=== PATIENT | male | born 1960 | race Caucasian/White ===

== ENCOUNTER 2018-11-01 20:43 | Emergency (ER) | payer OTHER, SELFPAY ==
[2018-11-01 20:44] VITALS: BP 203/114; PULSE 90; RESP 18; TEMP 36.1; O2SAT 99; BMI 31.2
--- NOTE | 2018-11-01 20:47 | EKG12_ITS ---
Test Reason : CP Blood Pressure : / mmHG Vent. Rate : 096 BPM Atrial Rate : 096 BPM P-R Int : 118 ms QRS Dur : 104 ms QT Int : 348 ms P-R-T Axes : 047 082 065 degrees QTc Int : 439 ms Normal sinus rhythm Normal ECG Confirmed by MORRIS BLOUNT, REAGAN ([id number]), television news video editor SESAR FLORES ([id number]) on 11/05/2018 1:19:36 PM Referred By: DR LAM Confirmed By:REAGAN CACERES MD
--- NOTE | 2018-11-01 20:51 | ED.RN ---
CALLED FOR5 EKG, PULLED OLD EKGS FOR
--- NOTE | 2018-11-01 21:04 | ED.RN ---
EKG obtained in triage. When this RN went to start IV and obtain labs pt states he has to go outside and smoke before you start any of that crap
[2018-11-01 21:48] VITALS: BP 166/105; PULSE 90; RESP 18; O2SAT 97
[2018-11-01 21:50] VITALS: O2SAT 98
--- NOTE | 2018-11-01 22:00 | RAD_ITS ---
HISTORY: C/O ABD PAIN, CHEST PAIN AND HEADACHE X2 WEEKS. GETTING WORSE EXAMINATION/TECHNIQUE: XR Chest 1 View: COMPARISON: 06/22/15 CXR FINDINGS: LINES/DEVICES: None. LUNGS: No consolidation, edema or effusion. No pneumothorax. MEDIASTINUM AND CARDIOVASCULAR STRUCTURES: Cardiac silhouette not enlarged. Central airways and mediastinal contour are unremarkable. BONES AND SOFT TISSUES: Unremarkable. RAD/Chest 1 View (Portable) IMPRESSION: No radiographic evidence of acute cardiopulmonary disease. at 2240 Reported and signed by: Aston Gupta MD Electronically Signed: Aston Gupta, at 22:38 EDT Tel , Service support ,
[2018-11-01 22:19] LABS: Absolute Lymphocyte Count 2.44 X10^3/ul (0.83-4.51); Absolute Neutrophil Count 6.7 X10^3/uL (2.0-7.7); Basophil# 0.03 X10^3/uL; Basophil% 0.3 % (0-1); Eosinophil# 0.14 X10^3/uL; Eosinophils% 1.4 % (0-5); Hematocrit 48.5 % (40-54); Lymphocyte # 2.44 X10^3/ul (4.0); Lymphocyte % 24.6 % (19-41); Mean Corpuscular Volume 85.7 fL (80-94); Mean Platelet Vol. 9.2 fl (6.2-12.0); Monocyte# 0.62 X10^3/uL; Monocyte% 6.3 % (0-10); Neutrophil # 6.66 X10^3/uL (2.7-7.7); Neutrophil % 67.1 % (47-70); Platelet Count 181 K/mm3 (150-450); RBC Distribution Width CV 13.2 % (11.6-14.6); RBC Distribution Width SD 40.7 fl (35.1-43.9); Red Blood Count 5.66 M/mm3 (4.6-6.2); White Blood Count 9.9 K/mm3 (4.4-11.0)
[2018-11-01 22:26] LABS: Hemoglobin 16.8 g/dl (13.0-16.5); Mean Corp Hgb Conc 34.6 g/gl (32-36); Mean Corpuscular Hgb 29.7 pg (27.0-32.0); POSITIVE COUNT NO; POSITIVE DIFFERENTIAL NO; POSITIVE MORPHOLOGY NO
[2018-11-01 22:31] LABS: Anion Gap 7 (5-15); BUN 21 mg/dL (7-18); BUN/Creat Ratio 17.8 RATIO (10-20); Calcium,Total 8.4 mg/dL (8.5-10.1); Chloride 108 mmol/L (98-107); Creatinine, Serum 1.18 mg/dL (0.70-1.30); EST Glomerular Filtration Rate 68 mL/min (>60); Est Glom Filt Rate - Afr Amer 82 mL/min (>60); Estimated Creatinine Clearance 85.82 ml/min; Glucose 142 mg/dL (74-106); Potassium 4.3 mmol/L (3.5-5.1); Sodium Level 139 mmol/L (136-145)
[2018-11-01] MEDS: Morphine 4 MG/ML Syringe IV (22:39)
[2018-11-01] MEDS: Aspirin 81 MG TAB.CHEW 324 MG PO (22:39)
[2018-11-01 23:16] VITALS: PULSE 79; RESP 17; O2SAT 97
--- NOTE | 2018-11-01 23:40 | ED.RN ---
LAB CALLED, THE LIVER PROFILE RESULT WILL BE DELAYED
--- NOTE | 2018-11-02 00:03 | ED.VISSUMM ---
- ER Visit Summary Date of Service: 11/02/18 Chief Complaint: Chest pain History of Present Illness: The patient is a 58 M who presents with chest pain and abdominal pain that began tonight. Patient states the pain is over the left side of his chest. Patient describes as a pressure. Patient states nothing seems to make it better or worse. Recent states his abdominal pain is over the epigastric area and radiates up into his chest. Patient denies any nausea or vomiting. Patient does admit to some diaphoresis and shortness of breath. Patient also admits to a cough. Patient denies any sputum production. Patient does admit to some lightheadedness and some palpitations. Patient also admits to a headache. Patient denies any fevers or chills. Patient has a history of hypertension. Patient has a family history of coronary artery disease in his father brother at a young age. Patient is a smoker. Patient denies any PE risk factors. Physical Examination: Vital signs are stable except for an elevated blood pressure of 203/114. Patient is afebrile. Patient is in no acute distress. Oral mucosa is pink and moist. Neck is supple. Trachea is midline. There is no JVD noted. Heart was regular rate and rhythm. Lungs are clear and equal bilaterally. Abdomen is soft. Bowel sounds are normal. There is some mild epigastric tenderness. There is no rebound or guarding noted. There is no distention. Cranial nerves II through XII are intact. There are no focal motor or sensory deficits noted. Test Results: EKG showed normal sinus rhythm with a rate of 96. There are no acute ST or T wave changes noted. This was unchanged compared to previous EKG dated 06/23/2015. Portable chest x-ray was obtained. There is no acute cardiopulmonary process. CBC and basic metabolic profile were obtained and were within normal limits. Hepatic profile and lipase were obtained and are normal. Troponin was normal. Emergency Department Course and Treatment: Patient was given aspirin. Patient was given an injection of morphine for his headache. Patient felt better on reevaluation. Patient was still having some mild epigastric pain. Patient has a ALIA risk score of 2. Patient wants to go home. Patient was instructed to follow-up with his primary care physician in 3 to 5 days. Patient was instructed on signs and symptoms which should prompt return to the emergency department. Patient understood and was agreeable with plan. All questions were answered. Disposition: Discharge home Impression: 1. Epigastric abdominal pain 2. Chest pain 3. Headache This note was generated with [employer] dictation software. It may contain incorrect words, spelling, and punctuation that were not noted in review of the chart prior to signing ED Disposition - Plan for ED Patient: Disposition: Home or Assisted Living Diagnosis: Epigastric abdominal pain of unknown etiology, Chest pain of uncertain etiology, Headache Instructions: CHEST PAIN, Uncertain Cause, EPIGASTRIC PAIN (Uncertain cause) Referrals: Gunner Mcbride MD [Primary Care Provider] - 3-5 Days
[2018-11-02 00:08] VITALS: BP 176/105; PULSE 73; RESP 21; O2SAT 97
[2018-11-02 00:09] LABS: AST(SGOT) 31 U/L (15-37); Alanine Aminotransfer ALT/SGPT 31 U/L (16-61); Albumin, Serum 3.5 g/dL (3.2-5.0); Alkaline Phosphatase 113 U/L (45-117); Bilirubin, Direct < 0.05 mg/dL (0.00-0.30); Globulin 3.7 g/dL (2.2-4.2); Lipase 82 U/L (73-393); Protein, Total 7.2 g/dL (6.4-8.2)
--- NOTE | 2018-11-02 00:31 | ED.RN ---
DR. RANGEL INFORMED OF PT BP. NO NEW ORDERS AT THIS TIME. WILL CONTINUE TO MONITOR.
[2018-11-02 01:23] VITALS: BP 171/85; PULSE 60; RESP 18; O2SAT 98
--- NOTE | 2018-11-02 01:33 | ED.RN ---
PT EDUCATED ON BLOOD PRESSURE MEDICATION AND IMPORTANCE OF MONITORING BP AT HOME. PT DISCUSSED MATTERS WITH DR. RANGEL ALSO. PT VERBALIZES UNDERSTANDING.
== END 2018-11-02 01:24 | disposition home or self-care (01) ==
PROVIDERS: Emergency Provider Emergency Medicine; Family Provider Family Medicine; PCP Family Medicine
DX: R10.13 Epigastric pain (principal); R07.9 Chest pain, unspecified; R05 Cough; R51 Headache; Z82.49 Family history of ischemic heart disease and other diseases of the circulatory system; I10 Essential (primary) hypertension; J44.9 Chronic obstructive pulmonary disease, unspecified; F17.210 Nicotine dependence, cigarettes, uncomplicated
CPT/HCPCS: 71045; 80048; 80076; 83690; 84484; 85025; 93005; 96374; 99284; A4216

== ENCOUNTER 2019-04-24 19:44 | Emergency (ER) | payer OTHER, SELFPAY ==
[2019-03-22 12:09] VITALS: BMI 31.2
[2019-04-24] VITALS (7 sets, daily range): BP systolic 178–199; BP diastolic 91–105; PULSE 82–95; RESP 18–22; TEMP 36.6–37; O2SAT 94–98; BMI 28.7
--- NOTE | 2019-04-24 20:51 | EKG12_ITS ---
Test Reason : CP Blood Pressure : / mmHG Vent. Rate : 083 BPM Atrial Rate : 083 BPM P-R Int : 124 ms QRS Dur : 106 ms QT Int : 360 ms P-R-T Axes : 032 080 109 degrees QTc Int : 423 ms Normal sinus rhythm Incomplete right bundle branch block ST & T wave abnormality, consider lateral ischemia Abnormal ECG Confirmed by GÓMEZ BLOUNT, PB ([id number]), sports editor RHIANNA MONROE ([id number]) on 04/26/2019 10:31:46 AM Referred By: ROB Confirmed By:GUERRERO MAGAÑA MD
--- NOTE | 2019-04-24 20:52 | ED.VIS.DYS ---
History of Present Illness Chief Complaint: Chest Pain Informant: Patient Onset: Today - this AM; present all day Activity at onset: - - coughing Timing: Intermittent Quality: - - pressure. location: left chest; no radiation Current Severity: Moderate Maximum Severity: Moderate Worsened by: Coughing Relieved by: Rest Associated Symptoms: Cough - occasionally productive, but I haven't seen it, I just swallow it. Chest Pain: Pressure - left chest Narrative: History of COPD, has had a cough and increased COPD symptoms for the past 3 days. No fevers or chills or leg swelling or orthopnea. Has a history of heart attack, never had intervention or surgery for that but is treated medically. He has had bilateral ear discharge and decreased hearing for the past month. He was seen in urgent care 3 days ago and prescribed drops for otitis externa, he did them on both sides and they did not help at all. He does have ear pain. He states it started with 1 year and then went to the other, he does not remember feeling a sudden pop or anything obvious. 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 (2) COPD (chronic obstructive pulmonary disease) Status: Chronic (3) Essential (primary) hypertension Status: Chronic (4) Hyperlipidemia Status: Chronic (5) Right bundle branch block Status: Chronic (6) Tobacco abuse disorder Status: Chronic Past Medical History - Allergies and Home Meds Allergies/Adverse Reactions: Allergies varenicline [From Chantix] Allergy (Verified 04/24/19 19:49) rash rash Primary Care Physician: Gunner Mcbride MD [Primary Care Provider] - Surgical History: - - Cardiac catheterization estimated 2009 Lives: Spouse/ Significant Other Smoking Status: Current every day smoker Drugs: None - Family History Sibling Family History: Family History (Last Reviewed 03/22/19 @ 12:09 by Zandra Gama) Mother Cancer Father Hypertension Diabetes Brother Hypertension COPD (chronic obstructive pulmonary disease) CAD (coronary artery disease) Family History: Reports: Heart Disease - One brother with history of heart attack, another brother with multiple stents Review of Systems General: Reports: Malaise. Denies: Chills, Fever, Sweats Eyes: Denies: Visual changes - bilaterally, Diplopia ENT: Reports: Bilateral ear pain - And discharge with decreased hearing. Denies: Rhinorrhea, Sore throat Cardiovascular: Reports: Chest pain. Denies: Palpitations Respiratory: Reports: Dyspnea, Cough, Sputum, Dyspnea on exertion. Denies: Orthopnea Gastrointestinal: Denies: Abdominal pain, Nausea, Vomiting, Diarrhea, Melena, Hematochezia Genitourinary: Denies: Dysuria, Hematuria, Frequency Musculoskeletal: Reports: Back pain - Low back today. Denies: Swelling, Extremity Pain Skin: Denies: Rash, Wounds Neurological: Denies: Headache, Weakness, Numbness Physical Exam Vital Signs/Narrative: Vital Signs Temp Pulse Resp BP Pulse Ox 04/24/19 19:45 98.6 F 95 18 199/105 H 95 Inital Vital Signs reviewed: Yes General: Well nourished, Well developed, No Acute Distress Head: Normocephalic, Atraumatic Eyes: Perrl, EOMI ENT: Moist mucous membranes, No rhinorrhea, - - There is pain with manipulation of the pinna and tragus in both ears. Both canals are mildly swollen, erythematous, and tender on speculum exam. A small part of the tympanic membrane can be visualized on the right, but uncertain about visualizing it on the left due to discharge being present. The canals are nonswollen shut. The discharge on the left ear is foul-smelling. Neck: Supple, Nontender, No lymphadenopathy, No JVD Cardiovascular: Regular rate, Regular rhythm, No murmurs Respiratory: No distress, CTA bilaterally, Chest nontender, Diminished - Throughout, symmetrically Abdomen: Soft, Nontender, Nondistended, Normal bowel sounds Back: Nontender, Normal Inspection Extremities: Nontender, No edema. Negative for: Calf Tenderness Skin: Normal color, No rash, No Trauma Neurological: Alert, Oriented x3, Cranial nerves II-XII grossly intact, Normal Strength, Normal Sensation, Normal Gait Psychological: Normal affect, Normal Mood Diagnostic/Tx/Re-eval Impressions Chest X-Ray 04/24/19 21:17 IMPRESSION: Old granulomatous disease on the left. No acute cardiopulmonary pathology Electronically Signed: Gunner Yip MD at 21:29 EST , Service support , 04/24/19 21:17 Chest PA and Lateral [RAD] Stat Laboratory Results 04/24/19 04/24/19 20:15 20:15 WBC 8.1 RBC 5.22 Hgb 15.8 Hct 44.9 MCV 86.0 MCH 30.3 MCHC 35.2 RDW Std Deviation 38.7 RDW Coeff of Juan José 12.5 Plt Count 170 MPV 9.4 Immature Gran % (Auto) 0.200 Neut % (Auto) 67.7 Lymph % (Auto) 18.1 L [place] % (Auto) 12.3 H Eos % (Auto) 1.0 Baso % (Auto) 0.7 Absolute Neuts (auto) 5.4 Absolute Lymphs (auto) 1.46 Nucleated RBC % 0 Sodium 142 Potassium 3.8 Chloride 109 H Carbon Dioxide 28.0 Anion Gap 5 BUN 17 Creatinine 1.12 Estim Creat Clear Calc 90.42 Est GFR (MDRD) Af Amer 87 Est GFR (MDRD) Non-Af 72 BUN/Creatinine Ratio 15.2 Glucose 124 H Calcium 8.4 L Troponin I 0.019 - Rhythm Strip Rhythm Strip: Sinus Rhythm Rate: 83 Ectopy: None - EKG Initial EKG Interpretation: Sinus Rhythm, No Acute Injury Pattern, Inverted T-Waves - Laterally without ST segment deviations Prior: Changed - Compared with 10/2018 Treatment - Dyspnea: Albuterol, Atrovent, Steroid Repeat Evaluation: Improved - Medical Decision Making Patient presenting with a COPD exacerbation that is relatively mild. Chest x-ray shows no pneumonia, and he feels better after nebulizer treatment. Additionally, his chest discomfort improved after a nebulizer treatment. Given that he had some mild nonspecific repolarization abnormalities on his EKG, he has been having chest discomfort all day and his troponin is negative, and there is no sign of ST segment deviation, and given that it improved with a nebulizer, I suspect it is pulmonary in etiology. It is not pleuritic with deep inspiration, only worse when he coughs, and he has no signs of a DVT, nor a history of thromboembolic disease. I met a very low suspicion of pulmonary embolus here. I think he is stable to be discharged home on an antibiotic to prevent bacterial superinfection and prednisone for his COPD. With regards to his ears, exam is limited due to painful speculum exam and discharge especially in the canal of the left ear. His exam certainly consistent with bilateral otitis externa, he has no mastoid tenderness, swelling, erythema to suggest mastoiditis or malignant otitis. Regardless since he failed topical therapy, and I cannot rule out middle ear pathology, I think it would be reasonable to place him on an antibiotic which we are already doing for COPD, and have him follow-up with ENT. I discussed this with him, he states he already has an appointment with ENT 5 days from now on Monday. ED Disposition - Plan for ED Patient: Disposition: Home or Assisted Living Diagnosis: Bilateral otitis externa, Left-sided chest pain, COPD exacerbation Instructions: CHEST PAIN, NonCardiac, Copd Flare Prescriptions: Prednisone [Deltasone] 40 mg PO DAILY #10 tab Transmission Status: Pending to [facility] levoFLOXacin tablet [Levaquin] 500 mg PO DAILY #7 tab Transmission Status: Pending to [facility] Referrals: Gunner Mcbride MD [Primary Care Provider] - 3-5 Days if not improving
[2019-04-24] MEDS: Ipratropium/Albuterol Sulfate 3 ML AMPUL.NEB INHALATION (21:01)
[2019-04-24] MEDS: MethylPREDNISolone 125 MG/2 ML Vial IV (21:04)
--- NOTE | 2019-04-24 21:17 | RAD_ITS ---
STUDY: X-RAY CHEST REASON FOR EXAM: Male, 58 years old. COUGH, SOB, LEFT SIDED CHEST PAIN TECHNIQUE: PA and lateral COMPARISON: None. FINDINGS: Lungs are mildly hyperinflated but clear. There is tiny calcified granuloma in left lower lobe. There is no demonstrated pleural abnormality. Normal size heart. Normal mediastinum and hetal. Normal visualized pulmonary arteries. Normal visualized aortic arch and descending thoracic aorta. Dorsal spine demonstrates mild spondylosis.. Normal visualized ribs, clavicles, and shoulders. There is no demonstrated abnormality of the visualized soft tissue structures of the upper abdomen. RAD/Chest PA and Lateral IMPRESSION: Old granulomatous disease on the left. No acute cardiopulmonary pathology Electronically Signed: Gunner Yip MD at 21:29 EST , Service support ,
[2019-04-24 21:24] LABS: Absolute Lymphocyte Count 1.46 X10^3/uL (0.83-4.51); Absolute Neutrophil Count 5.4 X10^3/uL (2.0-7.7); Basophil# 0.06 X10^3/uL; Basophil% 0.7 % (0-1); Eosinophil# 0.08 X10^3/uL; Hematocrit 44.9 % (40-54); Hemoglobin 15.8 g/dL (13.0-16.5); Lymphocyte # 1.46 X10^3/ul (4.0); Lymphocyte % 18.1 % (19-41); Mean Corp Hgb Conc 35.2 g/dL (32-36); Mean Corpuscular Hgb 30.3 pg (27.0-32.0); Mean Platelet Vol. 9.4 fl (6.2-12.0); Monocyte# 0.99 X10^3/uL; Monocyte% 12.3 % (0-10); NRBC Flagged by Analyzer 0 % (0-5); Neutrophil # 5.44 X10^3/uL (2.7-7.7); Neutrophil % 67.7 % (47-70); Platelet Count 170 K/mm3 (150-450); RBC Distribution Width CV 12.5 % (11.6-14.6); RBC Distribution Width SD 38.7 fl (35.1-43.9); Red Blood Count 5.22 M/mm3 (4.6-6.2); White Blood Count 8.1 K/mm3 (4.4-11.0)
[2019-04-24 21:38] LABS: Anion Gap 5 (5-15); BUN 17 mg/dL (7-18); BUN/Creat Ratio 15.2 RATIO (10-20); Calcium,Total 8.4 mg/dL (8.5-10.1); Chloride 109 mmol/L (98-107); Creatinine, Serum 1.12 mg/dL (0.70-1.30); EST Glomerular Filtration Rate 72 mL/min (>60); Est Glom Filt Rate - Afr Amer 87 mL/min (>60); Estimated Creatinine Clearance 90.42 ml/min; Glucose 124 mg/dL (74-106); Potassium 3.8 mmol/L (3.5-5.1); Sodium Level 142 mmol/L (136-145)
[2019-04-24] MEDS: cloNIDine HCl 0.1 MG Tablet 0.2 MG PO (22:34)
== END 2019-04-24 22:52 | disposition home or self-care (01) ==
PROVIDERS: Emergency Provider Emergency Medicine; Family Provider Family Medicine; PCP Family Medicine
DX: J44.1 Chronic obstructive pulmonary disease with (acute) exacerbation (principal); H60.93 Unspecified otitis externa, bilateral; I25.10 Atherosclerotic heart disease of native coronary artery without angina pectoris; I10 Essential (primary) hypertension; E78.5 Hyperlipidemia, unspecified; I45.10 Unspecified right bundle-branch block; F17.210 Nicotine dependence, cigarettes, uncomplicated; I25.2 Old myocardial infarction; Z88.1 Allergy status to other antibiotic agents
CPT/HCPCS: 71046; 80048; 84484; 85025; 93005; 94640; 96374; 99285; A4216

== ENCOUNTER 2020-09-27 19:52 | Emergency (ER) | payer BC, SELFPAY ==
[2020-09-27] VITALS (10 sets, daily range): BP systolic 171–257; BP diastolic 97–131; PULSE 67–87; RESP 14–18; TEMP 36.4; O2SAT 97–99; BMI 31.8
--- NOTE | 2020-09-27 20:15 | EKG12_ITS ---
Test Reason : HYPERTENSION Blood Pressure : / mmHG Vent. Rate : 081 BPM Atrial Rate : 081 BPM P-R Int : 154 ms QRS Dur : 112 ms QT Int : 378 ms P-R-T Axes : 067 062 110 degrees QTc Int : 439 ms Normal sinus rhythm ST & T wave abnormality, consider lateral ischemia Abnormal ECG Confirmed by MORRIS BLOUNT, REAGAN ([id number]), editor managing newspaper SESAR FLORES ([id number]) on 09/30/2020 12:49:21 PM Referred By: ISABEL Confirmed By:REAGAN CACERES MD
--- NOTE | 2020-09-27 20:16 | CT_ITS ---
EXAM: CT HEAD WITHOUT INTRAVENOUS CONTRAST : 1960 CLINICAL INDICATION: headache, elevated htn, normally controlled TECHNIQUE: Multiple axial images were obtained of the head without intravenous contrast. This CT exam was performed using one or more of the following dose reduction techniques: automated exposure control, adjustment of the mA and/or kV according to patient size, and/or use of iterative reconstruction technique. This report was created using [employer] report generation technology. COMPARISON: 06/02/2014 FINDINGS: BRAIN AND EXTRA-AXIAL SPACES: Unremarkable. No intra- or extra-axial hemorrhage. No evidence of acute infarct. No intracranial mass or mass effect. There is preservation of the whitfield/white matter interface. Posterior fossa structures are unremarkable. Ventricles are appropriate for age. No hydrocephalus. Basal cisterns are patent. BONES/JOINTS: Unremarkable. No discrete lytic or blastic abnormalities. SINUSES: Unremarkable as visualized. Clear. MASTOID AIR CELLS: Unremarkable. Clear. ORBITS: Visualized globes, extraocular muscles, optic nerves and retrobulbar fat appear unremarkable. CT/Brain/Head without Contrast IMPRESSION: Negative head/brain CT without intravenous contrast. Individualized dose optimization techniques were used for this CT. at 2111 Reported and signed by: Raul Castillo MD Electronically Signed: Raul Castillo MD at 21:10 EDT Tel , Service support ,
--- NOTE | 2020-09-27 20:18 | EX.ED.DYSGE1 ---
HPI History of Present Illness Chief Complaint: Dental Narrative Narrative: 59-year-old male presenting for chief complaint of dental pain he has a bad right upper tooth. He states he was unable to get into a dentist. Patient states that he believes his dental pain is driving his blood pressure up. He does not check it on a regular basis. He cannot recall his medications that he takes but he states have not changed. He has not seen his physician in a while. He denies chest pain or shortness of breath. He does complain of headache which is pretty severe as well as dental pain. [facility] Medical History (Updated 09/27/20 @ 22:[address] Abimael Owen DO) Arthritis Atherosclerotic heart disease [place] coronary artery w/angina pectoris COPD (chronic obstructive pulmonary disease) Essential (primary) hypertension Heart disease Right bundle branch block SOB (shortness of breath) Stomach ulcer Home Medications hydrochlorothiazide 12.5 mg capsule 12.5 mg PO DAILY cap 06/18/20 [History Last Taken Unknown] losartan 100 mg tablet 100 mg PO DAILY tab 06/18/20 [History Last Taken Unknown] amoxicillin-pot clavulanate [Augmentin] 1 tab PO BID #20 tab 09/27/20 [Rx Last Taken Unknown] metoprolol succinate 25 mg PO DAILY #30 ea 09/27/20 [Rx Last Taken Unknown] oxycodone-acetaminophen [Percocet] 1 tab PO Q6H PRN 3 Days #12 tab 09/27/20 [Rx Last Taken Unknown] Allergy/AdvReac Type Severity Reaction Status Date / Time No Known Allergies Allergy Verified 09/27/20 19:58 Family History Mother Cancer Father Hypertension Diabetes Brother Hypertension COPD (chronic obstructive pulmonary disease) CAD (coronary artery disease) Surgical History History of left heart catheterization Social History Smoking Status: Current every day smoker tobacco type: cigarettes alcohol intake: never substance use type: does not use ROS ROS ED Constitutional Constitutional ED: Denies chills, fever(s) or sweats Eyes Eyes: Denies blurry vision or change in vision ENT ENT ED: Reports other Details: Dental pain ; Denies ear pain, rhinorrhea or sore throat Cardiovascular Cardiovascular: Denies chest pain, palpitations or racing heartbeat Respiratory/Chest Respiratory/Chest: Denies cough, dyspnea or sputum Gastrointestinal Gastrointestinal: Denies abdominal pain, constipation, diarrhea or vomiting Genitourinary Genitourinary ED: Denies dysuria, hematuria or urinary frequency Musculoskeletal Musculoskeletal: Denies arthralgias, myalgias or neck pain Integumentary Denies abscess, Abrasions or rash Neurologic Neurologic: Reports headache(s); Denies paresthesias or weakness Psychiatric Psychiatric: Denies anxiety, depression, suicidal ideation or suicidal thoughts Endocrine Endocrinology: Denies polydipsia or polyuria EXAM Physical Exam Const Vital Signs: 09/27/20 19:53 09/27/20 20:15 09/27/20 20:17 Temperature 97.6 F L Temperature Source Temporal Pulse Rate 87 80 77 Respiratory Rate 18 15 16 Blood Pressure 257/104 H 257/104 H Blood Pressure Mean 155 155 Pulse Ox 97 98 99 Oxygen Delivery Method Room Air Room Air Room Air 09/27/20 20:35 09/27/20 20:36 09/27/20 21:45 Temperature Temperature Source Pulse Rate 83 75 Respiratory Rate 18 16 Blood Pressure 248/122 H 231/131 H Blood Pressure Mean 164 164 Pulse Ox 98 98 Oxygen Delivery Method Room Air Room Air 09/27/20 22:11 09/27/20 22:30 09/27/20 22:44 Temperature Temperature Source Pulse Rate 67 76 Respiratory Rate 16 14 Blood Pressure 198/102 H 191/103 H 188/109 H Blood Pressure Mean 134 132 135 Pulse Ox Oxygen Delivery Method Positive well nourished General Appearance ED: NAD HEENT Negative for trauma or tenderness Eyes PERRL and EOMs intact bilaterally Resp normal respiratory effort and clear to auscultation bilaterally Cardio regular rate and regular rhythm Extremity normal to inspection General Extremety ED: Yes tenderness Neuro oriented x3 and CN's II-XII intact bilaterally Sensorium / Orientation: alert Psych mental status grossly normal Skin no rashes or lesions noted and no wounds MDM MDM MDM Narrative Medical decision making narrative: Patient was seen and evaluated on arrival for dental pain although it was noted that his blood pressure was very high and he was complaining of headache. He takes HCTZ 12.5 mg p.o. daily as well as losartan 100 mg p.o. daily. He has not seen his doctor in a long time and has not noted that his blood pressure was high but he also does not check. He complains of headache but has no chest pain, palpitations, shortness of breath. I did obtain CT of the brain which is negative. Chest x-ray as interpreted by myself shows no acute cardiopulmonary process. The radiologist does agree. EKG interpreted by myself shows a normal sinus rhythm with a ventricular rate of [address] changes in V5 V6 lead I and aVL which appear on previous EKG and there are no interval changes. Lab work-up today is unremarkable. Patient was given 2 doses of adenosine and 20 mg of labetalol and his blood pressure responded to 177/97 which I think is sufficient for tonight. I spoke with Dr. Cesar Gallagher who is on-call for his primary care doctor who recommended adding metoprolol XL to his regimen daily. He is to continue taking the other medications. Patient will follow up with dental provider to ensure resolution of his dental pain. Impression: 1. Hypertension established [id number] 2. Headache 3. Dental infection Lab Data Labs: Laboratory Results - last 24 hr 09/27/20 09/27/20 20:33 20:33 WBC 10.2 RBC 5.67 Hgb 17.2 H Hct 48.1 MCV 84.8 MCH 30.3 MCHC 35.8 RDW Std Deviation 38.5 RDW Coeff of Juan José 12.7 Plt Count 190 MPV 9.1 Immature Gran % (Auto) 0.500 Neut % (Auto) 61.3 Lymph % (Auto) 27.6 [place] % (Auto) 8.0 Eos % (Auto) 1.8 Baso % (Auto) 0.8 Absolute Neuts (auto) 6.2 Absolute Lymphs (auto) 2.81 Nucleated RBC % 0 Sodium 138 Potassium 3.9 Chloride 104 Carbon Dioxide 25.0 Anion Gap 9 BUN 13 Creatinine 1.04 Estim Creat Clear Calc 93.66 Est GFR (MDRD) Af Amer 94 Est GFR (MDRD) Non-Af 78 BUN/Creatinine Ratio 12.5 Glucose 156 H Calcium 8.5 Troponin I < 0.015 Radiography Diagnostic Testing: Radiology Impression Brain CT 09/27/20 20:16 IMPRESSION: Negative head/brain CT without intravenous contrast. Individualized dose optimization techniques were used for this CT. at 2111 Reported and signed by: Raul Castillo MD Electronically Signed: Raul Castillo MD at 21:10 EDT Tel , Service support , Chest X-Ray 09/27/20 20:47 IMPRESSION: No radiographic evidence of acute cardiopulmonary disease. at 2109 Reported and signed by: Raul Castillo MD Electronically Signed: Raul Castillo MD at 21:08 EDT Tel , Service support , Discharge Plan Triage Chief Complaint: Dental ED Provider: Abimael Owen Dx/Rx/DC Orders Instructions: Dental Abscess, ED Hypertension, Established Prescriptions: New metoprolol succinate 25 mg capsule,sprinkle,ER 24hr 25 mg PO DAILY Qty: 30 RF: 0 amoxicillin-pot clavulanate [Augmentin] 875-125 mg tablet 1 tab PO BID Qty: 20 RF: 0 oxycodone-acetaminophen [Percocet] 5-325 mg tablet 1 tab PO Q6H PRN (Reason: pain) 3 Days Qty: 12 RF: 0 No Action losartan 100 mg tablet 100 mg PO DAILY RF: 0 hydrochlorothiazide 12.5 mg capsule 12.5 mg PO DAILY RF: 0 Primary Care Provider: Gunner Mcbride Referrals: Gunner Mcbride MD [Primary Care Provider] - Disposition Disposition: Home, self care
[2020-09-27] MEDS: Ondansetron 4 MG/2 ML Vial IV (20:31)
[2020-09-27] MEDS: Morphine 4 MG/ML Syringe IV (20:31)
[2020-09-27] MEDS: hydrALAZINE 20 MG/ML Vial 10 MG IV ×2 (20:31→22:13)
[2020-09-27 20:37] LABS: Absolute Lymphocyte Count 2.81 X10^3/uL (0.83-4.51); Absolute Neutrophil Count 6.2 X10^3/uL (2.0-7.7); Basophil# 0.08 X10^3/uL; Basophil% 0.8 % (0-1); Eosinophil# 0.18 X10^3/uL; Eosinophils% 1.8 % (0-5); Hematocrit 48.1 % (40-54); Hemoglobin 17.2 g/dL (13.0-16.5); Lymphocyte # 2.81 X10^3/ul (0.83-4.51); Lymphocyte % 27.6 % (19-41); Mean Corp Hgb Conc 35.8 g/dL (32-36); Mean Corpuscular Hgb 30.3 pg (27.0-32.0); Mean Corpuscular Volume 84.8 fL (80-94); Mean Platelet Vol. 9.1 fl (6.2-12.0); Monocyte# 0.81 X10^3/uL; NRBC Flagged by Analyzer 0 % (0-5); Neutrophil # 6.24 X10^3/uL (2.7-7.7); Neutrophil % 61.3 % (47-70); Platelet Count 190 K/mm3 (150-450); RBC Distribution Width CV 12.7 % (11.6-14.6); RBC Distribution Width SD 38.5 fl (35.1-43.9); Red Blood Count 5.67 M/mm3 (4.6-6.2); White Blood Count 10.2 K/mm3 (4.4-11.0)
--- NOTE | 2020-09-27 20:47 | RAD_ITS ---
EXAM: XR CHEST, 1 VIEW : 1960 CLINICAL INDICATION: hypertension TECHNIQUE: Frontal view of the chest. This report was created using [employer] report generation technology. COMPARISON: 04/24/2019 FINDINGS: LUNGS AND PLEURAL SPACES: Unremarkable. No consolidation or edema. No pneumothorax. No effusion. HEART: Unremarkable. Cardiac silhouette not enlarged. MEDIASTINUM: Central airways and mediastinal contour are unremarkable. BONES/JOINTS: Unremarkable. SOFT TISSUES: Unremarkable. RAD/Chest 1 View (Portable) IMPRESSION: No radiographic evidence of acute cardiopulmonary disease. at 2109 Reported and signed by: Raul Castillo MD Electronically Signed: Raul Castillo MD at 21:08 EDT Tel , Service support ,
[2020-09-27 21:01] LABS: Anion Gap 9 (5-15); BUN 13 mg/dL (7-18); BUN/Creat Ratio 12.5 RATIO (10-20); Calcium,Total 8.5 mg/dL (8.5-10.1); Chloride 104 mmol/L (98-107); Creatinine, Serum 1.04 mg/dL (0.70-1.30); EST Glomerular Filtration Rate 78 mL/min (>60); Est Glom Filt Rate - Afr Amer 94 mL/min (>60); Estimated Creatinine Clearance 93.66 ml/min; Glucose 156 mg/dL (74-106); Potassium 3.9 mmol/L (3.5-5.1); Sodium Level 138 mmol/L (136-145)
[2020-09-27] MEDS: Labetalol (Prefilled) 20 MG/4 ML IV (21:41)
[2020-09-27] MEDS: oxyCODONE 5 MG Tablet PO (22:25)
[2020-09-27] MEDS: Amox/Clavulanate 875 MG Tablet PO (22:26)
== END 2020-09-27 23:18 | disposition home or self-care (01) ==
PROVIDERS: Emergency Provider Student in an Organized Health Care Education/Training Program; PCP Family Medicine
DX: I10 Essential (primary) hypertension (principal); R51.9 Headache, unspecified; K04.7 Periapical abscess without sinus; I25.10 Atherosclerotic heart disease of native coronary artery without angina pectoris; J44.9 Chronic obstructive pulmonary disease, unspecified; Z79.899 Other long term (current) drug therapy; F17.210 Nicotine dependence, cigarettes, uncomplicated; Z82.49 Family history of ischemic heart disease and other diseases of the circulatory system
CPT/HCPCS: 70450; 71045; 80048; 84484; 85025; 93005; 96374; 96375; 96376; 99285; A4216; J2405

== ENCOUNTER 2022-01-17 09:31 | Emergency (ER) | payer BC, SELFPAY ==
[2022-01-17 09:32] VITALS: BP 256/123; PULSE 89; RESP 16; TEMP 36.3; O2SAT 97; BMI 31.1
--- NOTE | 2022-01-17 09:48 | RAD_ITS ---
STUDY: X-RAY CHEST REASON FOR EXAM: Male, 61 years old. chest pain TECHNIQUE: Single AP portable view of the chest. COMPARISON: 09/27/2020 FINDINGS: The lungs are clear and expanded. There is no demonstrated pleural abnormality. Normal size heart. Normal mediastinum and hetal. Normal visualized pulmonary arteries. Normal visualized aortic arch and descending thoracic aorta. Normal visualized thoracic spine. Normal visualized ribs, clavicles, and shoulders. There is no demonstrated abnormality of the visualized soft tissue structures of the upper abdomen. RAD/Chest 1 View (Portable) IMPRESSION: Normal x-ray examination of the chest. Electronically Signed: Luisito Harley MD at 10:16 EDT ,
--- NOTE | 2022-01-17 09:48 | EKG12_ITS ---
Test Reason : CP Blood Pressure : / mmHG Vent. Rate : 084 BPM Atrial Rate : 084 BPM P-R Int : 128 ms QRS Dur : 112 ms QT Int : 366 ms P-R-T Axes : -05 055 115 degrees QTc Int : 432 ms Normal sinus rhythm Incomplete right bundle branch block Left ventricular hypertrophy with repolarization abnormality ( Stef product ) Cannot rule out Inferior infarct , age undetermined Abnormal ECG Confirmed by MORRIS BLOUNT, REAGAN ([id number]), film or videotape editor SESAR FLORES ([id number]) on 01/19/2022 10:54:26 AM Referred By: MYRIAM Confirmed By:REAGAN CACERES MD
[2022-01-17 10:03] LABS: Absolute Lymphocyte Count 0.98 X10^3/uL (0.83-4.51); Absolute Neutrophil Count 9.5 X10^3/uL (2.0-7.7); Basophil# 0.05 X10^3/uL; Basophil% 0.4 % (0-1); Eosinophil# 0.01 X10^3/uL; Eosinophils% 0.1 % (0-5); Hematocrit 48.1 % (40-54); Hemoglobin 17.5 g/dL (13.0-16.5); Lymphocyte # 0.98 X10^3/ul (0.83-4.51); Lymphocyte % 8.7 % (19-41); Mean Corp Hgb Conc 36.4 g/dL (32-36); Mean Corpuscular Hgb 30.4 pg (27.0-32.0); Mean Corpuscular Volume 83.5 fL (80-94); Monocyte# 0.64 X10^3/uL; Monocyte% 5.7 % (0-10); NRBC Flagged by Analyzer 0 % (0-5); Neutrophil % 84.7 % (47-70); Platelet Count 204 K/mm3 (150-450); RBC Distribution Width CV 12.7 % (11.6-14.6); RBC Distribution Width SD 38.2 fl (35.1-43.9); Red Blood Count 5.76 M/mm3 (4.6-6.2); White Blood Count 11.2 K/mm3 (4.4-11.0)
--- NOTE | 2022-01-17 10:09 | ED.VIS.CHEST ---
HPI History of Present Illness Chief Complaint: Chest Pain Narrative Narrative: 61-year-old male presenting with chest pressure which radiated to his left arm. He states he became nauseous and diaphoretic with this. He states the pain is lasted for about 2 hours now. It has been resolving since he has been resting in bed. This began when he was trying to install a telephone pole. He denies any trauma. He states that he has a history of heart issues. He states that the left side of my heart is . He denies history of cardiac stent. Patient does have hypertension, hyperlipidemia. He states he is an every day smoker and does not take any of his blood pressure medicines for at least 6 months because it makes him tired he does not want to climb up telephone poles. Patient does not remember the name of his medications. Patient does not remember the name of the doctor he sees at [facility]. He states he can tell his blood pressure is high because has had a slight hurt. He also complains of bilateral ear pain for 2 years. He has seen ENT for this and states he has chronic recurrent otitis externa. He has been on any medication for this in years. He denies fever, chills. He admits to a smoker's cough but nothing is changed. [facility] Medical History Arthritis Atherosclerotic heart disease [place] coronary artery w/angina pectoris Cellulitis of left elbow COPD (chronic obstructive pulmonary disease) Essential (primary) hypertension Heart disease Right bundle branch block SOB (shortness of breath) Stomach ulcer Uncontrolled hypertension Home Medications NK 01/17/22 [History Last Taken Unknown] Allergy/AdvReac Type Severity Reaction Status Date / Time No Known Allergies Allergy Verified 01/17/22 09:35 Family History Mother Cancer Father Hypertension Diabetes Brother Hypertension COPD (chronic obstructive pulmonary disease) CAD (coronary artery disease) Surgical History History of left heart catheterization Social History Smoking Status: Current every day smoker tobacco type: cigarettes alcohol intake: never substance use type: does not use ROS ROS ED Constitutional Constitutional ED: Denies chills or fever(s) Eyes Eyes: Denies none ENT ENT ED: Reports ear pain bilateral Cardiovascular Cardiovascular: Reports as per HPI Respiratory/Chest Respiratory/Chest: Reports cough; Denies dyspnea or dyspnea on exertion Gastrointestinal Gastrointestinal: Reports nausea; Denies abdominal pain Genitourinary Genitourinary ED: Denies dysuria Musculoskeletal Musculoskeletal: Denies arthralgias or back pain Integumentary Denies abscess Neurologic Neurologic: Reports headache(s); Denies paresthesias Psychiatric Psychiatric: Denies depression Endocrine Endocrinology: Denies cold intolerance or heat intolerance EXAM Physical Exam Const Vital Signs: 01/17/22 09:32 01/17/22 09:36 01/17/22 09:54 Temperature 97.4 F L Temperature Source Temporal Pulse Rate 89 Respiratory Rate 16 Respiratory Pattern Normal Blood Pressure 256/123 H Blood Pressure Mean 167 Pulse Ox 97 Oxygen Delivery Method Room Air Room Air 01/17/22 10:16 01/17/22 11:00 01/17/22 11:18 Temperature Temperature Source Pulse Rate 77 74 72 Respiratory Rate 16 19 H 18 Respiratory Pattern Blood Pressure 209/99 H 205/103 H 192/94 H Blood Pressure Mean 135 137 126 Pulse Ox 99 97 98 Oxygen Delivery Method Room Air Room Air Room Air Positive well nourished General Appearance ED: NAD; Negative for pallor HEENT Reports moist mucous membranes atraumatic Eyes PERRL and EOMs intact bilaterally Chest Wall inspection of chest normal and palpation of chest normal Resp normal respiratory effort and clear to auscultation bilaterally Auscultation: Negative for rales, rhonchi or wheezes Cardio regular rate GI normal to inspection, nondistended, normoactive bowel sounds Neuro oriented x3 and CN's II-XII intact bilaterally Sensorium / Orientation: awake and alert Motor Exam: strength 5/5 throughout Psych mental status grossly normal Skin no rashes or lesions noted General Skin Exam: Negative for jaundice or pallor Heart Score History: Moderately Suspicious ECG: Normal Age: >45 - <65 years Risk Factors: >/= 3 Risk Factors or History of CAD Score: 4 MDM MDM MDM Narrative Medical decision making narrative: Patient presenting with chest pain and elevated blood pressure. He is noncompliant with his blood pressure medications. He did state that his chest pain radiates to his jaw. I obtained an EKG which is a normal sinus rhythm with a ventricular rate of 84 bpm. There are some T wave inversions slight depressions in V5 and 6. Is also slight depression in V4. These are unchanged from his previous EKG. CBC unremarkable with exception of hemoconcentration of hemoglobin 17.5. Renal function and electrolytes are normal. High-sensitivity troponin initially was 35 and a second troponin is 50. Chest x-ray on my interpretation shows no acute cardiopulmonary process and radiologist agree. On arrival the patient was initially given a dose of labetalol 20 mg and when his blood pressure came down slightly he was given 10 hydralazine. Blood pressure currently 185/90 after evaluating him in the room. I spoke with Dr. Mcbride as he stated this was his primary care provider although Dr. Mcbride states that his primary care provider is Dr. Jacob. The patient's last blood pressure medication was HCTZ 12.5 mg and Cozaar 100 mg. Currently he had not been seen since January of last year when he showed up after 6 months of being noncompliant and was hypertensive at 202/92. He did not follow-up for blood pressure checks. He was referred to cardiology and not for follow-up for this. 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 He does not want to stay in the hospital although this would be the recommendation for him. I feel he has the capacity to make this decision. Dr. Mcbride did recommend putting him on Cozaar 100 mg of metoprolol XR 50 mg daily as well as a baby aspirin. Patient is counseled on taking his medications and making follow-up appointments. He is to keep a blood pressure diary. Impression: 1. Chest pain 2. Medical noncompliance 3. Hypertension Lab Data Attestation: I reviewed the patient's lab results. Labs: Laboratory Results - last 24 hr 01/17/22 01/17/22 01/17/22 09:35 09:35 12:12 WBC 11.2 H RBC 5.76 Hgb 17.5 H Hct 48.1 MCV 83.5 MCH 30.4 MCHC 36.4 H RDW Std Deviation 38.2 RDW Coeff of Juan José 12.7 Plt Count 204 MPV 9.0 Immature Gran % (Auto) 0.400 Neut % (Auto) 84.7 H Lymph % (Auto) 8.7 L Knott % (Auto) 5.7 Eos % (Auto) 0.1 Baso % (Auto) 0.4 Absolute Neuts (auto) 9.5 H Absolute Lymphs (auto) 0.98 Nucleated RBC % 0 Sodium 139 Potassium 3.9 Chloride 106 Carbon Dioxide 26.0 Anion Gap 7 BUN 17 Creatinine 1.10 Estim Creat Clear Calc 86.42 Est GFR (MDRD) Af Amer 88 Est GFR (MDRD) Non-Af 73 BUN/Creatinine Ratio 15.5 Glucose 138 H Calcium 9.5 Troponin I High Sens 35 50 Radiography Diagnostic Testing: Clinical Impression(s) from Imaging Studies Chest X-Ray 01/17/22 09:48 IMPRESSION: Normal x-ray examination of the chest. Electronically Signed: Luisito Harley MD at 10:16 EDT , Discharge Plan Triage Chief Complaint: Chest Pain ED Provider: Abimael Owen Dx/Rx/DC Orders Prescriptions: No Action NK Primary Care Provider: Gunner Mcbride Referrals: Gunner Mcbride MD [Primary Care Provider] -
[2022-01-17] MEDS: Aspirin 325 MG Tablet PO (10:14)
[2022-01-17] MEDS: Labetalol (Prefilled) 20 MG/4 ML IV (10:14)
[2022-01-17 10:16] VITALS: BP 209/99; PULSE 77; RESP 16; O2SAT 99
[2022-01-17 10:20] LABS: Anion Gap 7 (5-15); BUN 17 mg/dL (7-18); BUN/Creat Ratio 15.5 RATIO (10-20); Calcium,Total 9.5 mg/dL (8.5-10.1); Chloride 106 mmol/L (98-107); EST Glomerular Filtration Rate 73 mL/min (>60); Est Glom Filt Rate - Afr Amer 88 mL/min (>60); Estimated Creatinine Clearance 86.42 ml/min; Glucose 138 mg/dL (74-106); Potassium 3.9 mmol/L (3.5-5.1); Sodium Level 139 mmol/L (136-145); Troponin-I HS (w/2H Reflex) 35 pg/mL (3.0-78.0)
[2022-01-17 11:00] VITALS: BP 205/103; PULSE 74; RESP 19; O2SAT 97
[2022-01-17] MEDS: hydrALAZINE 20 MG/ML Vial 5 MG IV (11:17)
[2022-01-17 11:18] VITALS: BP 192/94; PULSE 72; RESP 18; O2SAT 98
[2022-01-17 11:58] LABS: Reflex Troponin-HS? (from REC) Y
[2022-01-17 12:39] LABS: Troponin-I HS 50 pg/mL (3.0-78.0)
[2022-01-17 13:38] VITALS: BP 190/88; PULSE 72; RESP 18; O2SAT 98
== END 2022-01-17 13:42 | disposition home or self-care (01) ==
PROVIDERS: Emergency Provider Student in an Organized Health Care Education/Training Program; PCP Family Medicine; Visit Provider Student in an Organized Health Care Education/Training Program
DX: R07.9 Chest pain, unspecified (principal); I10 Essential (primary) hypertension; F17.210 Nicotine dependence, cigarettes, uncomplicated; I25.10 Atherosclerotic heart disease of native coronary artery without angina pectoris; Z79.82 Long term (current) use of aspirin; Z79.899 Other long term (current) drug therapy; Z91.19 Patient's noncompliance with other medical treatment and regimen
CPT/HCPCS: 71045; 80048; 84484; 85025; 93005; 99284; A4216

== ENCOUNTER 2023-07-12 21:41 | Inpatient (IN) | payer MEDICAID, SELFPAY ==
[2023-07-12] VITALS (9 sets, daily range): BP systolic 173–247; BP diastolic 88–135; PULSE 62–96; RESP 7–20; TEMP 36.5–36.6; O2SAT 95–98; BMI 29.9
--- NOTE | 2023-07-12 22:04 | EKG12_ITS ---
Test Reason : CP Blood Pressure : / mmHG Vent. Rate : 089 BPM Atrial Rate : 089 BPM P-R Int : 156 ms QRS Dur : 112 ms QT Int : 384 ms P-R-T Axes : 057 049 113 degrees QTc Int : 467 ms Normal sinus rhythm Possible Left atrial enlargement Incomplete right bundle branch block (cited on or before 17-JAN-2022) INFERIOR INFARCT, AGE UNDETERMINED ST & T wave abnormality, consider lateral ischemia Abnormal ECG Confirmed by Jarod Chu ([id number]), deputy editor in chief KANU POLLARD ([id number]) on 07/14/2023 2:08:08 PM Referred By: MARCELL Confirmed By:Jarod Chu
--- NOTE | 2023-07-12 22:12 | RAD_ITS ---
EXAM: XR CHEST, 1 VIEW CLINICAL INDICATION: chest pain TECHNIQUE: Frontal view of the chest. COMPARISON: January 17, 2022. FINDINGS: LUNGS AND PLEURAL SPACES: Unremarkable. No consolidation or edema. No pneumothorax. No effusion. HEART: Unremarkable. Cardiac silhouette not enlarged. MEDIASTINUM: Central airways and mediastinal contour are unremarkable. BONES/JOINTS: Unremarkable. No acute fracture. SOFT TISSUES: Unremarkable. RAD/Chest 1 View (Portable) IMPRESSION: No radiographic evidence of acute cardiopulmonary disease. Electronically Signed: Kelley More MD at 23:31 EDT ,
[2023-07-12] MEDS: Aspirin 81 MG TAB.CHEW 324 MG PO (22:14)
[2023-07-12 22:15] LABS: Absolute Lymphocyte Count 2.36 X10^3/uL (0.83-4.51); Absolute Neutrophil Count 5.5 X10^3/uL (2.0-7.7); Basophil# 0.13 X10^3/uL; Basophil% 1.5 % (0-1); Eosinophil# 0.22 X10^3/uL; Eosinophils% 2.5 % (0-5); Hematocrit 47.2 % (40-54); Hemoglobin 16.9 g/dL (13.0-16.5); Lymphocyte # 2.36 X10^3/ul (0.83-4.51); Lymphocyte % 26.6 % (19-41); Mean Corp Hgb Conc 35.8 g/dL (32-36); Mean Corpuscular Hgb 29.9 pg (27.0-32.0); Mean Corpuscular Volume 83.4 fL (80-94); Monocyte# 0.63 X10^3/uL; Monocyte% 7.1 % (0-10); NRBC Flagged by Analyzer 0 % (0-5); Neutrophil # 5.48 X10^3/uL (2.7-7.7); Neutrophil % 61.7 % (47-70); Platelet Count 192 K/mm3 (150-450); RBC Distribution Width CV 13.5 % (11.6-14.6); RBC Distribution Width SD 40.4 fl (35.1-43.9); Red Blood Count 5.66 M/mm3 (4.6-6.2); White Blood Count 8.9 K/mm3 (4.4-11.0)
[2023-07-12] MEDS: Nitroglycerin SL (ED/IMG/CATH) 0.4 MG TABLET 0.400000000000000022 MG SL (22:15)
--- NOTE | 2023-07-12 22:21 | EDS_ITS ---
HPI History of Present Illness Chief Complaint: Chest Pain Informant: patient and spouse/S.O. Narrative Narrative: Patient is a 62-year-old male with past medical history of hypertension COPD and coronary artery disease. He states that he lost his job a few months ago and since that time his not been able to afford his medication. He states that he is cut back on smoking from approximately 3 packs a day down to a quarter of a pack. However he states that he will have sudden bouts where he has chest pain and shortness of breath and makes him feel like he cannot breathe . He states he checks his blood pressure at home and is normally high but since he has not been able to have his medication his blood pressure has been even higher. He states that this evening he had a bout of chest discomfort with shortness of breath that was more intense than his previous episodes and was lasting longer and secondary to his comes in for evaluation. [facility] Medical History Arthritis Atherosclerotic heart disease [place] coronary artery w/angina pectoris Cellulitis of left elbow COPD (chronic obstructive pulmonary disease) Essential (primary) hypertension Heart disease Right bundle branch block SOB (shortness of breath) Stomach ulcer Uncontrolled hypertension Home Medications aspirin 81 mg tablet,delayed release 81 mg PO DAILY #30 tabs 01/17/22 [Rx Last Taken Unknown] losartan 100 mg tablet (Cozaar) 100 mg PO DAILY #30 tabs 01/17/22 [Rx Last Taken Unknown] metoprolol succinate 50 mg tablet,extended release 24 hr 50 mg PO DAILY #30 tabs 01/17/22 [Rx Last Taken Unknown] Allergy/AdvReac Type Severity Reaction Status Date / Time No Known Allergies Allergy Verified 01/17/22 09:35 Family History Mother Cancer Father Hypertension Diabetes Brother Hypertension COPD (chronic obstructive pulmonary disease) CAD (coronary artery disease) Surgical History History of left heart catheterization Social History Smoking Status: Current every day smoker tobacco type: cigarettes alcohol intake: never substance use type: does not use ROS ROS ED Constitutional Constitutional ED: Denies chills or fever(s) Eyes Eyes: Reports blurry vision ENT ENT ED: Denies sore throat Cardiovascular Cardiovascular: Reports chest pain; Denies palpitations or racing heartbeat Respiratory/Chest Respiratory/Chest: Reports cough and dyspnea Gastrointestinal Gastrointestinal: Denies abdominal pain, diarrhea, nausea or vomiting Genitourinary Genitourinary ED: Denies dysuria Musculoskeletal Musculoskeletal: Denies back pain or myalgias Integumentary Denies rash Neurologic Neurologic: Denies headache(s), paresthesias or weakness Hematologic/Lymphatic Hematologic/Lymphatic: Denies easy bleeding or easy bruising EXAM Physical Exam Const Vital Signs: 07/12/23 21:41 07/12/23 21:41 07/12/23 21:44 Temperature 97.8 F Temperature Source Oral Pulse Rate 93 96 Respiratory Rate 18 17 Respiratory Effort Normal Non-Labored Blood Pressure 235/135 H Blood Pressure Mean 168 Pulse Ox 98 97 Oxygen Delivery Method Room Air Room Air 07/12/23 22:15 07/12/23 22:00 07/12/23 22:30 Temperature Temperature Source Pulse Rate 86 90 86 Respiratory Rate 16 Respiratory Effort Blood Pressure 234/117 H 247/121 H 215/99 H Blood Pressure Mean 158 132 Pulse Ox 96 Oxygen Delivery Method 07/12/23 22:45 07/12/23 23:15 07/12/23 23:59 Temperature 97.7 F L Temperature Source Pulse Rate 77 63 Respiratory Rate 20 H 12 Respiratory Effort Blood Pressure 221/103 H 182/88 H 182/88 H Blood Pressure Mean 135 115 119 Pulse Ox 95 97 Oxygen Delivery Method 07/12/23 23:30 07/12/23 23:45 07/13/23 00:00 Temperature Temperature Source Pulse Rate 69 62 62 Respiratory Rate 14 7 L 16 Respiratory Effort Blood Pressure 176/88 H 173/101 H 159/98 H Blood Pressure Mean 112 118 115 Pulse Ox 96 Oxygen Delivery Method 07/13/23 00:30 07/13/23 01:00 Temperature Temperature Source Pulse Rate 66 61 Respiratory Rate 15 12 Respiratory Effort Blood Pressure 154/81 H 145/79 H Blood Pressure Mean 101 97 Pulse Ox 96 Oxygen Delivery Method Positive well nourished and well developed General Appearance ED: well developed; Negative for pallor HEENT HEENT Narrative: No tongue or lip swelling no oral lesions no airway edema or compromise Eyes PERRL and EOMs intact bilaterally Neck supple and no JVD Neck Narrative: No nuchal rigidity or meningeal signs noted Chest Wall palpation of chest normal Resp normal respiratory effort Resp Narrative: Breath sounds are diminished throughout with faint expiratory wheeze in the bilateral bases without nasal flaring retractions tachypnea or accessory muscle use Cardio regular rate and regular rhythm Rate: other Other Details: Heart is regular rate and rhythm without murmurs rubs or gallops Radial and carotid pulses are equal and symmetric No carotid bruit noted GI normal to inspection, nondistended, normoactive bowel sounds, non-tender, non- distended and no masses GI Narrative: No voluntary guarding or rigidity or pulsatile mass Auscultation: normoactive bowel sounds Palpation: soft Extremity normal to inspection Extremity Narrative: No asymmetric edema no pitting edema negative Homans' sign bilaterally Neuro oriented x3, CN's II-XII intact bilaterally and no sensory deficits noted Neuro Narrative: Cranial nerves II through XII are grossly intact there are no focal neurologic deficits. No pronator drift no dysmetria no truncal ataxia NIH stroke scale score of 0 Sensorium / Orientation: alert Motor Exam: strength 5/5 throughout Psych mental status grossly normal Skin no rashes or lesions noted General Skin Exam: Negative for jaundice or pallor MDM MDM MDM Narrative Medical decision making narrative: Patient presented to the ER hypertensive and complained of chest pain. General diagnosis is for acute coronary syndrome versus potential DVT/PE versus aortic dissection versus pneumonia versus pneumothorax versus hypertensive emergency versus accelerated hypertension. Secondary to his risk factors coronary artery disease advanced age hypertension and smoking there is high likelihood this is ACS so an EKG was obtained which showed diffuse ST segment depression consistent with ischemia but no obvious STEMI. Patient was given 4 baby aspirin and a nitro series was ordered. After 1 dose of nitro the patient states he cannot take anymore secondary to headache. Therefore patient was given morphine as well as IV Lopressor and oral clonidine. After the morphine was given the patient reported resolution of his discomfort. As the Lopressor and clonidine began working his blood pressure reduced approximately 25% which is the goal reduction in the ER. His initial troponin was elevated at 458 consistent with hypertensive emergency/acute coronary syndrome. The case was discussed with cardiology on-call Dr. Gautam who feels as patient is not having any active chest discomfort that there is no need for heparin drip at this time or emergent heart cath. As the patient's D-dimer is normal concern for dissection versus PE is low and do not feel need for a CTA. The case was then discussed with the hospitalist who agrees to accept the patient for further testing but as his troponin is elevating he does wish him to have Lovenox as well as Plavix and so this was given in the ER. At this time the patient's improvement of his hypertension but with his report of chest pain his multiple risk factors and the fact that his troponin did elevate he will be kept in the hospital for further care History & Record Review Discussion w/independent historian: Patient and Significant other Lab Data Attestation: I reviewed the patient's lab results. Labs: Laboratory Results - last 24 hr 07/12/23 07/13/23 22:10 00:25 WBC 8.9 RBC 5.66 Hgb 16.9 H Hct 47.2 MCV 83.4 MCH 29.9 MCHC 35.8 RDW Std Deviation 40.4 RDW Coeff of Juan José 13.5 Plt Count 192 MPV 9.0 Immature Gran % (Auto) 0.600 Neut % (Auto) 61.7 Lymph % (Auto) 26.6 Benzie % (Auto) 7.1 Eos % (Auto) 2.5 Baso % (Auto) 1.5 H Absolute Neuts (auto) 5.5 Absolute Lymphs (auto) 2.36 Nucleated RBC % 0 PT 13.6 INR 1.0 APTT 30.7 D-Dimer Quant (PE/DVT) 0.42 Sodium 139 Potassium 3.5 Chloride 107 Carbon Dioxide 25.0 Anion Gap 7 BUN 17 Creatinine 1.18 Estim Creat Clear Calc 91.03 Est GFR (MDRD) Af Amer 81 Est GFR (MDRD) Non-Af 67 BUN/Creatinine Ratio 14.4 Glucose 195 H Calcium 8.6 Magnesium 2.1 Troponin I High Sens 458 H* 723 H* Radiography Diagnostic Testing: Clinical Impression(s) from Imaging Studies Chest X-Ray 07/12/23 22:12 IMPRESSION: No radiographic evidence of acute cardiopulmonary disease. Electronically Signed: Kelley More MD at 23:31 EDT , 1 view chest x-ray as interpreted by the emergency medicine physician reveals no acute infiltrate pneumothorax or pleural effusion or widening of the mediastinum Management Discussion w/another healthcare provider: Hospitalist and Music Specialist Critical Care Time Critical Care Time: Yes Critical care time (excluding procedures): Discussing w/Patient &/or Family/Saddle Stitch Operator, Discussing w/Consultants and - (Critical care time of 33 minutes) Discharge Plan Dx/Rx/DC Orders Clinical Impression: NSTEMI, initial episode of care, Tobacco abuse disorder, COPD (chronic obstructive pulmonary disease), Hypertensive emergency Disposition Disposition: Acute Care Hospital [facility] Discharge Date/Time: 07/13/23 02:40
[2023-07-12 22:29] LABS: D-Dimer Quantitative (DVT/PE) 0.42 FEU/ug/m (0.27-0.49)
[2023-07-12 22:40] LABS: Anion Gap 7 (5-15); BUN 17 mg/dL (7-18); BUN/Creat Ratio 14.4 RATIO (10-20); Calcium,Total 8.6 mg/dL (8.5-10.1); Chloride 107 mmol/L (98-107); Creatinine, Serum 1.18 mg/dL (0.70-1.30); EST Glomerular Filtration Rate 67 mL/min (>60); Est Glom Filt Rate - Afr Amer 81 mL/min (>60); Estimated Creatinine Clearance 91.03 ml/min; Glucose 195 mg/dL (74-106); Magnesium 2.1 mg/dL (1.6-2.6); Potassium 3.5 mmol/L (3.5-5.1); Sodium Level 139 mmol/L (136-145); Troponin-I HS 458 pg/mL (3.0-78.0)
[2023-07-12] MEDS: cloNIDine HCl 0.1 MG Tablet 0.100000000000000006 MG PO (22:44)
[2023-07-12] MEDS: Ondansetron 4 MG/2 ML Vial IV (22:44)
[2023-07-12] MEDS: Morphine 4 MG/ML Syringe IV (22:44)
[2023-07-12] MEDS: Metoprolol Tartrate 5 MG/5 ML Vial IV (22:44)
[2023-07-12 23:14] LABS: Prothrombin Time (Protime)PT. 13.6 SECONDS (11.7-14.9)
[2023-07-12 23:15] LABS: Partial Thromboplast Time 30.7 Seconds (24.1-36.2)
--- OUTSIDE RECORDS SUMMARY | 2023-07-12 23:35 | XMS RPT_ITS | CCD ---
Author Name Unknown Address [address] [place] [address] Organization [facility] Care Team Providers Care Monument Letterer Name Role Phone ELIGIO SEPULVEDA Unavailable Unavailable ELIGIO SEPULVEDA Unavailable Unavailable NEHEMIAH JACOB Unavailable Unavailable ELIGIO SEPULVEDA Unavailable Unavailable ELIGIO SEPULVEDA Unavailable Unavailable Nehemiah Jacob MD Primary Care Provider Nehemiah Jacob MD Primary Care Provider Nehemiah Jcaob MD Primary Care Provider SCOTT LOTT Referring Unavailable NEHEMIAH JACOB Primary Care Unavailab le KANAA'N V, HERMELINDO Admitting Unavailable DUDLEY BRITT Attending Unavailable NEHEMIAH JACOB Primary Care Unavailab le PODLOGMARCELLA SMALLWOOD Referring Unavailable NEHEMIAH JACOB Primary Care Unavailab MARY Jimenez Attending Unavailable PODLOGARMARCELLA Referring Unavailable NEHEMIAH JACOB Primary Care Unavailab le NEHEMIAH JACOB Primary Care Unavailab le PODLOGARMARCELLA Referring Unavailable NEHEMIAH JACOB Primary Care Unavailab le PODLOGAR, MARCELLA Referring Unavailable NEHEMIAH JACOB Primary Care Unavailab le PODLOGARMARCELLA Attending Unavailable PODLOGARMARCELLA Attending Unavailable NEHEMIAH JACOB Primary Care Unavailab le NEHEMIAH JACOB Primary Care Unavailab le SCOTT LOTT Attending Unavailable NEHEMIAH JACOB Primary Care Unavailab le NEHEMIAH JACOB Referring Unavailab le NEHEMIAH JACOB Attending Unavailab le PODLOGAR, MARCELLA Referring Unavailable NEHEMIAH JACOB Primary Care Unavailab le NEHEMIAH JACOB Primary Care Unavailab le SCOTT LOTT Referring Unavailable PODLOGAR, MARCELLA Referring Unavailable NEHEMIAH JACOB Primary Care UnavailSCOTT Chou Attending Unavailable PODLOGAR, MARCELLA Attending Unavailable NEHEMIAH JACOB Primary Care Unavailab HoltLOGMARCELLA SMALLWOOD Referring Unavailable NEHEMIAH JACOB Primary Care Unavailab NEHEMIAH Valencia Primary Care Unavailab kat SAAVEDRA MARY ANN Referring Unavailable Allergies Allergy Classification Reported Allergen(s) Allergy Type Date of Onset Reaction(s) Facility (20 sources) varenicline; Translations: [VARENICLINE] Drug Allergy 05-16-2016 [facility] Medications Current Medications Medication Drug Class(es) Dates Sig (Normalized) Sig (Original) amLODIPine 10 mg oral tablet (20 sources) Dihydropyridine Calcium Channel Pasquale Start: 03-09-2022 End: 08-03-2022 take 1 tablet by mouth once daily amLODIPine (NORVASC) 10 mg tablet Indications: Hypertension, essential Take 1 tablet by mouth once daily. 30 tablet 0 05/05/2022 08/03/2022 Active Completed/Discontinued Medications Medication Drug Class(es) Dates Sig (Normalized) Sig (Original) atorvastatin 80 mg oral tablet (20 sources) HMG-CoA Reductase Inhibitor Start: 02-04-2022 take 0.5 tablet by mouth once daily at bedtime for hyperlipidemia atorvastatin (LIPITOR) 80 mg tablet Indications: 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, unspecified vessel or lesion type (HCC) Take 0.5 tablets by mouth daily at bedtime. For cholesterol. 15 tablet 5 02/04/2022 Active Problems Active Problems Problem Classification Problem Date Documented Da te Episodic/Chronic Chronic obstructive pulmonary disease and bronchiectasis (20 sources) Chronic obstructive lung disease; Translations: [Chronic obstructive pulmonary disease, unspecified] 05-16-2016 Chronic Conduction disorders (20 sources) Right bundle branch block; Translations: [Unspecified right bundle-branch block] 05-16-2016 Chronic Coronary atherosclerosis and other heart disease (20 sources) Coronary arteriosclerosis; Translations: [Atherosclerotic heart disease of lower brule coronary artery without angina pectoris] Onset: 05-16-2016 05-16-2016 Chronic Deficiency and other anemia (1 source) Increased hemoglobin; Translations: [Other hemoglobinopathies] Chronic Deficiency and other anemia (1 source) Other hemoglobinopathies; Translations: [Elevated hemoglobin (HCC)] Onset: 02-02-2022 Chronic Diabetes mellitus without complication (2 sources) Hyperglycemia; Translations: [Impaired fasting glucose] Onset: 03-25-2022 Episodic Essential hypertension (20 sources) Essential (primary) hypertension; Translations: [Hypertensive disorder] Onset: 05-16-2017 05-16-2016 Chronic Nonspecific chest pain (4 sources) Chest pain; Translations: [Chest pain, unspecified] Onset: 03-23-2022 Episodic Other circulatory disease (1 source) History of angioplasty; Translations: [Peripheral vascular angioplasty status with implants and grafts] Chronic Other lower respiratory disease (6 sources) Dyspnea; Translations: [Shortness of breath] Episodic Other lower respiratory disease (2 sources) Shortness of breath; Translations: [SOB (shortness of breath)] Onset: 03-23-2022 Episodic Other screening for suspected conditions (not mental disorders or infectious disease) (2 sources) Patient encounter status; Translations: [Encounter for screening for malignant neoplasm of respiratory organs] Episodic Residual codes; unclassified (20 sources) Tobacco use and exposure - finding; Translations: [Tobacco use] 05-16-2016 Episodic Residual codes; unclassified (20 sources) Noncompliance with treatment; Translations: [Patient's noncompliance with other medical treatment and regimen] 06-29-2018 Episodic Residual codes; unclassified (1 source) Tobacco user; Translations: [Tobacco use] Episodic Substance-related disorders (1 source) Cigarette smoker ; Translations: [Nicotine dependence, cigarettes, uncomplicated] Chronic Unclassified (1 source) Unknown / UNK(Unknown) Onset: 05-16-2016 Past or Other Problems Problem Classification Problem Date Documented Da te Episodic/Chronic Cardiac dysrhythmias (2 sources) Palpitations; Translations: [Palpitations] Onset: 02-02-2022 Episodic Results Test Name Value Interpretation Reference Range Facil ity Vital Signs Date Time Vital Sign Value Performing Clinician Maikol mattson 04-05-2022 15:44-0500 Diastolic blood pressure 68 mm[Hg] Nehemiah Jacob MD Work Phone: [facility] 04-05-2022 15:44-0500 Systolic blood pressure 162 mm[Hg] Nehemiah Jacob MD Work Phone: [facility] 04-05-2022 15:14-0500 Body weight 108.14 kg Nehemiah Jacob MD Work Phone: [facility] 04-05-2022 15:14-0500 Heart rate 68 /min Nehemiah Jacob MD Work Phone: [facility] 04-05-2022 15:14-0500 Respiratory rate 18 /min Nehemiah Jacob MD Work Phone: [facility] 04-05-2022 15:14-0500 SaO2% (BldA) [Mass fraction] 96 % Nehemiah Jacob MD Work Phone: [facility] 03-23-2022 13:57-0500 Body height 190.5 cm Scott Lott MD Work Phone: [facility] 03-23-2022 13:57-0500 Body weight 109.32 kg Scott Lott MD Work Phone: [facility] 03-23-2022 13:57-0500 Diastolic blood pressure 76 mm[Hg] Scott Lott MD Work Phone: [facility] 03-23-2022 13:57-0500 Heart rate 66 /min Scott Lott MD Work Phone: [facility] 03-23-2022 13:57-0500 SaO2% (BldA) [Mass fraction] 99 % Scott Lott MD Work Phone: [facility] 03-23-2022 13:57-0500 Systolic blood pressure 177 mm[Hg] Scott Lott MD Work Phone: [facility] 03-09-2022 17:13-0500 Diastolic blood pressure 87 mm[Hg] Marcella Podlogar SPOOL FIXER.PRODUCTION CLERK Work Phone: [facility] 03-09-2022 17:13-0500 Systolic blood pressure 200 mm[Hg] Marcella Podlogar SPOOL FIXER.PRODUCTION CLERK Work Phone: [facility] 03-09-2022 16:43-0500 Body weight 111.13 kg Marcella Podlogar SPOOL FIXER.PRODUCTION CLERK Work Phone: [facility] 03-09-2022 16:43-0500 Heart rate 71 /min Marcella Podlogar SPOOL FIXER.PRODUCTION CLERK Work Phone: [facility] 03-09-2022 16:43-0500 SaO2% (BldA) [Mass fraction] 99 % Marcella Podlogar SPOOL FIXER.PRODUCTION CLERK Work Phone: [facility] 02-17-2022 08:31-0400 Body height 190.5 cm Mary Saavedra MD Work Phone: [facility] 02-17-2022 08:31-0400 Body weight 104.78 kg Mary Saavedra MD Work Phone: [facility] 02-17-2022 08:31-0400 Heart rate 65 /min Mary Saavedra MD Work Phone: [facility] 02-17-2022 08:31-0400 Respiratory rate 16 /min Mary Saavedra MD Work Phone: [facility] 02-17-2022 08:31-0400 SaO2% (BldA) [Mass fraction] 100 % Mary Saavedra MD Work Phone: [facility] 02-02-2022 08:24-0400 Diastolic blood pressure 98 mm[Hg] Marcella Podlogar SPOOL FIXER.PRODUCTION CLERK Work Phone: [facility] 02-02-2022 08:24-0400 Heart rate 62 /min Marcella Podlogar SPOOL FIXER.PRODUCTION CLERK Work Phone: [facility] 02-02-2022 08:24-0400 Systolic blood pressure 213 mm[Hg] Marcella Podlogar SPOOL FIXER.PRODUCTION CLERK Work Phone: [facility] 02-02-2022 07:47-0400 Body weight 108.95 kg Marcella Podlogar SPOOL FIXER.PRODUCTION CLERK Work Phone: [facility] 02-02-2022 07:47-0400 Respiratory rate 18 /min Marcella Podlogar SPOOL FIXER.PRODUCTION CLERK Work Phone: [facility] 02-02-2022 07:47-0400 SaO2% (BldA) [Mass fraction] 100 % Marcella Podlogar SPOOL FIXER.PRODUCTION CLERK Work Phone: [facility] 01-19-2022 08:56-0400 Diastolic blood pressure 92 mm[Hg] Marcella Podlogar SPOOL FIXER.PRODUCTION CLERK Work Phone: [facility] 01-19-2022 08:56-0400 Heart rate 58 /min Marcella Podlogar SPOOL FIXER.PRODUCTION CLERK Work Phone: [facility] 01-19-2022 08:56-0400 Systolic blood pressure 166 mm[Hg] Marcella Podlogar SPOOL FIXER.PRODUCTION CLERK Work Phone: [facility] 01-19-2022 08:04-0400 Body weight 109.32 kg Marcella Podlogar SPOOL FIXER.PRODUCTION CLERK Work Phone: [facility] 01-19-2022 08:04-0400 Respiratory rate 18 /min Marcella Podlogar SPOOL FIXER.PRODUCTION CLERK Work Phone: [facility] 01-19-2022 08:04-0400 SaO2% (BldA) [Mass fraction] 99 % Marcella Podlogar SPOOL FIXER.PRODUCTION CLERK Work Phone: [facility] Encounters Encounter Date Encounter Type Care Provider Facility Start: 05-30-2022 Refill Scott Lott MD Work Phone: Cardiology Procedures Date Procedure Procedure Detail Performing Clinician Start: 05-18-2022 Follow-up visit Follow Up SCOTT LOTT Start: 03-30-2022 Echo tthrc r-t 2d w/wom-mode compl spec&colr d Scott Lott MD Work Phone: Start: 02-17-2022 Nitric oxide gas determination Mary Saavedra MD Work Phone: Start: 02-02-2022 Ecg routine ecg w/le ast 12 lds w/i&r [facility] Provider Start: 05-16-2017 Adult depression screening assessment Gunner Mcbride MD Work Phone: History of placement of stent for coronary artery disease History of coronary artery stent placement Scott Lott MD Work Phone: Plan of Treatment Date Care Activity Detail Author Start: 02-02-2027 LIPID SCREEN LIPID SCREEN [facility] Start: 03-31-2025 DIABETES SCREEN DIABETES SCREEN [facility] Start: 03-25-2025 DIABETES SCREEN DIABETES SCREEN [facility] Start: 02-02-2025 DIABETES SCREEN DIABETES SCREEN [facility] Start: 04-05-2023 ANNUAL PCP TEAM CHRONIC DISEASE VISIT ANNUAL PCP TEAM CHRONIC DISEASE VISIT [facility] Start: 03-09-2023 ANNUAL PCP TEAM CHRONIC DISEASE VISIT ANNUAL PCP TEAM CHRONIC DISEASE VISIT [facility] Start: 02-02-2023 ANNUAL PCP TEAM CHRONIC DISEASE VISIT ANNUAL PCP TEAM CHRONIC DISEASE VISIT [facility] Start: 02-02-2023 Hepatitis B surface antibody level LDL CHOLESTEROL [facility] Start: 01-19-2023 ANNUAL PCP TEAM CHRONIC DISEASE VISIT ANNUAL PCP TEAM CHRONIC DISEASE VISIT [facility] Start: 05-01-2022 DEPRESSION ASSESSMENT DEPRESSION ASSESSMENT [facility] Start: 04-19-2022 End: 06-19-2022 Comprehensive metabolic 2000 panel - Serum or Plasma COMP METABOLIC PANEL Lab Routine Hypertension, essential Expected: 04/19/2022, Expires: 06/19/2022 [facility] Work Phone: Immunizations Immunization Date Immunization Notes Care Provider Samuel peña 12-28-2004 tetanus and diphther ia toxoids, adsorbed, preservative free, for adult use (2 Lf of tetanus toxoid and 2 Lf of diphtheria toxoid) Gunner Mcbride MD Work Phone: [facility] Work Phone: Payers Date Payer Category Payer Unknown [id number] 2021 Unknown [employer]THEM BLUE CARD PPO OOS [id number] 2021-Present [phone] [address] [place] [address] PPO [id number] Social History Date Type Detail Facility Start: 12-03-1977 End: 02-02-2022 Tobacco smoking status NHIS Smokes tobacco daily [facility] Work Phone: Start: 12-03-1977 History of tobacco use Cigarette Smo ker [facility] Work Phone: Start: 12-03-2018 End: 02-02-2022 Cigarettes smoked current (pack per day) - Reported 1 [facility] Start: 12-03-2018 End: 02-02-2022 Tobacco use and exposure Smokeless tobacco non-user [facility] Work Phone: Start: 02-25-2021 End: 05-18-2022 Alcohol intake Current non-drinker of alcohol (finding) [facility] Start: 12-03-2018 End: 02-02-2022 Tobacco Comment Relapsed on/after only a few weeks Chantix. TO 12/03/18. [facility] Start: 1960 Sex Assigned At Not on file [facility] Start: 01-23-2022 End: 02-02-2022 Exposure to SARS-CoV-2 (event) Unable to assess [facility] Work Phone: Start: 03-13-2022 End: 03-31-2022 Exposure to SARS-CoV-2 (event) Not sure [facility] Clinical Notes 01-17-2022 to 05-30-2022 Telephone Encounter - Radha Winkler LPN - 05/30/2022 12:36 PM ESTTelephone Encounter - Radha Winkler LPN - 05/06/2022 7:11 AM Nikki Jacob MD - 04/05/2022 3:18 PM EST Note Date & Type Note Facility 05-30-2022 Miscellaneous Notes Patient's request for medication is as follows: Requested Prescriptions Pending Prescriptions Disp Refills isosorbide mononitrate ER (IMDUR) 30 mg 24 hr tablet [Pharmacy Med Name: ISOSORBIDE MONONIT ER 30 MG TB] 90 tablet 3 Sig: take 1 tablet by mouth once daily Last seen 05/18/2022. Prescription(s) as above. Please process accordingly. Radha Winkler LPN documented in this encounter [facility] 05-18-2022 Note HNO ID: [id number] Author: Scott Lott MD Service: ? Author Type: Physician Type: Progress Notes Filed: 05/18/2022 2:41 PM Note Text: Chief Complaint: Patient presents with: Follow Up: Coronary artery disease involving lower brule coronary artery of lower brule heart with unstable angina pectoris (HCC History of Present Illness: Gonzales Gustafson is a 61 year old male with history of essential hypertension, moderate coronary artery disease on heart catheterization in 2012, smoker was referred by his primary care physician for further evaluation of his symptoms of chest pain and shortness of breath. Patient has been having intermittent episodes of chest pain and shortness of breath. He says he has chest pain when he is last day at work. 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 He says he feels chest pain if he has to lift heavy loads and over exert himself. He says he takes sublingual nitroglycerin and the pain goes away. He said this happens at least once or twice a week. He also has associated shortness of breath on exertion. Denies any palpitations. Gets lightheaded occasionally fortunately when he comes down from the fall that he works out. He has not passed out. Denies any orthopnea PND or leg edema but does feel cold in his legs occasionally. Denies any claudication type symptoms. Patient underwent left heart catheterization for unstable angina. He was found to have LAD and RCA stenosis both of which were stented. He did not stay overnight for observation per the interventionalists recommendation. He has been unable to do cardiac rehab as his insurance would not pay for it. Patient says he feels somewhat better after the procedure. Chest pains and shortness of breath have subsided. Does not get lightheaded anymore. He is back to his usual baseline self. The only unresolved thing he says is his blood pressure. PAST MEDICAL HISTORY Diagnosis Date Coronary artery disease Seeing Tre previously Hypertension Non-compliant patient Right bundle branch block Tobacco use PAST SURGICAL HISTORY Procedure Laterality Date HEART CATHETERIZATION 2013 has had x3 FAMILY HISTORY Problem Relation Age of Onset Cancer Mother 52 stomach Hypertension Father 83 Diabetes Father Hypertension Brother 62 COPD Brother Coronary Artery Disease Brother Coronary Artery Disease Brother Hypertension Brother Social History Tobacco Use Smoking status: Every Day Packs/day: 1.00 Years: 38.00 Pack years: 38.00 Types: Cigarettes Start date: 12/03/1977 Smokeless tobacco: Never Tobacco comments: Relapsed on/after only a few weeks Chantix. TO 12/03/18. Substance Use Topics Alcohol use: No Drug use: No Current Outpatient Medications Medication Sig amLODIPine (NORVASC) 10 mg tablet Take 1 tablet by mouth once daily. hydroCHLOROthiazide (HYDRODIURIL, ESIDRIX) 50 mg tablet Take 1 tablet by mouth once daily. isosorbide mononitrate ER (IMDUR) 30 mg 24 hr tablet Take 1 tablet by mouth once daily. tiotropium bromide (SPIRIVA RESPIMAT) 2.5 mcg/actuation inhaler Inhale 2 Puffs as instructed once daily. atorvastatin (LIPITOR) 80 mg tablet Take 0.5 tablets by mouth daily at bedtime. For cholesterol. losartan (COZAAR) 100 mg tablet Take 1 tablet by mouth once daily. aspirin 81 mg chewable tablet Take 1 tablet by mouth once daily. multivitamin tablet Take 1 tablet by mouth once daily. carvedilol (COREG) 25 mg tablet Take 1 tablet by mouth twice daily. ticagrelor (BRILINTA) 90 mg tablet Take 1 tablet by mouth once daily. nitroglycerin sublingual (NITROQUICK) 0.4 mg SL tablet Dissolve 1 tablet under the tongue as needed for chest pain. FOR CHEST PAIN. IF NO RELIEF CALL 911 Current Facility-Administered Medications Medication Dose Route Frequency perflutren lipid microspheres 1.3 mL in NaCl (PF) 0.9% 10 mL injection (DEFINITY) INTRAVENOUS DIRECTED PRN sodium chloride 0.9 % (flush) 10 mL (BD POSIFLUSH) 10 mL INTRAVENOUS DIRECTED PRN ALLERGIES Allergen Reactions Chantix [Vareniclin* Rash Review of Systems: General: No weight loss, malaise, fevers, chills, or night sweats HEENT: Negative for epistaxis Neck: Negative for pain and significant neck swelling Respiratory: Negative for cough, shortness of breath at rest or on exertion, wheezing Gastrointestinal: Negative history of abdominal pain, nausea, vomiting, constipation, diarrhea, melena, or hematochezia Urinary: Negative history of dysuria, hematuria, or frequency Peripheral vascular: No claudication Musculoskeletal: Negative for joint aches/pain, neck pain, or back pain Neurologic: Negative history of dizziness/lightheadedness, vertigo, numbness/tingling of hands or feet Hematologic: Negative for easy bruising or easy bleeding. Endocrine: Negative history of obesity Skin: Negative history of rash and itching Other: The rest of the review of systems is unremarkable and (more content not included)... [facility] 05-06-2022 Miscellaneous Notes Patient's request for medication is as follows: Requested Prescriptions Pending Prescriptions Disp Refills carvedilol (COREG) 12.5 mg tablet [Pharmacy Med Name: CARVEDILOL 12.5 MG TABLET] 180 tablet 3 Sig: take 1 tablet by mouth twice a day Last seen 03/23/2022. Follow up scheduled for 06/15/2022. Prescription(s) as above. Please process accordingly. Radha Winkler LPN documented in this encounter [facility] 05-05-2022 Miscellaneous Notes Patient has been identified by name and date of : Yes Last office visit in this department: 04/05/2022 Labs-03/31/22 NOV-none med filled 03/09/22 RX INSTRUCTIONS: Patient aware RX will be sent to pharmacy. No need to notify patient. Patient phones requesting refills as follows: Requested Prescriptions Pending Prescriptions Disp Refills amLODIPine (NORVASC) 10 mg tablet 30 tablet 0 Sig: Take 1 tablet by mouth once daily. Please review and advise. Kiersten Ross documented in this encounter [facility] 04-18-2022 Miscellaneous Notes Pt notified new letter faxed to Lizabeth. Mercedes Lopes RN Spoke with pt. 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 He reports he does not have to climb or lift if he chooses not to. He reports if he returns to work the will do no lifting or climbing. Pt reports he feels well and feels he can return to work. Mercedes Lopes RN Pt notified RTW letter faxed as requested. Pt reports his insurance will not cover Cardiac Rehab. Mercedes Lopes RN Letter faxed to [employer]. Fax confirmation received. Mercedes Lopes RN Have generated return to work letter with restrictions. Once he finishes a month of cardiac rehab and if theres no problems then I can give him a letter without restrictions. Scott Lott MD Patient's spouse Liz called [facility] to provide the fax number for his work [employer]. Fax number is [phone]. Kiersten Tyson LPN Pt calls to request he be allowed to return to work 04/18/22. He will call back with his employer's fax number. Mercedes Lopes RN Mrs Gustafson called and asked if Dr Lott would write a return to work letter after having heart cath. 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 He is not complaining of any symptoms. Mrs Gustafson will let us know where to fax letter to. Thank you, Anastasia Garcia LPN documented in this encounter [facility] 04-06-2022 Miscellaneous Notes Scheduled to start Cardiac Rehab 04/11/22. Patient to check ins coverage prior documented in this encounter [facility] 04-05-2022 Note HNO ID: [id number] Author: Nehemiah Jacob MD Service: ? Author Type: Physician Type: Progress Notes Filed: 04/05/2022 4:04 PM Note Text: Chief Complaint Patient presents with: Hospital F/U Transition Of Care HPI Gonzales Gustafson is a 61 year old male who presents here today for Hospital Discharge Follow up. Patient was admitted to [facility] on 03/31 for scheduled left heart catheterization. Hospital discharge summary and report do not appear to be complete at the time of this visit. States that he had 3 stents placed. Left AMA because he did not want to stay the night in the hospital. They recommended he follow up with cardiac rehab and wanted to go to [place]. Waiting to hear from them still. Since he left AMA he has had continued KWAN on exertion which is unchanged from prior to his hospitalization. Intermittent chest pressure has improved since he was discharged from the hospital, but still gets occasional episodes. Taking ASA, statin, beta pasquale, ARB, and Imdur. Has nitro at home, but has not needed it. Admits to mild LE edema. Denies palpitations. Not scheduled with cardiology until 06/15. Was initially scheduled tomorrow, but was appointment was cancelled. BP elevated at home yesterday to 201 systolic. Cannot remember diastolic. Today has improved to 162/72. POPULATION HEALTH NAVIGATION OUTREACH Action/FYI Spoke with pt. Pt scheduled for hospital follow up with PCP on 04/05/22. TCM eligible thru 04/14/22 Pt discharged from [facility] on 03/31/22. Admitted for: unstable angina Pt identified by name and : YES, via phone Outreach Outcome/Action Spoke to patient or caregiver: Patient scheduled Did you use a PCP flex slot to schedule this appointment? No Reason for Outreach [facility] Payer: Payor: FLASH / Plan: BLUE CARD PPO OOS / Product Type: PPO / Care Gap Reviewed:: Follow-up appointment Reminder: Reminder note to check Health Maintenance for items below Health Maintenance items due: COVID-19 VACCINE(1) Never done PNEUMOCOCCAL(1 - PCV) Never done HIV SCREENING Never done BP CONTROLLED (<130/80) Never done ALPHA-1 ANTITRYPSIN DEFICIENCY SCREENING Never done DTAP,TDAP,TD(1 - Tdap) due on 12/29/2004 COLORECTAL CANCER SCREENING Never done LUNG CANCER SCREENING Never done SHINGRIX VACCINE(1 of 2) Never done PROSTATE CANCER SCREENING DISCUSSION Never done DEPRESSION ASSESSMENT Never done INFLUENZA(1) due on 12/30/2021 Past medical history, appointments, medications, allergies reviewed. Previous Medical History PAST MEDICAL HISTORY Diagnosis Date Coronary artery disease Seeing Tre previously Hypertension Non-compliant patient Right bundle branch block Tobacco use Previous Surgical History PAST SURGICAL HISTORY Procedure Laterality Date HEART CATHETERIZATION 2013 has had x3 Family History FAMILY HISTORY Problem Relation Age of Onset Cancer Mother 52 stomach Hypertension Father 83 Diabetes Father Hypertension Brother 62 COPD Brother Coronary Artery Disease Brother Coronary Artery Disease Brother Hypertension Brother Patient Allergies ALLERGIES Allergen Reactions Chantix [Vareniclin* Rash Current Medications Current Outpatient Medications on File Prior to Visit Medication Sig carvedilol (COREG) 12.5 mg tablet Take 1 tablet by mouth twice daily. isosorbide mononitrate ER (IMDUR) 30 mg 24 hr tablet Take 1 tablet by mouth once daily. nitroglycerin sublingual (NITROQUICK) 0.4 mg SL tablet Dissolve 1 tablet under the tongue as needed for chest pain. FOR CHEST PAIN. IF NO RELIEF CALL 911 amLODIPine (NORVASC) 10 mg tablet Take 1 tablet by mouth once daily. hydroCHLOROthiazide (HYDRODIURIL, ESIDRIX) 12.5 mg capsule Take 1 capsule by mouth once daily. tiotropium bromide (SPIRIVA RESPIMAT) 2.5 mcg/actuation inhaler Inhale 2 Puffs as instructed once daily. atorvastatin (LIPITOR) 80 mg tablet Take 0.5 tablets by mouth daily at bedtime. For cholesterol. losartan (COZAAR) 100 mg tablet Take 1 tablet by mouth once daily. aspirin 81 mg chewable tablet Take 1 tablet by mouth once daily. multivitamin tablet Take 1 tablet by mouth once daily. Current Facility-Administered Medications on File Prior to Visit Medication perflutren lipid microspheres 1.3 mL in NaCl (PF) 0.9% 10 mL injection (DEFINITY) sodium chloride 0.9 % (flush) 10 mL (BD POSIFLUSH) Social History Social History Tobacco Use Smoking status: Every Day Packs/day: 1.00 Years: 38.00 Pack years: 38.00 Types: Cigarettes Start date: 12/03/1977 Smokeless tobacco: Never Tobacco comments: Relapsed on/after only a few weeks Chantix. TO 12/03/18. Substance Use Topics Alcohol use: No Drug use: No Review of Symptoms REVIEW OF SYSTEMS GENERAL: No weight loss, malaise or fevers RESPIRATORY: See HPI CARDIOVASCULAR: See HPI GI: No nausea, vomiting, or diarrhea SKIN: Negative for lesions, onel (more content not included)... [facility] 04-05-2022 History of Present illness Narrative Chief Complaint Patient presents with: Hospital F/U Transition Of Care HPI Gonzales Gustafson is a 61 year old male who presents here today for Hospital Discharge Follow up. Patient was admitted to [facility] on 03/31 for scheduled left heart catheterization. Hospital discharge summary and report do not appear to be complete at the time of this visit. States that he had 3 stents placed. Left AMA because he did not want to stay the night in the hospital. They recommended he follow up with cardiac rehab and wanted to go to [place]. Waiting to hear from them still. Since he left AMA he has had continued KWAN on exertion which is unchanged from prior to his hospitalization. Intermittent chest pressure has improved since he was discharged from the hospital, but still gets occasional episodes. Taking ASA, statin, beta pasquale, ARB, and Imdur. Has nitro at home, but has not needed it. Admits to mild LE edema. Denies palpitations. Not scheduled with cardiology until 06/15. Was initially scheduled tomorrow, but was appointment was cancelled. BP elevated at home yesterday to 201 systolic. Cannot remember diastolic. Today has improved to 162/72. POPULATION HEALTH NAVIGATION OUTREACH Action/FYI Spoke with pt. Pt scheduled for hospital follow up with PCP on 04/05/22. TCM eligible thru 04/14/22 Pt discharged from [facility] on 03/31/22. Admitted for: unstable angina Pt identified by name and : YES, via phone Outreach Outcome/Action Spoke to patient or caregiver: Patient scheduled Did you use a PCP flex slot to schedule this appointment? No Reason for Outreach [facility] Payer: Payor: FLASH / Plan: BLUE CARD PPO OOS / Product Type: PPO / Care Gap Reviewed:: Follow-up appointment Reminder: Reminder note to check Health Maintenance for items below Health Maintenance items due: COVID-19 VACCINE(1) Never done PNEUMOCOCCAL(1 - PCV) Never done HIV SCREENING Never done BP CONTROLLED (<130/80) Never done ALPHA-1 ANTITRYPSIN DEFICIENCY SCREENING Never done DTAP,TDAP,TD(1 - Tdap) due on 12/29/2004 COLORECTAL CANCER SCREENING Never done LUNG CANCER SCREENING Never done SHINGRIX VACCINE(1 of 2) Never done PROSTATE CANCER SCREENING DISCUSSION Never done DEPRESSION ASSESSMENT Never done INFLUENZA(1) due on 12/30/2021 Past medical history, appointments, medications, allergies reviewed. Previous Medical History PAST MEDICAL HISTORY Diagnosis Date Coronary artery disease Seeing Tre previously Hypertension Non-compliant patient Right bundle branch block Tobacco use Previous Surgical History PAST SURGICAL HISTORY Procedure Laterality Date HEART CATHETERIZATION 2013 has had x3 Family History FAMILY HISTORY Problem Relation Age of Onset Cancer Mother 52 stomach Hypertension Father 83 Diabetes Father Hypertension Brother 62 COPD Brother Coronary Artery Disease Brother Coronary Artery Disease Brother Hypertension Brother Patient Allergies ALLERGIES Allergen Reactions Chantix [Vareniclin* Rash Current Medications Current Outpatient Medications on File Prior to Visit Medication Sig carvedilol (COREG) 12.5 mg tablet Take 1 tablet by mouth twice daily. isosorbide mononitrate ER (IMDUR) 30 mg 24 hr tablet Take 1 tablet by mouth once daily. nitroglycerin sublingual (NITROQUICK) 0.4 mg SL tablet Dissolve 1 tablet under the tongue as needed for chest pain. FOR CHEST PAIN. IF NO RELIEF CALL 911 amLODIPine (NORVASC) 10 mg tablet Take 1 tablet by mouth once daily. hydroCHLOROthiazide (HYDRODIURIL, ESIDRIX) 12.5 mg capsule Take 1 capsule by mouth once daily. tiotropium bromide (SPIRIVA RESPIMAT) 2.5 mcg/actuation inhaler Inhale 2 Puffs as instructed once daily. atorvastatin (LIPITOR) 80 mg tablet Take 0.5 tablets by mouth daily at bedtime. For cholesterol. losartan (COZAAR) 100 mg tablet Take 1 tablet by mouth once daily. aspirin 81 mg chewable tablet Take 1 tablet by mouth once daily. multivitamin tablet Take 1 tablet by mouth once daily. Current Facility-Administered Medications on File Prior to Visit Medication perflutren lipid microspheres 1.3 mL in NaCl (PF) 0.9% 10 mL injection (DEFINITY) sodium chloride 0.9 % (flush) 10 mL (BD POSIFLUSH) Social History Social History Tobacco Use Smoking status: Every Day Packs/day: 1.00 Years: 38.00 Pack years: 38.00 Types: Cigarettes Start date: 12/03/1977 Smokeless tobacco: Never Tobacco comments: Relapsed on/after only a few weeks Chantix. TO 12/03/18. Substance Use Topics Alcohol use: No Drug use: No Review of Symptoms REVIEW OF SYSTEMS GENERAL: No weight loss, malaise or fevers RESPIRATORY: See HPI CARDIOVASCULAR: See HPI GI: No nausea, vomiting, or diarrhea SKIN: Negative for lesions, rash, and itching EXAM: BP 162/72 Pulse 68 Resp 18 Wt 108.1 kg (238 lb 6.4 oz) SpO2 96% BMI 29.80 kg/m General Appearance: Well appearing, alert, in no acute distress, well-hydrated, well nourished. Skin: Skin color, texture, turgor normal, no suspicious rashes or lesions. Lungs: Lungs clear to auscultation. No wheezing, rhonchi, rales.. Heart: RRR without murmur, gallop, or rubs. No ectopy. Abdomen: Normal abdominal exam, Abdomen soft, non-tender. Bowel sounds normal. No masses, organomegaly. Extremities: No deformities, edema, skin discoloration, clubbing or cyanosis. Good capillary refill. Health Maintenance List COVID-19 VACCINE(1) Never done PNEUMOCOCCAL(1 - PCV) Never done HIV SCREENING Never done BP CONTROLLED (<130/80) Never done ALPHA-1 ANTITRYPSIN DEFICIENCY SCREENING Never done DTAP,TDAP,TD(1 - Tdap) due on 12/29/2004 COLORECTAL CANCER SCREENING Never done LUNG CANCER SCREENING Never done SHINGRIX VACCINE(1 of 2) Never done PROSTATE CANCER SCREENING DISCUSSION Never done DEPRESSION ASSESSMENT Never done INFLUENZA(1) due on 12/30/2021 LDL CHOLESTEROL due on 02/02/2023 ANNUAL PCP TEAM CHRONIC DISEASE VISIT due on 03/09/2023 DIABETES SCREEN due on 03/31/2025 LIPID SCREEN due on 02/02/2027 SPIROMETRY Completed HEPATITIS C SCREENING Completed Data reviewed Component Latest Ref Rng & Units 02/02/2022 03/25/2022 03/31/2022 WBC 3.70 - 11.00 k/uL 8.73 8.64 RBC 4.20 - 6.00 m/uL 5.80 4.97 Hemoglobin 13.0 - 17.0 g/dL 17.4 (H) 15.0 Hematocrit 39.0 - 51.0 % 50.7 41.9 MCV 80.0 - 100.0 fL 87.4 84.3 MCH 26.0 - 34.0 pg 30.0 30.2 MCHC 30.5 - 36.0 g/dL 34.3 35.8 RDW-CV 11.5 - 15.0 % 12.9 13.2 Platelet Count 150 - 400 k/uL 228 227 MPV 9.0 - 12.7 fL 10.0 8.9 (L) Neut% % 69.9 65.8 Abs Neut (ANC) 1.45 - 7.50 k/uL 6.10 5.69 Lymph% % 21.9 21.2 Abs Lymph 1.00 - 4.00 k/uL 1.91 1.83 Dickens% % 6.3 10.0 Abs Dickens <0.87 k/uL 0.55 0.86 Eosin% % 0.6 1.5 Abs Eosin <0.46 k/uL 0.05 0.13 Baso% % 1.0 1.0 Abs Baso <0.11 k/uL 0.09 0.09 Immature Gran % % 0.3 0.5 IMMATURE GRANS (ABS) <0.10 k/uL 0.03 0.04 NRBC /100 WBC 0.0 0.0 Absolute nRBC <0.01 k/uL <0.01 <0.01 DTYPE Auto Auto Protein, Total 6.3 - 8.0 g/dL 7.7 Albumin 3.9 - 4.9 g/dL 4.5 Calcium 8.5 - 10.2 mg/dL 9.8 9.2 Bilirubin, Total 0.2 - 1.3 mg/dL 0.7 Alkaline Phosphatase 38 - 113 U/L 106 AST 14 - 40 U/L 19 ALT 10 - 54 U/L 22 Glucose 74 - 99 mg/dL 114 (H) 105 (H) BUN 9 - 24 mg/dL 19 17 Creatinine 0.73 - 1.22 mg/dL 1.09 0.98 Sodium 136 - 144 mmol/L 139 136 Potassium 3.7 - 5.1 mmol/L 4.8 4.3 Chloride 97 - 105 mmol/L 102 102 CO2 22 - 30 mmol/L 25 26 Anion Gap 9 - 18 mmol/L 12 8 (L) eGFR >=60 mL/min/1.73m 78 89 Hemoglobin A1C 4.3 - 5.6 % 5.2 Estimated Average Glucose mg/dL 103 NT Pro BNP <125 pg/mL 526 (H) ASSESSMENT/PLAN: 1. 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, unspecified vessel or lesion type (HCC) - ICD9: 414.01, 413.9, ICD10: I25.119 (primary diagnosis) Patient with recent heart cath who left [facility] same day. Apparently had 3 stents, but report is not complete so I cannot determine where. Symptoms are improving, but still has some intermittent chest pain and SOB. Encouraged him to stop smoking, continue current regimen, f/u with cardiology and call to schedule cardiac rehab in [place]. Red flags for re-assessment reviewed with patient in detail. 2. S/P angioplasty with stent - ICD9: V45.89, ICD10: Z95.820 See above. 3. Hypertension, essential - ICD9: 401.9, ICD10: I10 - poor control - Increase HCTZ - Encouraged dietary sodium restriction/DASH diet - Recommended regular aerobic exercise. - Follow up in 2 weeks for BP recheck. - Reviewed risks of HTN and principles of treatment - Goal of BP <130/80 - HYDROCHLOROTHIAZIDE 50 MG TABLET - COMP METABOLIC PANEL 4. Tobacco use - ICD9: 305.1, ICD10: Z72.0 - Cessation encouraged. - Physiologic and physical aspects of tobacco addiction as well as strategies for quitting were discussed. - Counseling was given focusing on the harmful effects of this addiction especially given the patient's medical condition(s) which will be worsened because of the chemicals in tobacco. 5. Non-compliant patient - ICD9: V15.81, ICD10: Z91.199 Discussed with patient the risks of leaving AMA from hospital and not following instructions from his physician teams. Nehemiah Jacob MD documented in this encounter [facility] 04-01-2022 Note Patient Outreach (AM BC) BURAKGONZALES Onesimo ([id number]) 1960 M Date Time Provider Department 04/01/22 RADHA PINZON During your visit today, we recorded the following information about you: Radha Pinzon RN 04/01/2022 10:06 AM Signed TRANSITIONAL CARE MANAGEMENT (TCM) COMMUNITY MONITORING PROGRAM Provider Action/FYI: Pt left AMA Pt s/p heart cath Spoke with patient, denies chest pain, no sob, BP 170/80, states BP is good for him-did not want to speak with a doctor, tolerating diet, discussed limiting smoking and heart healthy diet SCHEDULING: pt needs follow-up appt with PCP 7-14 days please-patient eligible for TCM thru 04/14/22 SUMMARY: Pt discharged from [facility] on 03/31/22. Admitted for: unstable angina Contact made with patient: Yes Hi my name is Radha Pinzon RN and I am calling from the [facility] on behalf of your PCP, Nehemiah Jacob MD I understand you were recently in the hospital so I am calling to check in with you to ensure you are feeling well now that you're home. May I ask you a few questions related to your hospital stay and well-being? Yes Contact with patient post discharge, spoke to patient. Patient identified by name and . Do you feel your health is BETTER, WORSE, or the SAME since leaving the hospital? Better ACTION TAKEN: Patient indicated symptoms are better or same, no action required. Continue outreach. MEDICATIONS: Many patients have questions or concerns about their medications once they are home. Do you have any questions about taking your medications or which medication you should be on? No Do you need any medication refills at this time, including any of the medications you might take only when needed? No ACTION TAKEN: No action required For RNs or Pharmacy completing outreach ONLY, was a medication review completed? Yes SOCIAL: We would like to make sure you have what you need so that your basics needs are met - including your personal safety, food, housing and medications. Would you like to speak with a social work support team member to help give you support for any of these needs? No It can be normal to feel anxious or down during a time like this. Would you like to talk to a mental health professional about how you have been feeling? No ACTION TAKEN: No action taken DISCHARGE INTRUCTIONS: Your discharge instructions / After Visit Summary (AVS) are important in guiding you through the recovery process. Do you have any questions related to your discharge instructions? No Do you have all the necessary equipment and supplies at home? Yes ACTION TAKEN: No action required I would like to help you schedule a hospital follow-up virtual or telephone visit with your PCP. This is a great way for you to connect with your provider to ensure you have safely transitioned home. If you are agreeable, I will send your request to a ceramic tile installation helper who will contact and assist you with that appointment. This will give you an opportunity to ask any questions or address any concerns you may have with your PCP. Inform the patient that if they have any questions or concerns prior to that appointment, to call their PCP's office right away. ACTION TAKEN: Patient desires an appointment - Routed to [facility] [[id number]] for scheduling telehealth visit (telephonic, virtual visit, or Facetime) within 7 days of discharge with PCP care team. Indicate hospital follow-up appointment needed within 7 days in Provider/FYI box. End Outreach. Your doctor would like us to remind you of the recommendations regarding the coronavirus (Covid19) outbreak: Avoid public places as much as possible. Avoid close contact (within 6 feet) with others you don?t live with, especially if they are sick. Stay home if you are sick. Wash your hands regularly for at least 20 seconds with soap and water. Wear a cloth mask in public places to help reduce community spread. Do not go to your Doctor?s office unless instructed to do so. For any non-emergency symptoms, call your Doctor?s office to get instructions on how to manage (we might recommend a telephone or virtual visit). For emergency symptoms, proceed to Emergency Department as usual but inform them of cough and fever symptoms SHIVAM if present (or call on the way if possible). TCM Home Visit Referral Source of Stratification: TCM [facility] Hospital Admission Status: Discharged Readmission Risk Score: 8 CHRISTIANO Score: 1 Patient meets program referral criteria: No Patient does not qualify for High Risk TCM Home Visit program due to: Discharged home, does not meet program criteria Radha Pinzon RN April 01, 2022 10:06 AM Keke Clifford MA 04/01/2022 10:16 AM Signed POPULATION HEALTH NAVIGATION OUTREACH Action/FYI Spoke with pt. Pt scheduled for hospital follow up with (more content not included)... [facility] 04-01-2022 Miscellaneous Notes Received Cardiac Rehab referral. Spoke with patient, he is interested in location closer to home. Patient does not want [facility] as he wishes to stay within [facility]. Patient chooses [place] as preferred location. Referral sent to [place] to contact patient for scheduling. documented in this encounter [facility] 04-01-2022 Note HNO ID: [id number] Author: Keke Clifford MA Service: ? Author Type: Cloth Desizing Range Operator Chief Type: Progress Notes Filed: 04/01/2022 10:16 AM Note Text: POPULATION HEALTH NAVIGATION OUTREACH Action/FYI Spoke with pt. Pt scheduled for hospital follow up with PCP on 04/05/22. TCM eligible thru 04/14/22 Pt discharged from [facility] on 03/31/22. Admitted for: unstable angina Pt identified by name and : YES, via phone Outreach Outcome/Action Spoke to patient or caregiver: Patient scheduled Did you use a PCP flex slot to schedule this appointment? No Reason for Outreach [facility] [place] Payer: Payor: FLASH / Plan: BLUE CARD PPO OOS / Product Type: PPO / Care Gap Reviewed:: Follow-up appointment Reminder: Reminder note to check Health Maintenance for items below Health Maintenance items due: COVID-19 VACCINE(1) Never done PNEUMOCOCCAL(1 - PCV) Never done HIV SCREENING Never done BP CONTROLLED (<130/80) Never done ALPHA-1 ANTITRYPSIN DEFICIENCY SCREENING Never done DTAP,TDAP,TD(1 - Tdap) due on 12/29/2004 COLORECTAL CANCER SCREENING Never done LUNG CANCER SCREENING Never done SHINGRIX VACCINE(1 of 2) Never done PROSTATE CANCER SCREENING DISCUSSION Never done DEPRESSION ASSESSMENT Never done INFLUENZA(1) due on 12/30/2021 Message Sent to Practice: No Navigation Signature: Keke Clifford MA April 01, 2022 10:[address] [facility] 04-01-2022 Note HNO ID: [id number] Author: Radha Pinzon RN Service: ? Author Type: Registered Nurse Type: Progress Notes Filed: 04/01/2022 10:06 AM Note Text: TRANSITIONAL CARE MANAGEMENT (TCM) COMMUNITY MONITORING PROGRAM Provider Action/FYI: Pt left AMA Pt s/p heart cath Spoke with patient, denies chest pain, no sob, BP 170/80, states BP is good for him-did not want to speak with a doctor, tolerating diet, discussed limiting smoking and heart healthy diet SCHEDULING: pt needs follow-up appt with PCP 7-14 days please-patient eligible for TCM thru 04/14/22 SUMMARY: Pt discharged from [facility] on 03/31/22. Admitted for: unstable angina Contact made with patient: Yes Hi my name is Radha Pinzon RN and I am calling from the [facility] on behalf of your PCP, Nehemiah Jacob MD I understand you were recently in the hospital so I am calling to check in with you to ensure you are feeling well now that you're home. May I ask you a few questions related to your hospital stay and well-being? Yes Contact with patient post discharge, spoke to patient. Patient identified by name and . Do you feel your health is BETTER, WORSE, or the SAME since leaving the hospital? Better ACTION TAKEN: Patient indicated symptoms are better or same, no action required. Continue outreach. MEDICATIONS: Many patients have questions or concerns about their medications once they are home. Do you have any questions about taking your medications or which medication you should be on? No Do you need any medication refills at this time, including any of the medications you might take only when needed? No ACTION TAKEN: No action required For RNs or Pharmacy completing outreach ONLY, was a medication review completed? Yes SOCIAL: We would like to make sure you have what you need so that your basics needs are met - including your personal safety, food, housing and medications. Would you like to speak with a social work support team member to help give you support for any of these needs? No It can be normal to feel anxious or down during a time like this. Would you like to talk to a mental health professional about how you have been feeling? No ACTION TAKEN: No action taken DISCHARGE INTRUCTIONS: Your discharge instructions / After Visit Summary (AVS) are important in guiding you through the recovery process. Do you have any questions related to your discharge instructions? No Do you have all the necessary equipment and supplies at home? Yes ACTION TAKEN: No action required I would like to help you schedule a hospital follow-up virtual or telephone visit with your PCP. This is a great way for you to connect with your provider to ensure you have safely transitioned home. If you are agreeable, I will send your request to a ceramic tile installation helper who will contact and assist you with that appointment. This will give you an opportunity to ask any questions or address any concerns you may have with your PCP. Inform the patient that if they have any questions or concerns prior to that appointment, to call their PCP's office right away. ACTION TAKEN: Patient desires an appointment - Routed to [facility] [[id number]] for scheduling telehealth visit (telephonic, virtual visit, or Facetime) within 7 days of discharge with PCP care team. Indicate hospital follow-up appointment needed within 7 days in Provider/FYI box. End Outreach. Your doctor would like us to remind you of the recommendations regarding the coronavirus (Covid19) outbreak: Avoid public places as much as possible. Avoid close contact (within 6 feet) with others you don?t live with, especially if they are sick. Stay home if you are sick. Wash your hands regularly for at least 20 seconds with soap and water. Wear a cloth mask in public places to help reduce community spread. Do not go to your Doctor?s office unless instructed to do so. For any non-emergency symptoms, call your Doctor?s office to get instructions on how to manage (we might recommend a telephone or virtual visit). For emergency symptoms, proceed to Emergency Department as usual but inform them of cough and fever symptoms SHIVAM if present (or call on the way if possible). TCM Home Visit Referral Source of Stratification: T[facility] Admission Status: Discharged Readmission Risk Score: 8 CHRISTIANO Score: 1 Patient meets program referral criteria: No Patient does not qualify for High Risk TCM Home Visit program due to: Discharged home, does not meet program criteria Radha Pinzon RN April 01, 2022 10:[address] [facility] 04-01-2022 Miscellaneous Notes Called PT about echocardiogram shows normal heart function without any wall motion abnormalities. Heart muscle is slightly thick probably from blood pressure. Scott Lott MD PT states he understands ----- Message from Scott Lott MD sent at 03/31/2022 1:40 PM EST ----- Please inform patient that echocardiogram shows normal heart function without any wall motion abnormalities. Heart muscle is slightly thick probably from blood pressure. Scott Lott MD documented in this encounter [facility] 04-01-2022 History of Present illness Narrative POPULATION HEALTH NAVIGATION OUTREACH Action/MILTON Spoke with pt. Pt scheduled for hospital follow up with PCP on 04/05/22. TCM eligible thru 04/14/22 Pt discharged from [facility] on 03/31/22. Admitted for: unstable angina Pt identified by name and : YES, via phone Outreach Outcome/Action Spoke to patient or caregiver: Patient scheduled Did you use a PCP flex slot to schedule this appointment? No Reason for Outreach Community Monitoring Pool Payer: Payor: FLASH / Plan: BLUE CARD PPO OOS / Product Type: PPO / Care Gap Reviewed:: Follow-up appointment Reminder: Reminder note to check Health Maintenance for items below Health Maintenance items due: COVID-19 VACCINE(1) Never done PNEUMOCOCCAL(1 - PCV) Never done HIV SCREENING Never done BP CONTROLLED (<130/80) Never done ALPHA-1 ANTITRYPSIN DEFICIENCY SCREENING Never done DTAP,TDAP,TD(1 - Tdap) due on 12/29/2004 COLORECTAL CANCER SCREENING Never done LUNG CANCER SCREENING Never done SHINGRIX VACCINE(1 of 2) Never done PROSTATE CANCER SCREENING DISCUSSION Never done DEPRESSION ASSESSMENT Never done INFLUENZA(1) due on 12/30/2021 Message Sent to Practice: No Navigation Signature: Keke Clifford MA April 01, 2022 10:12 AM TRANSITIONAL CARE MANAGEMENT (TCM) COMMUNITY MONITORING PROGRAM Provider Action/FYI: Pt left AMA Pt s/p heart cath Spoke with patient, denies chest pain, no sob, BP 170/80, states BP is good for him-did not want to speak with a doctor, tolerating diet, discussed limiting smoking and heart healthy diet SCHEDULING: pt needs follow-up appt with PCP 7-14 days please-patient eligible for TCM thru 04/14/22 SUMMARY: Pt discharged from [facility] on 03/31/22. Admitted for: unstable angina Contact made with patient: Yes Hi my name is Radha Pinzon RN and I am calling from the [facility] on behalf of your PCP, Nehemiah Jacob MD I understand you were recently in the hospital so I am calling to check in with you to ensure you are feeling well now that you're home. May I ask you a few questions related to your hospital stay and well-being? Yes Contact with patient post discharge, spoke to patient. Patient identified by name and . Do you feel your health is BETTER, WORSE, or the SAME since leaving the hospital? Better ACTION TAKEN: Patient indicated symptoms are better or same, no action required. Continue outreach. MEDICATIONS: Many patients have questions or concerns about their medications once they are home. Do you have any questions about taking your medications or which medication you should be on? No Do you need any medication refills at this time, including any of the medications you might take only when needed? No ACTION TAKEN: No action required For RNs or Pharmacy completing outreach ONLY, was a medication review completed? Yes SOCIAL: We would like to make sure you have what you need so that your basics needs are met - including your personal safety, food, housing and medications. Would you like to speak with a social work support team member to help give you support for any of these needs? No It can be normal to feel anxious or down during a time like this. Would you like to talk to a mental health professional about how you have been feeling? No ACTION TAKEN: No action taken DISCHARGE INTRUCTIONS: Your discharge instructions / After Visit Summary (AVS) are important in guiding you through the recovery process. Do you have any questions related to your discharge instructions? No Do you have all the necessary equipment and supplies at home? Yes ACTION TAKEN: No action required I would like to help you schedule a hospital follow-up virtual or telephone visit with your PCP. This is a great way for you to connect with your provider to ensure you have safely transitioned home. If you are agreeable, I will send your request to a ceramic tile installation helper who will contact and assist you with that appointment. This will give you an opportunity to ask any questions or address any concerns you may have with your PCP. Inform the patient that if they have any questions or concerns prior to that appointment, to call their PCP's office right away. ACTION TAKEN: Patient desires an appointment - Routed to [facility] [[id number]] for scheduling telehealth visit (telephonic, virtual visit, or Facetime) within 7 days of discharge with PCP care team. Indicate hospital follow-up appointment needed within 7 days in Provider/FYI box. End Outreach. Your doctor would like us to remind you of the recommendations regarding the coronavirus (Covid19) outbreak: Avoid public places as much as possible. Avoid close contact (within 6 feet) with others you don t live with, especially if they are sick. Stay home if you are sick. Wash your hands regularly for at least 20 seconds with soap and water. Wear a cloth mask in public places to help reduce community spread. Do not go to your Doctor s office unless instructed to do so. For any non-emergency symptoms, call your Doctor s office to get instructions on how to manage (we might recommend a telephone or virtual visit). For emergency symptoms, proceed to Emergency Department as usual but inform them of cough and fever symptoms SHIVAM if present (or call on the way if possible). TCM Home Visit Referral Source of Stratification: [facility] Admission Status: Discharged Readmission Risk Score: 8 CHRISTIANO Score: 1 Patient meets program referral criteria: No Patient does not qualify for High Risk TCM Home Visit program due to: Discharged home, does not meet program criteria Radha Pinzon RN April 01, 2022 10:06 AM documented in this encounter [facility] 03-29-2022 Miscellaneous Notes Letter mailed to pt home of results. Laurel Burch MA TC to patient. Mailbox is full, unable to leave message. Please try back later. Brooke Kebede LPN Please call patient and let him know his A1c is in good range Marcella Roberson APRN.PRODUCTION CLERK documented in this encounter [facility] 03-23-2022 Note HNO ID: [id number] Author: Scott Lott MD Service: ? Author Type: Physician Type: Progress Notes Filed: 03/23/2022 2:59 PM Note Text: Cardiology consultation at the request of Marcella Roberson TREND INVESTIGATOR. A copy of this consultation note will be provided to the requesting physician by way of shared Medical record or letter to requesting physician via [place] mail. Chief Complaint: No chief complaint on file. History of Present Illness: Gonzales Gustafson is a 61 year old male with history of essential hypertension, moderate coronary artery disease on heart catheterization in 2012, smoker was referred by his primary care physician for further evaluation of his symptoms of chest pain and shortness of breath. Patient has been having intermittent episodes of chest pain and shortness of breath. He says he has chest pain when he is last day at work. 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 He says he feels chest pain if he has to lift heavy loads and over exert himself. He says he takes sublingual nitroglycerin and the pain goes away. He said this happens at least once or twice a week. He also has associated shortness of breath on exertion. Denies any palpitations. Gets lightheaded occasionally fortunately when he comes down from the fall that he works out. He has not passed out. Denies any orthopnea PND or leg edema but does feel cold in his legs occasionally. Denies any claudication type symptoms. PAST MEDICAL HISTORY Diagnosis Date Coronary artery disease Seeing Tre previously Hypertension Non-compliant patient Right bundle branch block Tobacco use PAST SURGICAL HISTORY Procedure Laterality Date HEART CATHETERIZATION 2014 has had x3 FAMILY HISTORY Problem Relation Age of Onset Cancer Mother 52 stomach Hypertension Father 83 Diabetes Father Hypertension Brother 62 COPD Brother Coronary Artery Disease Brother Coronary Artery Disease Brother Hypertension Brother Social History Tobacco Use Smoking status: Every Day Packs/day: 1.00 Years: 38.00 Pack years: 38.00 Types: Cigarettes Start date: 12/03/1977 Smokeless tobacco: Never Tobacco comments: Relapsed on/after only a few weeks Chantix. TO 12/03/18. Substance Use Topics Alcohol use: No Drug use: No Current Outpatient Medications Medication Sig nitroglycerin sublingual (NITROQUICK) 0.4 mg SL tablet Dissolve 1 tablet under the tongue as needed for chest pain. FOR CHEST PAIN. IF NO RELIEF CALL 911 amLODIPine (NORVASC) 10 mg tablet Take 1 tablet by mouth once daily. hydroCHLOROthiazide (HYDRODIURIL, ESIDRIX) 12.5 mg capsule Take 1 capsule by mouth once daily. tiotropium bromide (SPIRIVA RESPIMAT) 2.5 mcg/actuation inhaler Inhale 2 Puffs as instructed once daily. atorvastatin (LIPITOR) 80 mg tablet Take 0.5 tablets by mouth daily at bedtime. For cholesterol. metoprolol succinate ER (TOPROL XL) 100 mg Take 1 tablet by mouth once daily. losartan (COZAAR) 100 mg tablet Take 1 tablet by mouth once daily. aspirin 81 mg chewable tablet Take 1 tablet by mouth once daily. multivitamin tablet Take 1 tablet by mouth once daily. No current facility-administered medications for this visit. ALLERGIES Allergen Reactions Chantix [Vareniclin* Rash Review of Systems: General: No weight loss, malaise, fevers, chills, or night sweats HEENT: Negative for epistaxis Neck: Negative for pain and significant neck swelling Respiratory: Negative for cough, shortness of breath at rest or on exertion, wheezing Gastrointestinal: Negative history of abdominal pain, nausea, vomiting, constipation, diarrhea, melena, or hematochezia Urinary: Negative history of dysuria, hematuria, or frequency Peripheral vascular: No claudication Musculoskeletal: Negative for joint aches/pain, neck pain, or back pain Neurologic: Negative history of dizziness/lightheadedness, vertigo, numbness/tingling of hands or feet Hematologic: Negative for easy bruising or easy bleeding. Endocrine: Negative history of obesity Skin: Negative history of rash and itching Other: The rest of the review of systems is unremarkable and negative or non-contributory Physical Examination: There were no vitals taken for this visit. No weight on file for this encounter. General appearance: Well appearing, alert, appears to be in no acute distress, cooperative Head: Normocephalic, atraumatic HEENT: Extraocular movements intact; mucous membranes moist; no JVD Lungs: Breath sounds equal. Clear to auscultation bilaterally, no rales, rhonchi, or wheezes Heart: RRR; normal S1/S2; no murmurs/gallops/rubs Abdomen: Abdomen soft, non-distended, non-tender. NABS Extremities: No cyanosis, clubbing or edema Skin: No rashes noted Neurologic: Grossly nonfocal Psych: Normal mood/affect Cardiac Testing and Procedures: Electrocardiogram: 03/23/2022: Normal sinus rhythm at [address] and T wave abnorma (more content not included)... [facility] 03-23-2022 History of Present illness Narrative Cardiology consultation at the request of Marcella Roberson NP. A copy of this consultation note will be provided to the requesting physician by way of shared Medical record or letter to requesting physician via [place] mail. Chief Complaint: No chief complaint on file. History of Present Illness: Gonzales Gustafson is a 61 year old male with history of essential hypertension, moderate coronary artery disease on heart catheterization in 2013, smoker was referred by his primary care physician for further evaluation of his symptoms of chest pain and shortness of breath. Patient has been having intermittent episodes of chest pain and shortness of breath. He says he has chest pain when he is last day at work. 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 He says he feels chest pain if he has to lift heavy loads and over exert himself. He says he takes sublingual nitroglycerin and the pain goes away. He said this happens at least once or twice a week. He also has associated shortness of breath on exertion. Denies any palpitations. Gets lightheaded occasionally fortunately when he comes down from the fall that he works out. He has not passed out. Denies any orthopnea PND or leg edema but does feel cold in his legs occasionally. Denies any claudication type symptoms. PAST MEDICAL HISTORY Diagnosis Date Coronary artery disease Seeing Tre previously Hypertension Non-compliant patient Right bundle branch block Tobacco use PAST SURGICAL HISTORY Procedure Laterality Date HEART CATHETERIZATION 2013 has had x3 FAMILY HISTORY Problem Relation Age of Onset Cancer Mother 52 stomach Hypertension Father 83 Diabetes Father Hypertension Brother 62 COPD Brother Coronary Artery Disease Brother Coronary Artery Disease Brother Hypertension Brother Social History Tobacco Use Smoking status: Every Day Packs/day: 1.00 Years: 38.00 Pack years: 38.00 Types: Cigarettes Start date: 12/03/1977 Smokeless tobacco: Never Tobacco comments: Relapsed on/after only a few weeks Chantix. TO 12/03/18. Substance Use Topics Alcohol use: No Drug use: No Current Outpatient Medications Medication Sig nitroglycerin sublingual (NITROQUICK) 0.4 mg SL tablet Dissolve 1 tablet under the tongue as needed for chest pain. FOR CHEST PAIN. IF NO RELIEF CALL 911 amLODIPine (NORVASC) 10 mg tablet Take 1 tablet by mouth once daily. hydroCHLOROthiazide (HYDRODIURIL, ESIDRIX) 12.5 mg capsule Take 1 capsule by mouth once daily. tiotropium bromide (SPIRIVA RESPIMAT) 2.5 mcg/actuation inhaler Inhale 2 Puffs as instructed once daily. atorvastatin (LIPITOR) 80 mg tablet Take 0.5 tablets by mouth daily at bedtime. For cholesterol. metoprolol succinate ER (TOPROL XL) 100 mg Take 1 tablet by mouth once daily. losartan (COZAAR) 100 mg tablet Take 1 tablet by mouth once daily. aspirin 81 mg chewable tablet Take 1 tablet by mouth once daily. multivitamin tablet Take 1 tablet by mouth once daily. No current facility-administered medications for this visit. ALLERGIES Allergen Reactions Chantix [Vareniclin* Rash Review of Systems: General: No weight loss, malaise, fevers, chills, or night sweats HEENT: Negative for epistaxis Neck: Negative for pain and significant neck swelling Respiratory: Negative for cough, shortness of breath at rest or on exertion, wheezing Gastrointestinal: Negative history of abdominal pain, nausea, vomiting, constipation, diarrhea, melena, or hematochezia Urinary: Negative history of dysuria, hematuria, or frequency Peripheral vascular: No claudication Musculoskeletal: Negative for joint aches/pain, neck pain, or back pain Neurologic: Negative history of dizziness/lightheadedness, vertigo, numbness/tingling of hands or feet Hematologic: Negative for easy bruising or easy bleeding. Endocrine: Negative history of obesity Skin: Negative history of rash and itching Other: The rest of the review of systems is unremarkable and negative or non-contributory Physical Examination: There were no vitals taken for this visit. No weight on file for this encounter. General appearance: Well appearing, alert, appears to be in no acute distress, cooperative Head: Normocephalic, atraumatic HEENT: Extraocular movements intact; mucous membranes moist; no JVD Lungs: Breath sounds equal. Clear to auscultation bilaterally, no rales, rhonchi, or wheezes Heart: RRR; normal S1/S2; no murmurs/gallops/rubs Abdomen: Abdomen soft, non-distended, non-tender. NABS Extremities: No cyanosis, clubbing or edema Skin: No rashes noted Neurologic: Grossly nonfocal Psych: Normal mood/affect Cardiac Testing and Procedures: Electrocardiogram: 03/23/2022: Normal sinus rhythm at [address] and T wave abnormality consider anterolateral ischemia. Cardiac Catheterization/Percutaneous Coronary Intervention (PCI): 12/19/2012: Mild left main disease, mild diffuse LAD disease, left circumflex subtotal occlusion of OM1, mid circumflex 50 to 60% disease. RCA large without any disease. I have personally reviewed the Electrocardiogram. ASSESSMENT/PLAN: 1. 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 He says he gets pain on exertion and goes away at rest or with sublingual nitroglycerin. He says this happens at least once or twice a week. Patient's EKG shows T wave inversion in anterolateral leads. This was present on previous EKG from 2020 as well. Patient underwent an exercise stress test which was abnormal. We will schedule him for left heart catheterization as soon as possible. I have told him that if his chest pain does not go away at rest or with 2 sublingual nitroglycerin to call 911 go to the ER right away for urgent evaluation. He is to continue aspirin, beta-blockers, calcium channel blockers and high intensity statins. I have also started him on Imdur 30 mg daily as a third antianginal agent. 2. SOB (shortness of breath) - ICD9: 786.05, ICD10: R06.02 Likely from CAD and or smoking history. 3. Essential hypertension Poorly controlled. I have stopped metoprolol and switched him to carvedilol 12.5 g twice daily. If blood pressures remain uncontrolled to increase Coreg dose further to 25 mg twice a day. 3. Smoker SMOKING CESSATION COUNSELING Smoking cessation methods including Nicotine Replacement Therapies were discussed with the patient and assistance offered. The medical conditions adversely affected by cigarette use include:COPD. The patient is currently not ready to quit. I personally spent 3 minutes in counseling. The time spent in smoking cessation counseling is exclusive of any other counseling during this visit. Scott Lott MD documented in this encounter [facility] 03-09-2022 Note HNO ID: [id number] Author: Marcella Roberson APRN.PRODUCTION CLERK Service: ? Author Type: Nurse Practitioner Type: Progress Notes Filed: 03/09/2022 5:47 PM Note Text: 03/09/2022 Patient presents with: Blood Pressure Check SUBJECTIVE: This is a 61 year old that is here today for Above Complaints. Has been taking BP daily at home but reports most blood pressures still elevated 200/90's. Reports he has been doubling up on one of his pills as instructed which he thinks is the amlodipine. Admits vision is blurry at times. Reports he also had chest pain when shoveling and took three nitro tablets which stopped it. Denies headaches, extremity numbness, tingling, weakness, slurred speech, facial drooping or confusion. PAST MEDICAL HISTORY Diagnosis Date Coronary artery disease Seeing Tre previously Hypertension Non-compliant patient Right bundle branch block Tobacco use ALLERGIES Chantix [Varenicline] MEDICATIONS Current Outpatient Medications Medication Sig amLODIPine (NORVASC) 5 mg tablet Take 1 tablet by mouth once daily. tiotropium bromide (SPIRIVA RESPIMAT) 2.5 mcg/actuation inhaler Inhale 2 Puffs as instructed once daily. atorvastatin (LIPITOR) 80 mg tablet Take 0.5 tablets by mouth daily at bedtime. For cholesterol. metoprolol succinate ER (TOPROL XL) 100 mg Take 1 tablet by mouth once daily. losartan (COZAAR) 100 mg tablet Take 1 tablet by mouth once daily. aspirin 81 mg chewable tablet Take 1 tablet by mouth once daily. multivitamin tablet Take 1 tablet by mouth once daily. No current facility-administered medications for this visit. Medications and allergies reviewed by this provider. SOCIAL HISTORY Social History Tobacco Use Smoking status: Every Day Packs/day: 1.00 Years: 38.00 Pack years: 38.00 Types: Cigarettes Start date: 12/03/1977 Smokeless tobacco: Never Tobacco comments: Relapsed on/after only a few weeks Chantix. TO 12/03/18. Substance Use Topics Alcohol use: No Drug use: No REVIEW OF SYSTEMS All other reviewed and negative other than HPI. OBJECTIVE: BP 200/87 Pulse 71 Wt 111.1 kg (245 lb) SpO2 99% BMI 30.62 kg/m? . Vital signs reviewed by this provider. APPEARANCE Well appearing, alert, in no acute distress, well-hydrated, well nourished. EYES conjunctiva and sclera normal. HEART RRR with normal S1 and S2, no murmurs, no gallops, no JVD appreciated LUNG clear to auscultation. No wheezes, rhonchi, or rales EXTREMITIES Extremities normal, No deformities, No skin discoloration, and No edema SKIN Skin color, texture, turgor normal, no suspicious rashes or lesions to exposed skin COVID-19 VACCINE(1) Never done PNEUMOCOCCAL(1 - PCV) Never done HIV SCREENING Never done BP CONTROLLED (<130/80) Never done ALPHA-1 ANTITRYPSIN DEFICIENCY SCREENING Never done DTAP,TDAP,TD(1 - Tdap) due on 12/29/2004 COLORECTAL CANCER SCREENING Never done LUNG CANCER SCREENING Never done SHINGRIX VACCINE(1 of 2) Never done PROSTATE CANCER SCREENING DISCUSSION Never done DEPRESSION ASSESSMENT Never done INFLUENZA(1) due on 12/30/2021 LDL CHOLESTEROL due on 02/02/2023 ANNUAL PCP TEAM CHRONIC DISEASE VISIT due on 02/02/2023 DIABETES SCREEN due on 02/02/2025 LIPID SCREEN due on 02/02/2027 SPIROMETRY Completed HEPATITIS C SCREENING Completed ASSESSMENT/PLAN: 1. Hypertension, essential - ICD9: 401.9, ICD10: I10 (primary diagnosis) - poor control - after discussion patient was to double up on his metoprolol XL. I asked him what dose his bottle says as he had 50 mg and this is what he was to double up on. A new 100 mg prescription was sent so I have asked him to check his bottle to see what dose it says on it and let me know - Increase amlodipine (Norvasc) - Encouraged dietary sodium restriction/DASH diet - Recommended regular aerobic exercise. - Recommend home blood pressure monitoring, to bring results in on next visit - Discussed need and benefit for weight loss. - is to take BP at home daily and up date me in one week with readings - Recheck in 2 weeks, sooner should new symptoms or problems arise. - Goal of BP <130/80 - Patient counselled on smoking cessation. - Recommend home or pharmacy blood pressure monitoring - Recommended no refined sugar, low refined starch, healthy oil intake (olive oil), healthy protein (fish) along the lines of the Mediterranean diet. - AMLODIPINE 10 MG TABLET - HYDROCHLOROTHIAZIDE 12.5 MG CAPSULE 2. 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 We discussed risk of due to cardiac arrest if he does not proceed to ER with chest pain, he verbalizes understanding - also discussed he needs to make sure he goes to his scheduled cardiology appointment in March, verbal (more content not included)... [facility] 03-09-2022 History of Present illness Narrative 03/09/2022 Patient presents with: Blood Pressure Check SUBJECTIVE: This is a 61 year old that is here today for Above Complaints. Has been taking BP daily at home but reports most blood pressures still elevated 200/90's. Reports he has been doubling up on one of his pills as instructed which he thinks is the amlodipine. Admits vision is blurry at times. Reports he also had chest pain when shoveling and took three nitro tablets which stopped it. Denies headaches, extremity numbness, tingling, weakness, slurred speech, facial drooping or confusion. PAST MEDICAL HISTORY Diagnosis Date Coronary artery disease Seeing Tre previously Hypertension Non-compliant patient Right bundle branch block Tobacco use ALLERGIES Chantix [Varenicline] MEDICATIONS Current Outpatient Medications Medication Sig amLODIPine (NORVASC) 5 mg tablet Take 1 tablet by mouth once daily. tiotropium bromide (SPIRIVA RESPIMAT) 2.5 mcg/actuation inhaler Inhale 2 Puffs as instructed once daily. atorvastatin (LIPITOR) 80 mg tablet Take 0.5 tablets by mouth daily at bedtime. For cholesterol. metoprolol succinate ER (TOPROL XL) 100 mg Take 1 tablet by mouth once daily. losartan (COZAAR) 100 mg tablet Take 1 tablet by mouth once daily. aspirin 81 mg chewable tablet Take 1 tablet by mouth once daily. multivitamin tablet Take 1 tablet by mouth once daily. No current facility-administered medications for this visit. Medications and allergies reviewed by this provider. SOCIAL HISTORY Social History Tobacco Use Smoking status: Every Day Packs/day: 1.00 Years: 38.00 Pack years: 38.00 Types: Cigarettes Start date: 12/03/1977 Smokeless tobacco: Never Tobacco comments: Relapsed on/after only a few weeks Chantix. TO 12/03/18. Substance Use Topics Alcohol use: No Drug use: No REVIEW OF SYSTEMS All other reviewed and negative other than HPI. OBJECTIVE: BP 200/87 Pulse 71 Wt 111.1 kg (245 lb) SpO2 99% BMI 30.62 kg/m . Vital signs reviewed by this provider. APPEARANCE Well appearing, alert, in no acute distress, well-hydrated, well nourished. EYES conjunctiva and sclera normal. HEART RRR with normal S1 and S2, no murmurs, no gallops, no JVD appreciated LUNG clear to auscultation. No wheezes, rhonchi, or rales EXTREMITIES Extremities normal, No deformities, No skin discoloration, and No edema SKIN Skin color, texture, turgor normal, no suspicious rashes or lesions to exposed skin COVID-19 VACCINE(1) Never done PNEUMOCOCCAL(1 - PCV) Never done HIV SCREENING Never done BP CONTROLLED (<130/80) Never done ALPHA-1 ANTITRYPSIN DEFICIENCY SCREENING Never done DTAP,TDAP,TD(1 - Tdap) due on 12/29/2004 COLORECTAL CANCER SCREENING Never done LUNG CANCER SCREENING Never done SHINGRIX VACCINE(1 of 2) Never done PROSTATE CANCER SCREENING DISCUSSION Never done DEPRESSION ASSESSMENT Never done INFLUENZA(1) due on 12/30/2021 LDL CHOLESTEROL due on 02/02/2023 ANNUAL PCP TEAM CHRONIC DISEASE VISIT due on 02/02/2023 DIABETES SCREEN due on 02/02/2025 LIPID SCREEN due on 02/02/2027 SPIROMETRY Completed HEPATITIS C SCREENING Completed ASSESSMENT/PLAN: 1. Hypertension, essential - ICD9: 401.9, ICD10: I10 (primary diagnosis) - poor control - after discussion patient was to double up on his metoprolol XL. I asked him what dose his bottle says as he had 50 mg and this is what he was to double up on. A new 100 mg prescription was sent so I have asked him to check his bottle to see what dose it says on it and let me know - Increase amlodipine (Norvasc) - Encouraged dietary sodium restriction/DASH diet - Recommended regular aerobic exercise. - Recommend home blood pressure monitoring, to bring results in on next visit - Discussed need and benefit for weight loss. - is to take BP at home daily and up date me in one week with readings - Recheck in 2 weeks, sooner should new symptoms or problems arise. - Goal of BP <130/80 - Patient counselled on smoking cessation. - Recommend home or pharmacy blood pressure monitoring - Recommended no refined sugar, low refined starch, healthy oil intake (olive oil), healthy protein (fish) along the lines of the Mediterranean diet. - AMLODIPINE 10 MG TABLET - HYDROCHLOROTHIAZIDE 12.5 MG CAPSULE 2. 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 We discussed risk of due to cardiac arrest if he does not proceed to ER with chest pain, he verbalizes understanding - also discussed he needs to make sure he goes to his scheduled cardiology appointment in March, verbalizes understanding - NITROGLYCERIN 0.4 MG SUBLINGUAL TABLET Marcella Roberson APRN.PRODUCTION CLERK Prescription instructions reviewed with patient as applicable. Patient advised if symptoms do not improve or if symptoms worsen sooner, to contact their primary care physician. Potential red flag symptoms discussed with the patient. Reviewed appropriate action plan to take if red flag symptoms occur. Patient agreeable to treatment plan. I spent a total of 25 minutes on the date of the service which included preparing to see the patient, [id number] patient care, completing clinical documentation, obtaining and/or reviewing separately obtained history, performing a medically appropriate examination, counseling and educating the patient/family/caregiver, and ordering medications, tests, or procedures. documented in this encounter [facility] 03-03-2022 Note HNO ID: [id number] Author: Kiersten Robertson PA-C Service: ? Author Type: Physician Technical Laboratory Asst Type: Progress Notes Filed: 03/03/2022 10:40 AM Note Text: Nocturnal Oximetry, RA, 02/21/2022. Recording interval: 4:52:12 High pulse: 77 Low pulse: 54 Highest spO2: 99% Lowest spO2: 90% Time with spO2 < 88%: 0 minutes Recommendation: Based on above results, patient does not require supplemental oxygen. I have received and reviewed the outside records noted above. Kiersten Robertson PA-C [facility] [place] [facility] 03-03-2022 History of Present illness Narrative Nocturnal Oximetry, RA, 02/21/2022. Recording interval: 4:52:12 High pulse: 77 Low pulse: 54 Highest spO2: 99% Lowest spO2: 90% Time with spO2 < 88%: 0 minutes Recommendation: Based on above results, patient does not require supplemental oxygen. I have received and reviewed the outside records noted above. Kiersten Robertson PA-C [facility] [place] documented in this encounter [facility] 03-02-2022 Miscellaneous Notes Pt notified. Appt scheduled. Yunior Guardado LPN I will send over rx for 30 day. He is due for 2 week f/u appointment to recheck BP. Please schedule OV with Marcella in the next week. reports [facility] tells her patient has no refills at the pharmacy. Reports [facility] tells her pcp office needs to call them. This nurse phoned [facility] and spoke to Corina, Sony, who reports patient has refills on all his medications except amlodipine. Pended rx for amlodipine. Notified patient there are refills on all of his Rx's at [facility], and will send refill request to provider for amlodipine. documented in this encounter [facility] 02-22-2022 Miscellaneous Notes Patient returned call and went over results, notes from Marcella Roberson TREND INVESTIGATOR with understanding. TC to patient with no answer. Left message to return call to office to receive results. KIRSTEN Noyola Please call patient and let him know his stress test was abnormal. I have reached out to cardiology to see if we can facilitate an earlier appointment. In the meantime if he develops chest pain, increasing shortness of breath, difficulty breathing or palpitations he needs to go to ER. Thanks, Marcella Roberson APRN.THOM documented in this encounter [facility] 02-22-2022 Miscellaneous Notes RX sent to [facility] by Bruna at last office visit. Li Isaac LPN Requested Prescriptions Pending Prescriptions Disp Refills tiotropium bromide (SPIRIVA RESPIMAT) 2.5 mcg/actuation inhaler 1 Each 5 Sig: Inhale 2 Puffs as instructed once daily. Pt came in for stress test today and states he is out of his inhaler. documented in this encounter [facility] 02-21-2022 Miscellaneous Notes Valid script at [facility] for Amlodipine, Losartan & Metoprolol. Daily [facility] verified in [facility] Patient has been identified by name and date of : Yes Patient aware RX will be sent to pharmacy. No need to notify patient. Spouse phones for refill(s): Requested Prescriptions Pending Prescriptions Disp Refills amLODIPine (NORVASC) 5 mg tablet 30 tablet 0 Sig: Take 1 tablet by mouth once daily. losartan (COZAAR) 100 mg tablet 30 tablet 5 Sig: Take 1 tablet by mouth once daily. metoprolol succinate ER (TOPROL XL) 100 mg 90 tablet 0 Sig: Take 1 tablet by mouth once daily. Date of last office visit : 02/02/2022 Date of next office visit : Visit date not found Last 2 Encounter Wt Readings: Date: Wt: 02/17/2022 104.8 kg (231 lb) 02/17/2022 104.8 kg (231 lb) Please advise. Kiersten Harry Pss documented in this encounter [facility] 02-17-2022 Miscellaneous Notes Call to pt to review stress test instructions. Pt verbalized understanding. Patient telephoned. Message left to call back for update. Brooke Kebede LPN Please call patient and let him know I changed his order for his stress test as insurance has denied non treadmill stress test. He will need to cancel his test and reschedule as treadmill stress test. Also let him know he missed his appointment today. Please see if he will reschedule. Marcella Roberson APRN.THOM Patient telephoned. States he can not run on a treadmill due to not getting enough air while active. Brooke Kebede LPN Insurance denying stress test likely because it is not ordered as a treadmill stress test. Is patient able to run on a treadmill? If so I will need to change it. Marcella Roberson APRN.THOM documented in this encounter [facility] 02-17-2022 Note HNO ID: [id number] Author: Mary Saavedra MD Service: ? Author Type: Physician Type: Progress Notes Filed: 02/17/2022 9:39 AM Note Text: . [facility] [place] Note Patient name: Gonzales Gustafson PCP: Nehemiah Jacob MD CC: Shortness of breath HPI: Gonzales Gustafson 61 year old male smoker with PMH significant for HTN, CAD being referred for abnormal lung function. Previously seen by Dr. Hobbs 3 years ago for COPD due to SOB, wheezing not responsive to inhaled therapy or prednisone. Spirometry normal, not consistent with COPD despite smoking history. He is being sent again for evaluation for similar issues. Current symptoms consist of shortness of breath with activity. The degree of his limitation is apical portion of the findings on his pulmonary function testing. He has a chronic cough with sputum production mainly in the morning related to his smoking. He has wheezing. Current use of albuterol does help his respiratory symptoms but does not last. Prior use of longer acting bronchodilators in the past believed to cause worsening of his high blood pressure. He denies a history of recurrent bronchitis or pneumonia. He has not been hospitalized for his lung disease. He has not been able to quit smoking. Tried Chantix in the past but had allergic reaction and nicotine replacement resulted in chest pain and tachycardia. He has been having nocturnal awakenings due to shortness of breath. Some occasional ankle edema. He states that he snored in the past but is currently not snoring at least according to his . He has daily morning headaches. STOP BANG Questionnaire 1. Snoring Do you snore loudly (louder than talking or loud enough to be heard through closed doors)? NO 2. Tired Do you often feel tired, fatigued, or sleepy during daytime? YES 3. Observed Has anyone observed you stop breathing during your sleep? NO 4. Blood Pressure Do you have or are you being treated for high blood pressure? YES 5. BMI BMI more than 35 kg/m2? NO 6. Age Age over 50 yr old? YES 7. Neck circumference Neck circumference greater than 40 cm? NO 8. Gender Gender male? YES * Neck circumference is measured by staff High risk of OANH: answering yes to three or more items Low risk of OANH: answering yes to less than three items DATA: PFT: Review of pulmonary function test show no obstruction RESPIRATORY THERAPY ORAL EXHALED NITRIC OXIDE SERVICE DATE: 02/17/2022 SERVICE TIME: 8:29 AM Oral Exhaled Nitric Oxide measurement: 17.0 (ppb) PFT 2019: Labs: Component Ref Range AND Units 13 d ago NT Pro BNP <125 pg/mL 526 High Component Ref Range AND Units 13 d ago WBC 3.70 - 11.00 k/uL 8.73 RBC 4.20 - 6.00 m/uL 5.80 Hemoglobin 13.0 - 17.0 g/dL 17.4 High Hematocrit 39.0 - 51.0 % 50.7 MCV 80.0 - 100.0 fL 87.4 MCH 26.0 - 34.0 pg 30.0 MCHC 30.5 - 36.0 g/dL 34.3 RDW-CV 11.5 - 15.0 % 12.9 Platelet Count 150 - 400 k/uL 228 MPV 9.0 - 12.7 fL 10.0 Neut% % 69.9 Abs Neut 1.45 - 7.50 k/uL 6.10 Lymph% % 21.9 Abs Lymph 1.00 - 4.00 k/uL 1.91 Dickens% % 6.3 Abs Dickens <0.87 k/uL 0.55 Eosin% % 0.6 Abs Eosin <0.46 k/uL 0.05 Baso% % 1.0 Abs Baso <0.11 k/uL 0.09 Immature Gran % % 0.3 Abs Immature Gran <0.10 k/uL 0.03 NRBC /100 WBC 0.0 Absolute nRBC <0.01 k/uL <0.01 Diff Type Auto Diff Type Imaging / Diagnostic Studies: CXR [facility] 01/17/22: Reviewed and shows no abnormalities PAST MEDICAL HISTORY Diagnosis Date Coronary artery disease Seeing Tre previously Hypertension Non-compliant patient Right bundle branch block Tobacco use ALLERGIES Allergen Reactions Chantix [Vareniclin* Rash atorvastatin (LIPITOR) 80 mg tablet Take 0.5 tablets by mouth daily at bedtime. For cholesterol. metoprolol succinate ER (TOPROL XL) 100 mg Take 1 tablet by mouth once daily. losartan (COZAAR) 100 mg tablet Take 1 tablet by mouth once daily. aspirin 81 mg chewable tablet Take 1 tablet by mouth once daily. amLODIPine (NORVASC) 5 mg tablet Take 1 tablet by mouth once daily. multivitamin tablet Take 1 tablet by mouth once daily. Social History Tobacco Use Smoking status: Every Day Packs/day: 1.00 Years: 38.00 Pack years: 38.00 Types: Cigarettes Start date: 12/03/1977 Smokeless tobacco: Never Tobacco comments: Relapsed on/after only a few weeks Chantix. TO 12/03/18. 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 [facility] 02-17-2022 Note HNO ID: [id number] Author: JEAN Ricks Service: ? Author Type: Respiratory Therapist Type: Procedures Filed: 02/17/2022 8:29 AM Note Text: RESPIRATORY THERAPY ORAL EXHALED NITRIC OXIDE SERVICE DATE: 02/17/2022 SERVICE TIME: 8:29 AM Oral Exhaled Nitric Oxide measurement: 17.0 (ppb) Normal: Adult 5-20 ppb, pediatric (<12 years) 5-15 ppb High Normal / Increased: Adult 20-35 ppb, pediatric (<12 years) 15-25 ppb Moderately raised exhaled Nitric Oxide may indicate underlying inflammation, but note that: Cold and influenza can raise exhaled Nitric Oxide and some patients have higher baseline exhaled Nitric Oxide levels than others. High: Adult >35 ppb, pediatric (<12 years) >25 ppb Indicative of ongoing eosinophilic inflammation. Symptomatic patient likely to respond to steroids. Possible causes (if already on steroids): Poor compliance, recent allergen exposure, steroid dose inadequate, and steroid resistance. Note that not all patients with high exhaled nitric oxide levels display symptoms. Oral Exhaled Nitric Oxide measurement (Previous Encounters) Test Date Oral Exhaled Nitric Oxide (ppb) 02/17/2022 17.0 NAME: JEAN Ricks PATIENT NAME: Gonzales Gustafson DATE: February 17, 2022 TIME: 8:[address] [facility] 02-17-2022 Note HNO ID: [id number] Author: JEAN Ricks Service: ? Author Type: Respiratory Therapist Type: Progress Notes Filed: 02/17/2022 8:29 AM Note Text: PULM FUNCTION SMARTBLOCK: Provider: Mary Saavedra MD Assisting Tech: JEAN Ricks Spirometry: 1 Exhaled Nitric Oxide: [address] [facility] 02-17-2022 History of Present illness Narrative Images from the original note were not included. . [facility] [place] Note Patient name: Gonzales Gustafson PCP: Nehemiah Jacob MD CC: Shortness of breath HPI: Gonzales Gustafson 61 year old male smoker with PMH significant for HTN, CAD being referred for abnormal lung function. Previously seen by Dr. Hobbs 3 years ago for COPD due to SOB, wheezing not responsive to inhaled therapy or prednisone. Spirometry normal, not consistent with COPD despite smoking history. He is being sent again for evaluation for similar issues. Current symptoms consist of shortness of breath with activity. The degree of his limitation is apical portion of the findings on his pulmonary function testing. He has a chronic cough with sputum production mainly in the morning related to his smoking. He has wheezing. Current use of albuterol does help his respiratory symptoms but does not last. Prior use of longer acting bronchodilators in the past believed to cause worsening of his high blood pressure. He denies a history of recurrent bronchitis or pneumonia. He has not been hospitalized for his lung disease. He has not been able to quit smoking. Tried Chantix in the past but had allergic reaction and nicotine replacement resulted in chest pain and tachycardia. He has been having nocturnal awakenings due to shortness of breath. Some occasional ankle edema. He states that he snored in the past but is currently not snoring at least according to his . He has daily morning headaches. STOP BANG Questionnaire 1. Snoring Do you snore loudly (louder than talking or loud enough to be heard through closed doors)? NO 2. Tired Do you often feel tired, fatigued, or sleepy during daytime? YES 3. Observed Has anyone observed you stop breathing during your sleep? NO 4. Blood Pressure Do you have or are you being treated for high blood pressure? YES 5. BMI BMI more than 35 kg/m2? NO 6. Age Age over 50 yr old? YES 7. Neck circumference Neck circumference greater than 40 cm? NO 8. Gender Gender male? YES * Neck circumference is measured by staff High risk of OANH: answering yes to three or more items Low risk of OANH: answering yes to less than three items DATA: PFT: Review of pulmonary function test show no obstruction RESPIRATORY THERAPY ORAL EXHALED NITRIC OXIDE SERVICE DATE: 02/17/2022 SERVICE TIME: 8:29 AM Oral Exhaled Nitric Oxide measurement: 17.0 (ppb) PFT 2019: Labs: Component Ref Range & Units 13 d ago NT Pro BNP <125 pg/mL 526 High Component Ref Range & Units 13 d ago WBC 3.70 - 11.00 k/uL 8.73 RBC 4.20 - 6.00 m/uL 5.80 Hemoglobin 13.0 - 17.0 g/dL 17.4 High Hematocrit 39.0 - 51.0 % 50.7 MCV 80.0 - 100.0 fL 87.4 MCH 26.0 - 34.0 pg 30.0 MCHC 30.5 - 36.0 g/dL 34.3 RDW-CV 11.5 - 15.0 % 12.9 Platelet Count 150 - 400 k/uL 228 MPV 9.0 - 12.7 fL 10.0 Neut% % 69.9 Abs Neut 1.45 - 7.50 k/uL 6.10 Lymph% % 21.9 Abs Lymph 1.00 - 4.00 k/uL 1.91 Dickens% % 6.3 Abs Dickens <0.87 k/uL 0.55 Eosin% % 0.6 Abs Eosin <0.46 k/uL 0.05 Baso% % 1.0 Abs Baso <0.11 k/uL 0.09 Immature Gran % % 0.3 Abs Immature Gran <0.10 k/uL 0.03 NRBC /100 WBC 0.0 Absolute nRBC <0.01 k/uL <0.01 Diff Type Auto Diff Type Imaging / Diagnostic Studies: CXR [facility] 01/17/22: Reviewed and shows no abnormalities PAST MEDICAL HISTORY Diagnosis Date Coronary artery disease Seeing Tre previously Hypertension Non-compliant patient Right bundle branch block Tobacco use ALLERGIES Allergen Reactions Chantix [Vareniclin* Rash atorvastatin (LIPITOR) 80 mg tablet Take 0.5 tablets by mouth daily at bedtime. For cholesterol. metoprolol succinate ER (TOPROL XL) 100 mg Take 1 tablet by mouth once daily. losartan (COZAAR) 100 mg tablet Take 1 tablet by mouth once daily. aspirin 81 mg chewable tablet Take 1 tablet by mouth once daily. amLODIPine (NORVASC) 5 mg tablet Take 1 tablet by mouth once daily. multivitamin tablet Take 1 tablet by mouth once daily. Social History Tobacco Use Smoking status: Every Day Packs/day: 1.00 Years: 38.00 Pack years: 38.00 Types: Cigarettes Start date: 12/03/1977 Smokeless tobacco: Never Tobacco comments: Relapsed on/after only a few weeks Chantix. TO 12/03/18. 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 Fatigue HEENT: Denies nasal congestion/sinus symptoms, allergy problems. A.m. headaches EYES: No diplopia or blurry vision. CARDIOVASCULAR: No chest pain, palpitations, orthopnea, PND. Ankle edema PULM: See HPI GI: No dysphagia/odynophagia, problematic reflux, constipation, diarrhea, changes in stool habits : No urinary complaints, including dysuria, gross hematuria or pyuria. NEURO: No new balance problems, peripheral weakness/paresthesias or numbness of concern. MUSC-SKEL: No new joint pain, swelling, or erythema. PSY: No concerns regarding depression, anxiety INTEGUMENTARY: No new skin changes or rashes PHYSICAL EXAMINATION: Pulse 65 Resp 16 Ht 6' 3 (1.91m) Wt 231 lb (104.8kg) SpO2 100% BMI 28.87 kg/(m^2). General Appearance: Age-appropriate male, NAD Skin: Skin color, texture, turgor normal, no suspicious rashes or lesions. Head: Normocephalic, no masses, lesions, tenderness or abnormalities. Eyes: Sclera, conjunctiva normal Oropharynx: No oral lesions, Mallampati 4 Neck: No JVD, no masses, no thyromegaly Back: Normal chest configuration Lungs: Not labored, normal to percussion, diminished breath sounds, no wheezes or crackles Heart: Regular rate and rhythm, no murmurs or gallops Extremities: No edema, no clubbing Musculoskeletal: Some arthritis changes, no active synovitis Neurologic: Alert and oriented, no focal findings Lymph Nodes: No cervical lymphadenopathy and No supraclavicular lymphadenopathy. Assessment/Plan: 1. Shortness of breath -Degree of shortness of breath on proportion to subjective findings on pulmonary function testing -GOLD stage 0 COPD. Although patient does not have obstruction, symptomatology worth a trial of LAMA and continued as needed albuterol -Smoking cessation is paramount -Mild polycythemia suggestive of possible hypoxemia. Mild risk for OANH. Nocturnal oximetry screening 2. Cigarette smoker -Current 1 pack a day smoker without sequelae of COPD -Smoking cessation recommended -Referral to lung cancer screening clinic Mary Saavedra MD [facility] [place] documented in this encounter [facility] 02-17-2022 Nurse Note Intake information documented in the prior visit with JEAN Ricks today. documented in this encounter [facility] 02-09-2022 Miscellaneous Notes Reviewed. Marcella Roberson APRN.THOM Patient telephoned and made aware. States he would of had liked to wear it longer but his work informed him that he couldn't work with it on because they thought it could draw electricity. They aren't allowed to wear anything like that for safety reasons. Patient to follow up with cardiology on Feb 28. Brooke Kebede LPN Please call patient and let him know his ZIO patch did not show any acute findings, however limited date due to him only wearing one day. Marcella Roberson APRN.THOM documented in this encounter [facility] 02-04-2022 Miscellaneous Notes Pt called and is notified of providers message and instructions. Pt voices understanding. Sonam Rodriguez RN Rx sent for Lipitor 40 mg daily. Take as directed and call with side effects. Patient telephoned and made aware of results and recommendations below. Voices understanding. Is agreeable to restarting cholesterol medication. Please send to pharmacy. Brooke Kebede LPN Please call patient and let him know his hemoglobin is mildly elevated at 17.4- this is likely due to smoking. LDL bad cholesterol elevated. With hx of coronary artery disease recommend he restart his cholesterol medication. Please ask him if he has any left? If not and he is agreeable I will send to pharmacy. Blood sugar mildly elevated- recommend low carbohydrate diet as well as exercise at least 150 minutes per week.and will check A1c with his next labs. Marcella Roberson APRN.THOM documented in this encounter [facility] 02-03-2022 Miscellaneous Notes Pt called and is notified of providers message and instructions. Pt voices understanding. Sonam Rodriguez RN Message left for patient regarding provider's message. If he removed the device we will be unable to evaluate his palpitations. Recommend he follow up with cardiology as discussed with Marcella yesterday. Pt called and is notified of providers message. Pt reports he took the monitor off a little bit earlier and put it in the box.. Sonam Rodriguez RN These are the listed contraindications and warnings for Zio patch: CONTRAINDICATIONS Do not use the Zio XT monitor for patients with symptomatic episodes where instance variations in cardiac performance could result in immediate danger to the patient. Do not use the Zio XT monitor in combination with external cardiac defibrillators or high frequency surgical equipment near strong magnetic hutchinson or devices such as MRI. Do not use the Zio XT monitor on patients with neuro-stimulator, as it may disrupt the quality of ECG data. Do not use the Zio XT monitor on patients who do not have the competency to wear the device for the prescribed monitoring period. WARNINGS Do not use the Zio XT monitor on patients with known allergic reaction to adhesives or hydrogels or with a family history of adhesive skin allergies. Your patient may experience skin irritation. Do not reuse the Zio XT monitor on multiple patients. It is a single patient use device. Reuse will cause incorrect patient data and may experience skin irritation. I do not see anything about working near power. If his company is telling him this is not safe, then he will need to take that up with them. I have no medical indication listed for him to not work with this on. Pt called and is notified of providers message and instructions. 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 I told him they were probably thinking of a pacemaker or defibrillator, not a heart monitor. He said he told them exactly what it was, but he would fight with them. I let him know I would have the provider call him back and advise. Sonam Rodriguez, RN His heart monitor does not effect his ability to work. This is only to monitor his rhythm. It is not like a pacemaker or defibrillator. Patient's calls and states that patient's employer will not let him work with heart monitor on. Please review and advise, Rosalina Locke RN documented in this encounter [facility] 02-02-2022 Miscellaneous Notes Reviewed. Marcella Roberson APRN.CNP Pt and called and notified of providers message. thought provider had wanted him off work. I said the provider had written a letter that stated, I am working with Mr. Gustafson to get his blood pressure under control. He will require frequent appointments to myself and other providers to achieve this. . Provider has, discussed if he experiences, chest pain, ongoing palpitations increasing SOB from his baseline he needs to go to ER, verbalizes understanding. . Let the Pt know if he was have any changes to let the provider know, but Pt denied any accompanying symptoms aside from the fluttering heartbeats . Sonam Rodriguez RN I can't write a letter to just have him off work. Marcella Roberson APRN.CNP Patient's spouse calling for patient and states patient was seen today by Marcella Roberson. Patient asking if Marcella would write a note for his employer to allow him to have one week (7 days) off of work. Spouse states patient is eligible to receive sick pay for this. Patient or spouse will come in to pick letter up. Please call patient with update. Thank you. documented in this encounter [facility] 02-02-2022 Note HNO ID: [id number] Author: Brooke Kebede LPN Service: ? Author Type: LICENSED NURSE Type: Progress Notes Filed: 02/02/2022 9:48 AM Note Text: EVENT MONITOR DISPOSABLE PATCH INSTRUCTIONS Patient Name: Gonzales Echols [facility] Number: [id number] Skin prepped and cleansed with alcohol Patch secured to prepped area Monitor Activated Serial #: [id number] Patient Instructed: Prescribed order timeframe Bathing guidelines Usage of event button and diary documentation Return of monitor at the end of prescribed order Call with problems [phone] or [phone]. [phone] Patient expresses a good understanding of instructions Brooke Kebede LPN [facility] 02-02-2022 Note HNO ID: [id number] Author: Marcella Roberson APRN.PRODUCTION CLERK Service: ? Author Type: Nurse Practitioner Type: Progress Notes Filed: 02/02/2022 8:53 AM Note Text: 02/02/2022 Patient presents with: Blood Pressure: 2 week follow up SUBJECTIVE: This is a 61 year old, accompanied by , that is here today for Above Complaints.. Restrated on losartan and metoprolol at last visit for HTN. Has been taking medication as prescribed without side effects. Has been checking blood pressure at home nightly- the majority of readings still 180/90's. He reports last night his BP was 167/80. Reports he has noted some fluttering beats in his chest daily. Episodes can last a up to a minute but resolve. Denies accompanying diaphoresis, chest/jaw/back pain, nausea, vomiting, SOB or dyspnea. Also denies visual changes, slurred speech, confusion, facial drooping, extremity numbness, tingling, or weakness. PAST MEDICAL HISTORY Diagnosis Date COPD (chronic obstructive pulmonary disease) (HCC) Coronary artery disease Seeing Tre previously Hypertension Non-compliant patient Right bundle branch block Tobacco use ALLERGIES Chantix [Varenicline] MEDICATIONS Current Outpatient Medications Medication Sig metoprolol succinate ER (TOPROL XL) 50 mg 24 hr tablet Take 2 tablets by mouth once daily. losartan (COZAAR) 100 mg tablet Take 1 tablet by mouth once daily. aspirin 81 mg chewable tablet Take 1 tablet by mouth once daily. multivitamin tablet Take 1 tablet by mouth once daily. No current facility-administered medications for this visit. Medications and allergies reviewed by this provider. SOCIAL HISTORY Social History Tobacco Use Smoking status: Every Day Packs/day: 1.00 Years: 38.00 Pack years: 38.00 Types: Cigarettes Start date: 12/03/1977 Smokeless tobacco: Never Tobacco comments: Relapsed on/after only a few weeks Chantix. TO 12/03/18. Substance Use Topics Alcohol use: No Drug use: No REVIEW OF SYSTEMS All other reviewed and negative other than HPI. OBJECTIVE: BP 182/98 Pulse 67 Resp 18 Wt 109 kg (240 lb 3.2 oz) SpO2 100% BMI 29.25 kg/m? . Vital signs reviewed by this provider. APPEARANCE Well appearing, alert, in no acute distress, well-hydrated, well nourished. EYES conjunctiva and sclera normal. HEART RRR with normal S1 and S2, no murmurs, no gallops, no JVD appreciated LUNG clear to auscultation. No wheezes, rhonchi, or rales EXTREMITIES Extremities normal, No deformities, No skin discoloration, and No edema SKIN Skin color, texture, turgor normal, no suspicious rashes or lesions COVID-19 VACCINE(1) Never done PNEUMOCOCCAL(1 - PCV) Never done HIV SCREENING Never done BP CONTROLLED (<130/80) Never done ALPHA-1 ANTITRYPSIN DEFICIENCY SCREENING Never done DTAP,TDAP,TD(1 - Tdap) due on 12/29/2004 COLORECTAL CANCER SCREENING Never done LUNG CANCER SCREENING Never done SHINGRIX VACCINE(1 of 2) Never done LDL CHOLESTEROL due on 05/14/2017 PROSTATE CANCER SCREENING DISCUSSION Never done DIABETES SCREEN due on 05/14/2019 DEPRESSION ASSESSMENT Never done LIPID SCREEN due on 05/14/2021 INFLUENZA(1) due on 12/30/2021 ANNUAL PCP TEAM CHRONIC DISEASE VISIT due on 01/19/2023 SPIROMETRY Completed HEPATITIS C SCREENING Completed ASSESSMENT/PLAN: 1. Hypertension, essential - ICD9: 401.9, ICD10: I10 (primary diagnosis) - poor control - Continue current medication(s) - Begin amlodipine (Norvasc) - Encouraged dietary sodium restriction/DASH diet - Recommended regular aerobic exercise. - Recommend home blood pressure monitoring, to bring results in on next visit - Discussed need and benefit for weight loss. - Recheck in 2 weeks, sooner should new symptoms or problems arise. - Goal of BP <130/80 - Patient counselled on smoking cessation. - Recommend home or pharmacy blood pressure monitoring - Recommended no refined sugar, low refined starch, healthy oil intake (olive oil), healthy protein (fish) along the lines of the Mediterranean diet. - METOPROLOL SUCCINATE ER 100 MG TABLET,EXTENDED RELEASE 24 HR - LOSARTAN 100 MG TABLET - AMLODIPINE 5 MG TABLET - take BP daily and update me Monday with readings 2. 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, unspecified vessel or lesion type (HCC) - ICD9: 414.01, 413.9, ICD10: I25.119 - I have discussed with patient his EKG suggesting ischemia and the importance of making his follow-up with cardiology. Reinforced fact that untreated heart disease and HTN can lead to serious consequences including - I have discussed if he experiences, chest pain, ongoing palpitations increasing SOB from his baseline he needs to go to ER, verbalizes understanding - ASPIRIN 81 MG CHEWABLE TABLET 3. Palpitations - ICD9: 785.1, ICD10: R00.2 - plan as in #2 - ECG COMPLETE EKG Interpretation: RHYTHM: Normal sinus rhythm at 61 beats per minute AXIS: Normal axis I (more content not included)... [facility] 02-02-2022 Note HNO ID: [id number] Author: Carola White MD Service: Interventional Cardiology Author Type: Physician Type: Procedures Filed: 02/09/2022 1:07 PM Note Text: Patient Name: Gonzales Gustafson : 1960 Ordering Provider: Marcella Roberson Indication: R00.2 Palpitations Type of Monitor: Extended Monitoring-Zio Patch Enrollment Dates: 02/02/2022-02/03/[address] [facility] 02-02-2022 History of Present illness Narrative EVENT MONITOR DISPOSABLE PATCH INSTRUCTIONS Patient Name: Gonzales Echols [facility] Number: [id number] Skin prepped and cleansed with alcohol Patch secured to prepped area Monitor Activated Serial #: [id number] Patient Instructed: Prescribed order timeframe Bathing guidelines Usage of event button and diary documentation Return of monitor at the end of prescribed order Call with problems [phone] or [phone]. [phone] Patient expresses a good understanding of instructions Brooke Kebede LPN 02/02/2022 Patient presents with: Blood Pressure: 2 week follow up SUBJECTIVE: This is a 61 year old, accompanied by , that is here today for Above Complaints.. Restrated on losartan and metoprolol at last visit for HTN. Has been taking medication as prescribed without side effects. Has been checking blood pressure at home nightly- the majority of readings still 180/90's. He reports last night his BP was 167/80. Reports he has noted some fluttering beats in his chest daily. Episodes can last a up to a minute but resolve. Denies accompanying diaphoresis, chest/jaw/back pain, nausea, vomiting, SOB or dyspnea. Also denies visual changes, slurred speech, confusion, facial drooping, extremity numbness, tingling, or weakness. PAST MEDICAL HISTORY Diagnosis Date COPD (chronic obstructive pulmonary disease) (HCC) Coronary artery disease Seeing Tre previously Hypertension Non-compliant patient Right bundle branch block Tobacco use ALLERGIES Chantix [Varenicline] MEDICATIONS Current Outpatient Medications Medication Sig metoprolol succinate ER (TOPROL XL) 50 mg 24 hr tablet Take 2 tablets by mouth once daily. losartan (COZAAR) 100 mg tablet Take 1 tablet by mouth once daily. aspirin 81 mg chewable tablet Take 1 tablet by mouth once daily. multivitamin tablet Take 1 tablet by mouth once daily. No current facility-administered medications for this visit. Medications and allergies reviewed by this provider. SOCIAL HISTORY Social History Tobacco Use Smoking status: Every Day Packs/day: 1.00 Years: 38.00 Pack years: 38.00 Types: Cigarettes Start date: 12/03/1977 Smokeless tobacco: Never Tobacco comments: Relapsed on/after only a few weeks Chantix. TO 12/03/18. Substance Use Topics Alcohol use: No Drug use: No REVIEW OF SYSTEMS All other reviewed and negative other than HPI. OBJECTIVE: BP 182/98 Pulse 67 Resp 18 Wt 109 kg (240 lb 3.2 oz) SpO2 100% BMI 29.25 kg/m . Vital signs reviewed by this provider. APPEARANCE Well appearing, alert, in no acute distress, well-hydrated, well nourished. EYES conjunctiva and sclera normal. HEART RRR with normal S1 and S2, no murmurs, no gallops, no JVD appreciated LUNG clear to auscultation. No wheezes, rhonchi, or rales EXTREMITIES Extremities normal, No deformities, No skin discoloration, and No edema SKIN Skin color, texture, turgor normal, no suspicious rashes or lesions COVID-19 VACCINE(1) Never done PNEUMOCOCCAL(1 - PCV) Never done HIV SCREENING Never done BP CONTROLLED (<130/80) Never done ALPHA-1 ANTITRYPSIN DEFICIENCY SCREENING Never done DTAP,TDAP,TD(1 - Tdap) due on 12/29/2004 COLORECTAL CANCER SCREENING Never done LUNG CANCER SCREENING Never done SHINGRIX VACCINE(1 of 2) Never done LDL CHOLESTEROL due on 05/14/2017 PROSTATE CANCER SCREENING DISCUSSION Never done DIABETES SCREEN due on 05/14/2019 DEPRESSION ASSESSMENT Never done LIPID SCREEN due on 05/14/2021 INFLUENZA(1) due on 12/30/2021 ANNUAL PCP TEAM CHRONIC DISEASE VISIT due on 01/19/2023 SPIROMETRY Completed HEPATITIS C SCREENING Completed ASSESSMENT/PLAN: 1. Hypertension, essential - ICD9: 401.9, ICD10: I10 (primary diagnosis) - poor control - Continue current medication(s) - Begin amlodipine (Norvasc) - Encouraged dietary sodium restriction/DASH diet - Recommended regular aerobic exercise. - Recommend home blood pressure monitoring, to bring results in on next visit - Discussed need and benefit for weight loss. - Recheck in 2 weeks, sooner should new symptoms or problems arise. - Goal of BP <130/80 - Patient counselled on smoking cessation. - Recommend home or pharmacy blood pressure monitoring - Recommended no refined sugar, low refined starch, healthy oil intake (olive oil), healthy protein (fish) along the lines of the Mediterranean diet. - METOPROLOL SUCCINATE ER 100 MG TABLET,EXTENDED RELEASE 24 HR - LOSARTAN 100 MG TABLET - AMLODIPINE 5 MG TABLET - take BP daily and update me Monday with readings 2. 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, unspecified vessel or lesion type (HCC) - ICD9: 414.01, 413.9, ICD10: I25.119 - I have discussed with patient his EKG suggesting ischemia and the importance of making his follow-up with cardiology. Reinforced fact that untreated heart disease and HTN can lead to serious consequences including - I have discussed if he experiences, chest pain, ongoing palpitations increasing SOB from his baseline he needs to go to ER, verbalizes understanding - ASPIRIN 81 MG CHEWABLE TABLET 3. Palpitations - ICD9: 785.1, ICD10: R00.2 - plan as in #2 - ECG COMPLETE EKG Interpretation: RHYTHM: Normal sinus rhythm at 61 beats per minute AXIS: Normal axis INTERVALS: Normal [place] interval QRS COMPLEX: incomplete right bundle branch block ST SEGMENT: possible inferior infarct age undetermined. St & T wave abnormality, consider lateral ischemia QT INTERVAL: Normal COMPARED WITH PRIOR: unchanged - OUTSIDE VENDOR CARDIAC OUTPATIENT EXTENDED RHYTHM RECORDING (WITHOUT TELEMETRY) - XR CHEST 2V FRONTAL/LAT - TSH BLD Marcella Roberson APRN.CNP Prescription instructions reviewed with patient as applicable. Patient advised if symptoms do not improve or if symptoms worsen sooner, to contact their primary care physician. Potential red flag symptoms discussed with the patient. Reviewed appropriate action plan to take if red flag symptoms occur. Patient agreeable to treatment plan. I spent a total of 35 minutes on the date of the service which included preparing to see the patient, [id number] patient care, completing clinical documentation, obtaining and/or reviewing separately obtained history, performing a medically appropriate examination, counseling and educating the patient/family/caregiver, and ordering medications, tests, or procedures. documented in this encounter [facility] 01-19-2022 Note HNO ID: [id number] Author: Marcella Roberson APRN.CNP Service: ? Author Type: Nurse Practitioner Type: Progress Notes Filed: 01/19/2022 12:30 PM Note Text: 01/19/2022 Patient presents with: ED Follow-up: [facility] 01/17 for chest pain SUBJECTIVE: This is a 61 year old that is here today for Above Complaints. HOSPITAL/ER FOLLOW UP: Reason for visit: chest pain Which facility: [facility] Date of visit: 01/17/2022 Diagnosis: chest pain, HTN Testing done: EKG, chest pain, blood work, CXR Treatment given: labetalol and hydralazine Current symptoms: none Since ER visit has not had any more incidents of chest pain. Admits to SOB with exertion which is normal he says for him. Not checking Bps at home. No following up as recommended. Denies visual changes, headaches, lightheadedness, dizziness, slurred speech, facial drooping, confusion, extremity numbness, tingling, weakness, dyspnea, cough, wheezing, chest pain, palpitations or leg edema Hx of smoking 1 pack a day of cigarettes for the last 44 years ER records reviewed PAST MEDICAL HISTORY Diagnosis Date COPD (chronic obstructive pulmonary disease) (HCC) Coronary artery disease Seeing Tre previously Hypertension Non-compliant patient Right bundle branch block Tobacco use ALLERGIES Chantix [Varenicline] MEDICATIONS Current Outpatient Medications Medication Sig metoprolol succinate ER (TOPROL XL) 50 mg 24 hr tablet Take 50 mg by mouth once daily. hydroCHLOROthiazide 12.5 mg capsule Take 1 capsule by mouth once daily. losartan (COZAAR) 100 mg tablet Take 1 tablet by mouth once daily. ciprofloxacin-dexAMETHasone (CIPRODEX) 0.3-0.1 % otic suspension Use 4 Drops in the left ear twice daily. aspirin 81 mg chewable tablet Take 1 tablet by mouth once daily. multivitamin tablet Take 1 tablet by mouth once daily. No current facility-administered medications for this visit. Medications and allergies reviewed by this provider. SOCIAL HISTORY Social History Tobacco Use Smoking status: Every Day Packs/day: 1.00 Years: 38.00 Pack years: 38.00 Types: Cigarettes Start date: 12/03/1977 Smokeless tobacco: Never Tobacco comments: Relapsed on/after only a few weeks Chantix. TO 12/03/18. Substance Use Topics Alcohol use: No Drug use: No REVIEW OF SYSTEMS All other reviewed and negative other than HPI. OBJECTIVE: BP 166/92 Pulse (!) 58 Resp 18 Wt 109.3 kg (241 lb) SpO2 99% BMI 29.35 kg/m? . Vital signs reviewed by this provider. APPEARANCE Well appearing, alert, in no acute distress, well-hydrated, well nourished. EYES PERRLA, conjunctiva and sclera normal. HEART RRR with normal S1 and S2, no murmurs, no gallops, no JVD appreciated LUNG clear to auscultation. No wheezes, rhonchi, or rales EXTREMITIES Extremities normal, No deformities, No skin discoloration, and No edema SKIN Skin color, texture, turgor normal, no suspicious rashes or lesions to exposed skin COVID-19 VACCINE(1) Never done PNEUMOCOCCAL(1 - PCV) Never done HIV SCREENING Never done BP CONTROLLED (<130/80) Never done ALPHA-1 ANTITRYPSIN DEFICIENCY SCREENING Never done DTAP,TDAP,TD(1 - Tdap) due on 12/29/2004 COLORECTAL CANCER SCREENING Never done LUNG CANCER SCREENING Never done SHINGRIX VACCINE(1 of 2) Never done LDL CHOLESTEROL due on 05/14/2017 PROSTATE CANCER SCREENING DISCUSSION Never done DEPRESSION SCREENING due on 05/16/2018 DIABETES SCREEN due on 05/14/2019 LIPID SCREEN due on 05/14/2021 INFLUENZA(1) due on 12/30/2021 ANNUAL PCP TEAM CHRONIC DISEASE VISIT due on 01/19/2023 SPIROMETRY Completed HEPATITIS C SCREENING Completed ASSESSMENT/PLAN: 1. Hypertension, essential - ICD9: 401.9, ICD10: I10 (primary diagnosis) - noncompliance -- uncontrolled - Continue current medication(s) - Encouraged dietary sodium restriction/DASH diet - Recommended regular aerobic exercise. - Recommend home blood pressure monitoring, to bring results in on next visit - Discussed need and benefit for weight loss. - Recheck in 2 weeks, sooner should new symptoms or problems arise. - Reviewed risks of HTN and principles of treatment - Goal of BP <130/80 - Patient counselled on smoking cessation. - Recommend home or pharmacy blood pressure monitoring - Recommended no refined sugar, low refined starch, healthy oil intake (olive oil), healthy protein (fish) along the lines of the Mediterranean diet. - COMP METABOLIC PANEL - patient is to monitor blood pressure the next four days an update me on Monday with readings 2. 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, unspecified vessel or lesion type (HCC) - ICD9: 414.01, 413.9, ICD10: I25.119 - patient has not followed up in the past. I have discussed with him the risks of him not following up as recommended. With his hx I discussed with him if he does not complete recommended follow-up and testing this could result in stroke, heart attack (more content not included)... [facility] 01-19-2022 History of Present illness Narrative 01/19/2022 Patient presents with: ED Follow-up: [facility] 01/17 for chest pain SUBJECTIVE: This is a 61 year old that is here today for Above Complaints. HOSPITAL/ER FOLLOW UP: Reason for visit: chest pain Which facility: [facility] Date of visit: 01/17/2022 Diagnosis: chest pain, HTN Testing done: EKG, chest pain, blood work, CXR Treatment given: labetalol and hydralazine Current symptoms: none Since ER visit has not had any more incidents of chest pain. Admits to SOB with exertion which is normal he says for him. Not checking Bps at home. No following up as recommended. Denies visual changes, headaches, lightheadedness, dizziness, slurred speech, facial drooping, confusion, extremity numbness, tingling, weakness, dyspnea, cough, wheezing, chest pain, palpitations or leg edema Hx of smoking 1 pack a day of cigarettes for the last 44 years ER records reviewed PAST MEDICAL HISTORY Diagnosis Date COPD (chronic obstructive pulmonary disease) (HCC) Coronary artery disease Seeing Tre previously Hypertension Non-compliant patient Right bundle branch block Tobacco use ALLERGIES Chantix [Varenicline] MEDICATIONS Current Outpatient Medications Medication Sig metoprolol succinate ER (TOPROL XL) 50 mg 24 hr tablet Take 50 mg by mouth once daily. hydroCHLOROthiazide 12.5 mg capsule Take 1 capsule by mouth once daily. losartan (COZAAR) 100 mg tablet Take 1 tablet by mouth once daily. ciprofloxacin-dexAMETHasone (CIPRODEX) 0.3-0.1 % otic suspension Use 4 Drops in the left ear twice daily. aspirin 81 mg chewable tablet Take 1 tablet by mouth once daily. multivitamin tablet Take 1 tablet by mouth once daily. No current facility-administered medications for this visit. Medications and allergies reviewed by this provider. SOCIAL HISTORY Social History Tobacco Use Smoking status: Every Day Packs/day: 1.00 Years: 38.00 Pack years: 38.00 Types: Cigarettes Start date: 12/03/1977 Smokeless tobacco: Never Tobacco comments: Relapsed on/after only a few weeks Chantix. TO 12/03/18. Substance Use Topics Alcohol use: No Drug use: No REVIEW OF SYSTEMS All other reviewed and negative other than HPI. OBJECTIVE: BP 166/92 Pulse (!) 58 Resp 18 Wt 109.3 kg (241 lb) SpO2 99% BMI 29.35 kg/m . Vital signs reviewed by this provider. APPEARANCE Well appearing, alert, in no acute distress, well-hydrated, well nourished. EYES PERRLA, conjunctiva and sclera normal. HEART RRR with normal S1 and S2, no murmurs, no gallops, no JVD appreciated LUNG clear to auscultation. No wheezes, rhonchi, or rales EXTREMITIES Extremities normal, No deformities, No skin discoloration, and No edema SKIN Skin color, texture, turgor normal, no suspicious rashes or lesions to exposed skin COVID-19 VACCINE(1) Never done PNEUMOCOCCAL(1 - PCV) Never done HIV SCREENING Never done BP CONTROLLED (<130/80) Never done ALPHA-1 ANTITRYPSIN DEFICIENCY SCREENING Never done DTAP,TDAP,TD(1 - Tdap) due on 12/29/2004 COLORECTAL CANCER SCREENING Never done LUNG CANCER SCREENING Never done SHINGRIX VACCINE(1 of 2) Never done LDL CHOLESTEROL due on 05/14/2017 PROSTATE CANCER SCREENING DISCUSSION Never done DEPRESSION SCREENING due on 05/16/2018 DIABETES SCREEN due on 05/14/2019 LIPID SCREEN due on 05/14/2021 INFLUENZA(1) due on 12/30/2021 ANNUAL PCP TEAM CHRONIC DISEASE VISIT due on 01/19/2023 SPIROMETRY Completed HEPATITIS C SCREENING Completed ASSESSMENT/PLAN: 1. Hypertension, essential - ICD9: 401.9, ICD10: I10 (primary diagnosis) - noncompliance -- uncontrolled - Continue current medication(s) - Encouraged dietary sodium restriction/DASH diet - Recommended regular aerobic exercise. - Recommend home blood pressure monitoring, to bring results in on next visit - Discussed need and benefit for weight loss. - Recheck in 2 weeks, sooner should new symptoms or problems arise. - Reviewed risks of HTN and principles of treatment - Goal of BP <130/80 - Patient counselled on smoking cessation. - Recommend home or pharmacy blood pressure monitoring - Recommended no refined sugar, low refined starch, healthy oil intake (olive oil), healthy protein (fish) along the lines of the Mediterranean diet. - COMP METABOLIC PANEL - patient is to monitor blood pressure the next four days an update me on Monday with readings 2. 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, unspecified vessel or lesion type (HCC) - ICD9: 414.01, 413.9, ICD10: I25.119 - patient has not followed up in the past. I have discussed with him the risks of him not following up as recommended. With his hx I discussed with him if he does not complete recommended follow-up and testing this could result in stroke, heart attack and even . He is agree to making his follow-ups and complete testing - LIPID PANEL BASIC - COMP METABOLIC PANEL - CONSULT TO CARDIOLOGY - [place] CARDIAC PERF STRESS/PHARM 3. Elevated hemoglobin (HCC) - ICD9: 282.7, ICD10: D58.2 - CBC + DIFF 4. SOB (shortness of breath) - ICD9: 786.05, ICD10: R06.02 - possible related to COPD vs cardiac as well - CONSULT TO CARDIOLOGY - [place] CARDIAC PERF STRESS/PHARM 5. Chest pain, unspecified type - ICD9: 786.50, ICD10: R07.9 - plan as in in #2 - CONSULT TO CARDIOLOGY - [place] CARDIAC PERF STRESS/PHARM 6. Encounter for screening for lung cancer - ICD9: V76.0, ICD10: Z12.2 - CONSULT LUNG CANCER SCREENING CLINIC 7. Abnormal lung function test - ICD9: 794.2, ICD10: R94.2 - CONSULT TO PULMONARY MEDICINE 8. Tobacco abuse - ICD9: 305.1, ICD10: Z72.0 - Cessation encouraged. - Physiologic and physical aspects of tobacco addiction as well as strategies for quitting were discussed. - Counseling was given focusing on the harmful effects of this addiction especially given the patient's medical condition(s) which will be worsened because of the chemicals in tobacco. Marcella Roberson APRN.THOM Prescription instructions reviewed with patient as applicable. Patient advised if symptoms do not improve or if symptoms worsen sooner, to contact their primary care physician. Potential red flag symptoms discussed with the patient. Reviewed appropriate action plan to take if red flag symptoms occur. Patient agreeable to treatment plan. I spent a total of 40 minutes on the date of the service which included preparing to see the patient, [id number] patient care, completing clinical documentation, obtaining and/or reviewing separately obtained history, performing a medically appropriate examination, counseling and educating the patient/family/caregiver, and ordering medications, tests, or procedures. documented in this encounter [facility] 01-17-2022 Miscellaneous Notes Appointment scheduled for Mon at 8am with Marcella Roberson. Brooke Kebede LPN Please assist in making follow-up for patient for recent ER visit. Marcella Roberson APRN.CNP Received call from ER because patient thought I was his provider. Patient has Hx Of HTN, hyperlipidemia, Smoker and has been none compliant with medical care. 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 Patient claims to have been off his meds for over 6 months due to not liking the way he feels. Patient's BP was 256/123 and after getting labetalol and hydralazine his BP was done to 192/94. CMP was unremarkable and two high sensitivity Troponin's were not diagnostic and patient requesting to leave. Looking in chart patient last seen 02/25/2021 haven been off meds for 6+ months. Was restarted on BP meds and was to f/u for a NV on 03/04/2021 and see PCP on 03/16/2021 and No Showed to both. He also No Showed to cardiology on 04/01/2021. Patient has not been seen in the office since. Advised ER provider to send patient home on Cozaar 100 mg a day along with metoprolol ER 50 mg a day and ASA 81 mg a day. Also asked him to have patient make a f/u with PCP or dyad for ER f/u. 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, unspecified vessel or lesion type (HCC) [facility] Diagnosis SOB (shortness of breath) Shortness of breath [facility] Diagnosis SOB (shortness of breath)- Primary Shortness of breath Cigarette smoker Tobacco use disorder documented in this encounter [facility] note* Diagnosis Hypertension, essential Unspecified essential hypertension documented in this encounter [facility] note* Diagnosis Chest pain, unspecified type- Primary SOB (shortness of breath) Shortness of breath documented in this encounter [facility] note* Diagnosis Hypertension, essential Unspecified essential hypertension documented in this encounter [facility] note* Diagnosis Hypertension, essential- Primary Unspecified essential hypertension 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, unspecified vessel or lesion type (HCC) documented in this encounter [facility] note* Diagnosis Coronary artery disease involving lower brule coronary artery of lower brule heart with unstable angina pectoris (HCC)- Primary Primary hypertension Unspecified essential hypertension 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, unspecified vessel or lesion type (HCC) SOB (shortness of breath) Shortness of breath Chest pain, unspecified type Unstable angina (HCC) Intermediate coronary syndrome ACS (acute coronary syndrome) (HCC) Intermediate coronary syndrome documented in this encounter [facility] note* Diagnosis 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, unspecified vessel or lesion type (HCC) SOB (shortness of breath) Shortness of breath documented in this encounter [facility] note* Diagnosis Coronary artery disease involving lower brule coronary artery of lower brule heart with unstable angina pectoris (HCC)- Primary History of coronary artery stent placement Postsurgical percutaneous transluminal coronary angioplasty status documented in this encounter [facility] note* Diagnosis 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, unspecified vessel or lesion type (HCC)- Primary S/P angioplasty with stent Other postprocedural status Hypertension, essential Unspecified essential hypertension Tobacco use Tobacco use disorder Non-compliant patient Personal history of noncompliance with medical treatment, presenting hazards to health documented in this encounter [facility] note* Diagnosis Hypertension, essential Unspecified essential hypertension documented in this encounter [facility] for referral (narrative)* Outpatient Procedure (Routine) - Closed Specialty Diagnoses / Procedures Referred By Contac t Referred To [facility] Diagnoses Palpitations Procedures ECG COMPLETE ECG ROUTINE ECG W/LEAST 12 LDS W/I&R Marcella Roberson APRN.PRODUCTION CLERK [address] [place] [address] [facility] [place] [address] [place] [address] Referral ID Status Reason Start Date Expiration Date V isits Requested Visits Authorized [id number] Closed Auto-Generate d Referral 02/02/2022 04/30/2022 1 1 [facility] for referral (narrative)* Outpatient Procedure (Routine) - Closed Specialty Diagnoses / Procedures Referred By Contac t Referred To Contact [facility] Diagnoses SOB (shortness of breath) Procedures NITRIC OXIDE, EXHALED NITRIC OXIDE GAS DETERMINATION Mary Saavedra MD [address] [place] [address] [address] Referral ID Status Reason Start Date Expiration Date V isits Requested Visits Authorized [id number] Closed Auto-Generate d Referral 02/17/2022 04/30/2022 1 1 * Outpatient Procedure (Routine) - Closed Specialty Diagnoses / Procedures Referred By Contac t Referred To Contact [facility] Diagnoses SOB (shortness of breath) Procedures SPIROMETRY WITH DILATOR IF OBSTRUCTED BRNCDILAT RSPSE SPMTRY PRE&POST-BRNCDILAT ADMMary Feliciano MD [address] [place] [address] [address] Referral ID Status Reason Start Date Expiration Date V isits Requested Visits Authorized [id number] Closed Auto-Generate d Referral 02/17/2022 04/30/2022 1 1 [facility] for referral (narrative)* Outpatient Procedure (Routine) - Pending Review Specialty Diagnoses / Procedures Referred By Contac t Referred To [facility] Diagnoses 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, unspecified vessel or lesion type (HCC) SOB (shortness of breath) Procedures ECHO ECHO TTHRC R-T 2D W/WOM-MODE COMPL SPEC&COLR D Scott Lott MD [address] [place] [address] [facility] [address] [address] Referral ID Status Reason Start Date Expiration Date Visits Requested Visits Authorized [id number] Pending Review Auto-Generat ed Referral 03/23/2023 1 1 * Outpatient Procedure (Routine) - Closed Specialty Diagnoses / Procedures Referred By Contac t Referred To Contact [facility] [place] Diagnoses 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, unspecified vessel or lesion type (HCC) Procedures ECG COMPLETE ECG ROUTINE ECG W/LEAST 12 LDS W/I&R Scott Lott MD [address] [place] [address] [facility] [place] [id number] [place] [id number] Referral ID Status Reason Start Date Expiration Date V isits Requested Visits Authorized [id number] Closed Auto-Generate d Referral 03/23/2022 03/23/2023 1 1 [facility] for referral (narrative)* Outpatient Procedure (Routine) - Closed Specialty Diagnoses / Procedures Referred By Contac t Referred To Contact [facility] Diagnoses 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, unspecified vessel or lesion type (HCC) SOB (shortness of breath) Procedures ECHO ECHO TTHRC R-T 2D W/WOM-MODE COMPL SPEC&COLR Scott Melara MD [address] [place] [address] [facility] [address] [address] Referral ID Status Reason Start Date Expiration Date V isits Requested Visits Authorized [id number] Closed Auto-Generate d Referral 03/30/2022 04/30/2022 1 1 ENCIA [facility] for visit Narrative* Outpatient Procedure (Routine) - Closed Specialty Diagnoses / Procedures Referred By Nathanael reynolds Referred To [facility] Diagnoses 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, unspecified vessel or lesion type (HCC) SOB (shortness of breath) Procedures ECHO ECHO TTHRC R-T 2D W/WOM-MODE COMPL SPEC&COLR D Scott Lott MD [address] [place] [address] [facility] [place] [address] [place] [address] Referral ID Status Reason Start Date Expiration Date V isits Requested Visits Authorized [id number] Closed Auto-Generate d Referral 03/30/2022 04/30/2022 1 1 [facility] Summary Purpose Family History No Family History Records FoundNo Family History Records FoundNo Family History Records FoundNo Family History Records Found Advance Directives No Advanced Directives Records FoundNo Advanced Directives Records FoundNo Advanced Directives Records FoundNo Advanced Directives Records Found Reason for Referral Specialty Diagnoses / Procedures Referred By Nathanael reynolds Referred To Contact Diagnoses Encounter for screening for lung cancer Procedures CONSULT LUNG CANCER SCREENING CLINIC Podlogar, Marcella, SPOOL FIXER.PRODUCTION CLERK [address] [place] [address] Referral ID Status Reason Start Date Expiration Date Visits Requested Visits Authorized [id number] Ref Not Required PCP Requested Referral 01/19/2022 04/19/2022 1 1 Specialty Diagnoses / Procedures Referred By Nathanael reynolds Referred To Contact [facility] Diagnoses 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, unspecified vessel or lesion type (HCC) SOB (shortness of breath) Chest pain, unspecified type Procedures [place] CARDIAC PERF STRESS/PHARM MYOCARDIAL SPECT MULTIPLE STUDIES PodlogarMarcella APRN.PRODUCTION CLERK [address] [place] [address] [facility] [address] [place] [address] Referral ID Status Reason Start Date Expiration Date Visits Requested Visits Authorized [id number] Pending Review Auto-Generat ed Referral 01/19/2022 02/18/2023 1 1 Specialty Diagnoses / Procedures Referred By Contac t Referred To Contact Cardiology Diagnoses 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, unspecified vessel or lesion type (HCC) SOB (shortness of breath) Chest pain, unspecified type Procedures CONSULT TO CARDIOLOGY OFFICE/OUTPATIENT [facility] HIGH MDM 60-74 MINUTES PodlogMarcella smallwood APRN.PRODUCTION CLERK [address] [place] [address] Referral ID Status Reason Start Date Expiration Date Visits Requested Visits Authorized [id number] Authorized PCP Requested Referral 01/19/2022 01/19/2023 1 1 Health Concerns Infection Onset Date Last Indicated Resolved Time COVID-19 Rule-Out 03/31/2022 03/31/2022 03/31/2022 3:07 PM EST Infection Onset Date Last Indicated Resolved Time COVID-19 Rule-Out 03/31/2022 03/31/2022 04/01/2022 2:02 AM EST Additional Source Comments (unrecognized sect ion and content) No Status Records FoundNo Status Records FoundNo Status Records FoundNo Status Records Found INFORMATION SOURCE (unrecogn ized section and content) DATE CREATED AUTHOR AUTHOR'S ORGANIZ ATION 04/07/2022 [facility] DATE CREATED AUTHOR AUTHOR'S ORGANIZ ATION 04/22/2022 [facility] DATE CREATED AUTHOR AUTHOR'S ORGANIZ ATION 05/24/[address] [facility] Source Comments (unrecognize d section and content) In the event this informatio n is protected by the Federal Confidentiality of Alcohol and Drug Abuse Patient Records regulations: The Federal rules restrict any use of the information to criminally investigate or prosecute any alcohol or drug abuse patient.[facility] the event this information is protected by the Federal Confidentiality of Alcohol and Drug Abuse Patient Records regulations: The Federal rules restrict any use of the information to criminally investigate or prosecute any alcohol or drug abuse patient.[facility] the event this information is protected by the Federal Confidentiality of Alcohol and Drug Abuse Patient Records regulations: The Federal rules restrict any use of the information to criminally investigate or prosecute any alcohol or drug abuse patient.[facility] the event this information is protected by the Federal Confidentiality of Alcohol and Drug Abuse Patient Records regulations: The Federal rules restrict any use of the information to criminally investigate or prosecute any alcohol or drug abuse patient.[facility] Center[facility] the event this information is protected by the Federal Confidentiality of Alcohol and Drug Abuse Patient Records regulations: The Federal rules restrict any use of the information to criminally investigate or prosecute any alcohol or drug abuse patient.[facility] Center[facility] the event this information is protected by the Federal Confidentiality of Alcohol and Drug Abuse Patient Records regulations: The Federal rules restrict any use of the information to criminally investigate or prosecute any alcohol or drug abuse patient.[facility] Center[facility] the event this information is protected by the Federal Confidentiality of Alcohol and Drug Abuse Patient Records regulations: The Federal rules restrict any use of the information to criminally investigate or prosecute any alcohol or drug abuse patient.[facility] Center[facility] the event this information is protected by the Federal Confidentiality of Alcohol and Drug Abuse Patient Records regulations: The Federal rules restrict any use of the information to criminally investigate or prosecute any alcohol or drug abuse patient.[facility] Center[facility] the event this information is protected by the Federal Confidentiality of Alcohol and Drug Abuse Patient Records regulations: The Federal rules restrict any use of the information to criminally investigate or prosecute any alcohol or drug abuse patient.[facility] the event this information is protected by the Federal Confidentiality of Alcohol and Drug Abuse Patient Records regulations: The Federal rules restrict any use of the information to criminally investigate or prosecute any alcohol or drug abuse patient.[facility] the event this information is protected by the Federal Confidentiality of Alcohol and Drug Abuse Patient Records regulations: The Federal rules restrict any use of the information to criminally investigate or prosecute any alcohol or drug abuse patient.[facility] the event this information is protected by the Federal Confidentiality of Alcohol and Drug Abuse Patient Records regulations: The Federal rules restrict any use of the information to criminally investigate or prosecute any alcohol or drug abuse patient.[facility] the event this information is protected by the Federal Confidentiality of Alcohol and Drug Abuse Patient Records regulations: The Federal rules restrict any use of the information to criminally investigate or prosecute any alcohol or drug abuse patient.[facility] Center[facility] the event this information is protected by the Federal Confidentiality of Alcohol and Drug Abuse Patient Records regulations: The Federal rules restrict any use of the information to criminally investigate or prosecute any alcohol or drug abuse patient.[facility] Center[facility] the event this information is protected by the Federal Confidentiality of Alcohol and Drug Abuse Patient Records regulations: The Federal rules restrict any use of the information to criminally investigate or prosecute any alcohol or drug abuse patient.[facility] Center[facility] the event this information is protected by the Federal Confidentiality of Alcohol and Drug Abuse Patient Records regulations: The Federal rules restrict any use of the information to criminally investigate or prosecute any alcohol or drug abuse patient.[facility] Center[facility] the event this information is protected by the Federal Confidentiality of Alcohol and Drug Abuse Patient Records regulations: The Federal rules restrict any use of the information to criminally investigate or prosecute any alcohol or drug abuse patient.[facility] CenterIn the event this information is protected by the Federal Confidentiality of Alcohol and Drug Abuse Patient Records regulations: The Federal rules restrict any use of the information to criminally investigate or prosecute any alcohol or drug abuse patient.[facility] CenterIn the event this information is protected by the Federal Confidentiality of Alcohol and Drug Abuse Patient Records regulations: The Federal rules restrict any use of the information to criminally investigate or prosecute any alcohol or drug abuse patient.[facility] CenterIn the event this information is protected by the Federal Confidentiality of Alcohol and Drug Abuse Patient Records regulations: The Federal rules restrict any use of the information to criminally investigate or prosecute any alcohol or drug abuse patient.[facility] Center[facility] the event this information is protected by the Federal Confidentiality of Alcohol and Drug Abuse Patient Records regulations: The Federal rules restrict any use of the information to criminally investigate or prosecute any alcohol or drug abuse patient.[facility] CenterIn the event this information is protected by the Federal Confidentiality of Alcohol and Drug Abuse Patient Records regulations: The Federal rules restrict any use of the information to criminally investigate or prosecute any alcohol or drug abuse patient.[facility] CenterIn the event this information is protected by the Federal Confidentiality of Alcohol and Drug Abuse Patient Records regulations: The Federal rules restrict any use of the information to criminally investigate or prosecute any alcohol or drug abuse patient.[facility] CenterIn the event this information is protected by the Federal Confidentiality of Alcohol and Drug Abuse Patient Records regulations: The Federal rules restrict any use of the information to criminally investigate or prosecute any alcohol or drug abuse patient.[facility] CenterIn the event this information is protected by the Federal Confidentiality of Alcohol and Drug Abuse Patient Records regulations: The Federal rules restrict any use of the information to criminally investigate or prosecute any alcohol or drug abuse patient.[facility] CenterIn the event this information is protected by the Federal Confidentiality of Alcohol and Drug Abuse Patient Records regulations: The Federal rules restrict any use of the information to criminally investigate or prosecute any alcohol or drug abuse patient.[facility] CenterIn the event this information is protected by the Federal Confidentiality of Alcohol and Drug Abuse Patient Records regulations: The Federal rules restrict any use of the information to criminally investigate or prosecute any alcohol or drug abuse patient.[facility] CenterIn the event this information is protected by the Federal Confidentiality of Alcohol and Drug Abuse Patient Records regulations: The Federal rules restrict any use of the information to criminally investigate or prosecute any alcohol or drug abuse patient.[facility] CenterIn the event this information is protected by the Federal Confidentiality of Alcohol and Drug Abuse Patient Records regulations: The Federal rules restrict any use of the information to criminally investigate or prosecute any alcohol or drug abuse patient.[facility] CenterIn the event this information is protected by the Federal Confidentiality of Alcohol and Drug Abuse Patient Records regulations: The Federal rules restrict any use of the information to criminally investigate or prosecute any alcohol or drug abuse patient.[facility] CenterIn the event this information is protected by the Federal Confidentiality of Alcohol and Drug Abuse Patient Records regulations: The Federal rules restrict any use of the information to criminally investigate or prosecute any alcohol or drug abuse patient.[facility] Reason for Visit (unrecogniz ed section and content) Reason Comments ED Follow-up [facility] 01/17 for chest p ain Reason Comments Blood Pressure 2 week follow up Reason Comments Patient Request Reason Comments Results Medication Update Reason Comments Spirometry Specialty Diagnoses / Procedures Referred By Contac t Referred To Contact [facility] Diagnoses SOB (shortness of breath) Procedures NITRIC OXIDE, EXHALED NITRIC OXIDE GAS DETERMINATION Mary Saavedra MD [address] [place] [address] [facility] [place] [address] [place] [address] Referral ID Status Reason Start Date Expiration Date V isits Requested Visits Authorized [id number] Closed Auto-Generate d Referral 02/17/2022 04/30/2022 1 1 Reason Comments New Patient Shortness of Breath Reason Onset Date Comments Refill Request 02/21/2022 Reason Comments Orders Reason Comments Results Reason Comments Patient Question Reason Comments Blood Pressure Check Reason Onset Date Comments Refill Request 03/02/2022 Reason Comments Consult Coronary Artery Dise ase, Shortness of Breath, chest pain Specialty Diagnoses / Procedures Referred By Contac t Referred To Contact Cardiology Diagnoses 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, unspecified vessel or lesion type (HCC) SOB (shortness of breath) Chest pain, unspecified type Procedures CONSULT TO CARDIOLOGY OFFICE/OUTPATIENT NEW HIGH MDM 60-74 MINUTES Marcella Roberson APRN.[facility] [address] [place] [address] Referral ID Status Reason Start Date Expiration Date V isits Requested Visits Authorized [id number] Closed PCP Requested Referral 01/19/2022 01/19/2023 1 1 Reason Comments 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 Reason Onset Date Comments Transition Of Care 04/01/2022 TCM initial o utreach-dc'd from [facility] 03/31/22-left AMA Reason Comments Cardiac Rehab Referral Reason Comments Hospital F/U Transition Of Care Reason Comments Cardiac Rehab Reason Comments Return To Work Letter Reason Comments Refill Request Care Teams (unrecognized sec tion and content) Monument Letterer Relationship Specialty Start Date End Date Nehemiah Jacob MD [address] [place], [place] [id number] PCP - General Family Medicine 05/16/16 Monument Letterer Relationship Specialty Start Date End Date Nehemiah Jacob MD [address] [place], [place] [id number] PCP - General Family Medicine 05/16/16 Monument Letterer Relationship Specialty Start Date End Date Nehemiah Jacob MD [address] [place], [place] [id number] PCP - General Family Medicine 05/16/16 Monument Letterer Relationship Specialty Start Date End Date Nehemiah Jacob MD [address] [place] [address] PCP - General Family Medicine 05/16/16 Monument Letterer Relationship Specialty Start Date End Date Nehemiah Jacob MD [address] [place] [address] PCP - General Family Medicine 05/16/16 Monument Letterer Relationship Specialty Start Date End Date Nehemiah Jacob MD [address] [place] [address] PCP - General Family Medicine 05/16/16 Monument Letterer Relationship Specialty Start Date End Date Nehemiah Jacob MD [address] [place] [address] PCP - General Family Medicine 05/16/16 Monument Letterer Relationship Specialty Start Date End Date Nehemiah Jacob MD [address] [place] [address] PCP - General Family Medicine 05/16/16 Monument Letterer Relationship Specialty Start Date End Date Nehemiah Jacob MD [address] [place] [address] PCP - General Family Medicine 05/16/16 Monument Letterer Relationship Specialty Start Date End Date Nehemiah Jacob MD [address] [place] [address] PCP - General Family Medicine 05/16/16 Monument Letterer Relationship Specialty Start Date End Date Nehemiah Jacob MD [address] [place] [address] PCP - General Family Medicine 05/16/16 Monument Letterer Relationship Specialty Start Date End Date Nehemiah Jacob MD [address] [place] [address] PCP - General Family Medicine 05/16/16 Monument Letterer Relationship Specialty Start Date End Date Nehemiah Jacob MD [address] [place] [address] PCP - General Family Medicine 05/16/16 Monument Letterer Relationship Specialty Start Date End Date Nehemiah Jacob MD [address] [place] [address] PCP - General Family Medicine 05/16/16 Monument Letterer Relationship Specialty Start Date End Date Nehemiah Jacob MD [address] [place] [address] PCP - General Family Medicine 05/16/16 Monument Letterer Relationship Specialty Start Date End Date Nehemiah Jacob MD [address] [place] [address] PCP - General Family Medicine 05/16/16 Monument Letterer Relationship Specialty Start Date End Date Nehemiah Jacob MD [address] [place] [address] PCP - General Family Medicine 05/16/16 Monument Letterer Relationship Specialty Start Date End Date Nehemiah Jacob MD [address] [place] [address] PCP - General Family Medicine 05/16/16 Monument Letterer Relationship Specialty Start Date End Date Nehemiah Jacob MD [address] [place] [address] PCP - General Family Medicine 05/16/16 Monument Letterer Relationship Specialty Start Date End Date Nehemiah Jacob MD [address] [place] [address] PCP - General Family Medicine 05/16/16 Monument Letterer Relationship Specialty Start Date End Date Nehemiah Jacob MD [address] [place] [address] PCP - General Family Medicine 05/16/16 FOR RECORDS PERTAINING TO PATIENTS WHO ARE OR HAVE BEEN ENROLLED IN A CHEMICAL DEPENDENCY/SUBSTANCEABUSE PROGRAM, SOME INFORMATION MAY BE OMITTED. This clinical summary was aggregated from multiple sources. Caution should be exercised in using it in the provision of clinical care. This summary normalizes information from multiple sources, and as a consequence, information in this document may materially change the coding, format and clinical context of patient data. In addition, data may be omitted in some cases. CLINICAL DECISIONS SHOULD BE BASED ON THE PRIMARY CLINICAL RECORDS. [employer] provides no warranty or guarantee of the accuracy or completeness of information in this document.
[2023-07-13] VITALS (12 sets, daily range): BP systolic 121–163; BP diastolic 73–98; PULSE 53–90; RESP 12–20; TEMP 36.4–36.5; O2SAT 94–98; BMI 29.7
--- NOTE | 2023-07-13 00:52 | HP.PCM.HOS_ITS ---
[facility] - General General Date of Admission: 07/13/23 Date of Service: 07/13/23 Chief Complaint: Chest Pain. HPI Narrative GONZALES GUSTAFSON, is a 62 M with a past medical history of essential hypertension, hyperlipidemia, overweight; with BMI of 29.9 this admission, ongoing tobacco abuse; ~3 ppd with subsequent COPD, history of CAD; s/p stent (with patient reporting that his previous discount clerk told him most of the left side of his heart was ), history of blindness in the right eye, chronic RBBB, history of bilateral external otitis media and history of medical noncompliance with patient not having taken his antiplatelet/cardiac medications for the past ~3 months after losing his job who presents to [facility] ER comp laining of chest pain. Mr. Gustafson reports his symptoms began approximately 1 day prior to admission with the abrupt onset of chest pain that was substernal, pressure-like, severe and non-radiating accompanied by a feeling of impending doom and because he could not breathe with nothing seeming to make the pain better and exertion making it worse. He additionally states that his blood pressure machine at home just reads high because he has not had his blood pressure medications in approximately 3 months apparently due to issues relating to the cost. Then in the evening just prior to coming him he had his particularly severe bout of chest pain with intense shortness of breath that was worse than all his previous episodes and was persisting with his blood pressure noted to be 235/135 mmHg present on admission. He denies associated fever, chills, nausea or vomiting. In the ER he was noted to have an elevated initial troponin of 458 pg/mL followed by a second troponin trending upward to 723 pg/mL consistent with non-ST elevation ND complicated by clinical evidence of uncontrolled hypertension due to medical noncompliance in the setting of ongoing tobacco abuse and he was then admitted to the PCU for ongoing care for stay that is expected to be greater than 48 hours. [facility] Medical History Arthritis Atherosclerotic heart disease [place] coronary artery w/angina pectoris Cellulitis of left elbow COPD (chronic obstructive pulmonary disease) Essential (primary) hypertension Heart disease Right bundle branch block SOB (shortness of breath) Stomach ulcer Uncontrolled hypertension Home Medications aspirin 81 mg tablet,delayed release 81 mg PO DAILY #30 tabs 01/17/22 [Rx Last Taken Unknown] losartan 100 mg tablet (Cozaar) 100 mg PO DAILY #30 tabs 01/17/22 [Rx Last Taken Unknown] metoprolol succinate 50 mg tablet,extended release 24 hr 50 mg PO DAILY #30 tabs 01/17/22 [Rx Last Taken Unknown] Allergy/AdvReac Type Severity Reaction Status Date / Time No Known Allergies Allergy Verified 01/17/22 09:35 Family History Mother Cancer Father Hypertension Diabetes Brother Hypertension COPD (chronic obstructive pulmonary disease) CAD (coronary artery disease) Surgical History History of left heart catheterization Social History Smoking Status: Current every day smoker tobacco type: cigarettes alcohol intake: never substance use type: does not use ROS ROS Narrative Review of systems: General: Patient denies fever or chills. HENT: Denies headache, denies stuffy nose, denies sore throat EYES: Patient is chronically blind in his right eye. He denies changes in vision or discharge from eyes Resp: Patient admits to both shortness of breath at rest and cough with severe dyspnea on exertion. Cardiac: Patient admits to chest pain earlier but is chest pain-free now. He also denies palpitations or heart racing. GI: Denies abdominal pain, denies changes in bowel, had some nausea : Denies changes in urination Extremity: Denies swelling Musculoskeletal: Feels somewhat generally weak and unwell but denies back pain or myalgias Neuro: Denies any numbness/tingling Heme: Patient admits to easy bleeding and easy bruisability. Skin: Denies rashes Psychiatric: No complaints voiced related to uncontrolled depression or anxiety. Endocrine: No polyuria, polydipsia or polyphagia. The rest of the 14 point ROS was negative except for positives in HPI. Vital Signs Vital Signs Vital Signs: 07/12/23 21:41 07/12/23 21:41 07/12/23 21:44 Temperature 97.8 F Temperature Source Oral Pulse Rate 93 96 Respiratory Rate 18 17 Respiratory Effort Normal Non-Labored Blood Pressure 235/135 H Blood Pressure Mean 168 Pulse Ox 98 97 Oxygen Delivery Method Room Air Room Air 07/12/23 22:15 07/12/23 22:00 07/12/23 22:30 Temperature Temperature Source Pulse Rate 86 90 86 Respiratory Rate 16 Respiratory Effort Blood Pressure 234/117 H 247/121 H 215/99 H Blood Pressure Mean 158 132 Pulse Ox 96 Oxygen Delivery Method 07/12/23 22:45 07/12/23 23:15 07/12/23 23:59 Temperature 97.7 F L Temperature Source Pulse Rate 77 63 Respiratory Rate 20 H 12 Respiratory Effort Blood Pressure 221/103 H 182/88 H 182/88 H Blood Pressure Mean 135 115 119 Pulse Ox 95 97 Oxygen Delivery Method 07/12/23 23:30 07/12/23 23:45 07/13/23 00:00 Temperature Temperature Source Pulse Rate 69 62 62 Respiratory Rate 14 7 L 16 Respiratory Effort Blood Pressure 176/88 H 173/101 H 159/98 H Blood Pressure Mean 112 118 115 Pulse Ox 96 Oxygen Delivery Method Weight Weight: 245 lb 12.8 oz Body Mass Index (BMI) 29.9 Physical Exam Const alert, oriented x3 and no apparent distress General Appearance: cooperative HEENT normocephalic, head/scalp atraumatic, hearing grossly normal bilaterally and moist oral mucous membranes Eyes PERRL and EOMs intact bilaterally Neck no lymphadenopathy and supple Resp normal respiratory effort, no retractions, no use of accessory muscles and clear to auscultation bilaterally Cardio regular rate and regular rhythm GI normal to inspection, nondistended, normoactive bowel sounds, soft to palpation, non-tender and non-distended Extremity normal to inspection and full ROM Skin Skin Narrative: Patient has no evidence of rash. Neuro oriented x3, CN's II-XII intact bilaterally, moves all extremities and no focal motor deficits Sensorium / Orientation: awake, alert, oriented to person, oriented to place and oriented to time Speech: speech normal Motor Exam: strength 5/5 throughout Psych affect normal Results Medical Records Data Attestation: I reviewed the patient's medical records Lab / Micro Data Attestation: I reviewed the patient's lab results. 07/12/23 22:10 07/12/23 22:10 Labs: Laboratory Results - last 24 hr 07/12/23 22:10: WBC 8.9, RBC 5.66, Hgb 16.9 H, Hct 47.2, MCV 83.4, MCH 29.9, MCHC 35.8, RDW Std Deviation 40.4, RDW Coeff of Juan [place] 13.5, Plt Count 192, MPV 9.0, Immature Gran % (Auto) 0.600, Neut % (Auto) 61.7, Lymph % (Auto) 26.6, [place] % (Auto) 7.1, Eos % (Auto) 2.5, Baso % (Auto) 1.5 H, Absolute Neuts (auto) 5.5, Absolute Lymphs (auto) 2.36, Nucleated RBC % 0, PT 13.6, INR 1.0, APTT 30.7, D-Dimer Quant (PE/DVT) 0.42, Sodium 139, Potassium 3.5, Chloride 107, Carbon Dioxide 25.0, Anion Gap 7, BUN 17, Creatinine 1.18, Estim Creat Clear Calc 91.03, Est GFR (MDRD) Af Amer 81, Est GFR (MDRD) Non-Af 67, BUN/Creatinine Ratio 14.4, Glucose 195 H, Calcium 8.6, Magnesium 2.1, Troponin I High Sens 458 H* Imaging Radiology Impression Chest X-Ray 07/12/23 22:12 IMPRESSION: No radiographic evidence of acute cardiopulmonary disease. Electronically Signed: Kelley More MD at 23:31 EDT , Assessment & Plan Assessment/Plan (1) NSTEMI, initial episode of care: (2) Uncontrolled hypertension: (3) Tobacco abuse disorder: (4) Medical non-compliance: PLAN: Plan 1. NSTEMI; evidenced by elevated initial troponin of 458 pg/mL present on admission with second troponin trending upward to 723 pg/mL in the setting of a known history of CAD; s/p stent - Admit to PCU. Start ECASA, Plavix, statin and full-dose Lovenox plus prn SL NTG. Check echocardiogram to evaluate LVEF. Give Tylenol prn for [id number] (level 1-5/10) pain or fever. Give Morphine prn for severe (level 6-10/10) pain. Finally, we will consult the discount clerk on-call to see this patient on-rounds in the AM for further recommendations regarding LHC in the AM with help appreciated in advance. 2. Uncontrolled Hypertension due to Medical Noncompliance likely precipitating #1 - Restart home regimen plus give prn IV Hydralazine for systolic blood pressure > 160 mm Hg. 3. Ongoing Tobacco Abuse; with COPD complicating #1 & #2 - No evidence of acute flare at this time. Tobacco cessation was very strongly encouraged. 4. Hyperlipidemia - Restart statin and check Lipid Profile this admission in light of #1. 5. Overweight; with BMI of 29.9 this admission - Weight loss will be recommended. Check TSH. 6. Chronic RBBB - Noted. 7. History of bilateral external otitis media - Noted. 8. History of blindness in the right eye - Stable. 9. DVT prophylaxis - Patient on full-dose Lovenox for #1. Total time: Approximately 55 minutes. Charges/Coding Visit Charges Inpatient E&M: 58548 Init Hosp L2
[2023-07-13 00:53] LABS: Troponin-I HS 723 pg/mL (3.0-78.0)
[2023-07-13] MEDS: Enoxaparin 120 MG/0.8 ML Syringe 110 MG SC (01:30)
[2023-07-13] MEDS: Clopidogrel Bisulfate 75 MG Tablet PO ×2 (01:30→08:22)
--- OUTSIDE RECORDS SUMMARY | 2023-07-13 01:35 | XMS RPT_ITS | CCD ---
Author Name Unknown Address [address] [place] [address] Organization [facility] Care Team Providers Care Manager Regional Name Role Phone ELIGIO SEPULVEDA Unavailable Unavailable ELIGIO SEPULVEDA Unavailable Unavailable NEHEMIAH JACOB Unavailable Unavailable ELIGIO SEPULVEDA Unavailable Unavailable ELIGIO SEPULVEDA Unavailable Unavailable Nehemiah Jacob MD Primary Care Provider Nehemiah Jacob MD Primary Care Provider Nehemiah Jacob MD Primary Care Provider SCOTT LOTT Referring Unavailable NEHEMIAH JACOB Primary Care Unavailab le KANAA'N V, EHRMELINDO Admitting Unavailable DUDLEY BRITT Attending Unavailable NEHEMIAH [...] le NEHEMIAH JACOB Referring Unavailab le NEHEMIAH JCAOB Attending Unavailab le PODLOGAR, MARCELLA Referring Unavailable [...] sources) varenicline; Translations: [VARENICLINE] Drug Allergy 05-16-2016 [facility] Repository Medications Current Medications Medication Drug Class(es) [...] mg tablet Indications: 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, unspecified vessel or [...] Coronary arteriosclerosis; Translations: [Atherosclerotic heart disease of nikolai coronary artery without angina pectoris] Onset: 05-16-2016 [...] 68 mm[Hg] Nehemiah Jacob MD Work Phone: [facility] 04-05-2022 15:44-0500 Systolic blood pressure 162 mm[Hg] Nehemiah Jacob MD Work Phone: [facility] 04-05-2022 15:14-0500 Body weight 108.14 kg Nehemiah Jacob MD Work Phone: [facility] 04-05-2022 15:14-0500 Heart rate 68 /min Nehemiah Jacob MD Work Phone: [facility] 04-05-2022 15:14-0500 Respiratory rate 18 /min Nehemiah Jacob MD Work Phone: [facility] 04-05-2022 15:14-0500 SaO2% (BldA) [Mass fraction] 96 % Nehemiah Jacob MD Work Phone: [facility] 03-23-2022 13:57-0500 Body height 190.5 cm Scott Lott MD Work Phone: [facility] 03-23-2022 13:57-0500 Body weight 109.32 kg Scott Lott MD Work Phone: [facility] 03-23-2022 13:57-0500 Diastolic blood pressure 76 mm[Hg] Scott Lott MD Work Phone: [facility] 03-23-2022 13:57-0500 Heart rate 66 /min Scott Lott MD Work Phone: [facility] 03-23-2022 13:57-0500 SaO2% (BldA) [Mass fraction] 99 % Scott Lott MD Work Phone: [facility] 03-23-2022 13:57-0500 Systolic blood pressure 177 mm[Hg] Scott Lott MD Work Phone: [facility] 03-09-2022 17:13-0500 Diastolic blood pressure 87 mm[Hg] Marcella Podlogar NIGHT WORKER.PARACHUTE HARNESS RIGGER Work Phone: [facility] 03-09-2022 17:13-0500 Systolic blood pressure 200 mm[Hg] Marcella Podlogar NIGHT WORKER.PARACHUTE HARNESS RIGGER Work Phone: [facility] 03-09-2022 16:43-0500 Body weight 111.13 kg Marcella Podlogar NIGHT WORKER.PARACHUTE HARNESS RIGGER Work Phone: [facility] 03-09-2022 16:43-0500 Heart rate 71 /min Marcella Podlogar NIGHT WORKER.PARACHUTE HARNESS RIGGER Work Phone: [facility] 03-09-2022 16:43-0500 SaO2% (BldA) [Mass fraction] 99 % Marcella Podlogar NIGHT WORKER.PARACHUTE HARNESS RIGGER Work Phone: [facility] 02-17-2022 08:31-0400 Body height 190.5 cm Mary Saavedra MD Work Phone: [facility] 02-17-2022 08:31-0400 Body weight 104.78 kg Mary Saavedra MD Work Phone: [facility] 02-17-2022 08:31-0400 Heart rate 65 /min Mary Saavedra MD Work Phone: [facility] 02-17-2022 08:31-0400 Respiratory rate 16 /min Mary Saavedra MD Work Phone: [facility] 02-17-2022 08:31-0400 SaO2% (BldA) [Mass fraction] 100 % Mary Saavedra MD Work Phone: [facility] 02-02-2022 08:24-0400 Diastolic blood pressure 98 mm[Hg] Marcella Podlogar NIGHT WORKER.PARACHUTE HARNESS RIGGER Work Phone: [facility] 02-02-2022 08:24-0400 Heart rate 62 /min Marcella Podlogar NIGHT WORKER.PARACHUTE HARNESS RIGGER Work Phone: [facility] 02-02-2022 08:24-0400 Systolic blood pressure 213 mm[Hg] Marcella Podlogar NIGHT WORKER.PARACHUTE HARNESS RIGGER Work Phone: [facility] 02-02-2022 07:47-0400 Body weight 108.95 kg Marcella Podlogar NIGHT WORKER.PARACHUTE HARNESS RIGGER Work Phone: [facility] 02-02-2022 07:47-0400 Respiratory rate 18 /min Marcella Podlogar NIGHT WORKER.PARACHUTE HARNESS RIGGER Work Phone: [facility] 02-02-2022 07:47-0400 SaO2% (BldA) [Mass fraction] 100 % Marcella Podlogar NIGHT WORKER.PARACHUTE HARNESS RIGGER Work Phone: [facility] 01-19-2022 08:56-0400 Diastolic blood pressure 92 mm[Hg] Marcella Podlogar NIGHT WORKER.PARACHUTE HARNESS RIGGER Work Phone: [facility] 01-19-2022 08:56-0400 Heart rate 58 /min Marcella Podlogar NIGHT WORKER.PARACHUTE HARNESS RIGGER Work Phone: [facility] 01-19-2022 08:56-0400 Systolic blood pressure 166 mm[Hg] Marcella Podlogar NIGHT WORKER.PARACHUTE HARNESS RIGGER Work Phone: [facility] 01-19-2022 08:04-0400 Body weight 109.32 kg Marcella Podlogar NIGHT WORKER.PARACHUTE HARNESS RIGGER Work Phone: [facility] 01-19-2022 08:04-0400 Respiratory rate 18 /min Marcella Podlogar NIGHT WORKER.PARACHUTE HARNESS RIGGER Work Phone: [facility] 01-19-2022 08:04-0400 SaO2% (BldA) [Mass fraction] 99 % Marcella Podlogar NIGHT WORKER.PARACHUTE HARNESS RIGGER Work Phone: [facility] Encounters Encounter Date Encounter Type Care Provider [...] Author Start: 02-02-2027 LIPID SCREEN LIPID SCREEN [facility] Start: 03-31-2025 DIABETES SCREEN DIABETES SCREEN [facility] Start: 03-25-2025 DIABETES SCREEN DIABETES SCREEN [facility] Start: 02-02-2025 DIABETES SCREEN DIABETES SCREEN [facility] Start: 04-05-2023 ANNUAL PCP TEAM CHRONIC DISEASE VISIT ANNUAL PCP TEAM CHRONIC DISEASE VISIT [facility] Start: 03-09-2023 ANNUAL PCP TEAM CHRONIC DISEASE VISIT ANNUAL PCP TEAM CHRONIC DISEASE VISIT [facility] Start: 02-02-2023 ANNUAL PCP TEAM CHRONIC DISEASE VISIT ANNUAL PCP TEAM CHRONIC DISEASE VISIT [facility] Start: 02-02-2023 Hepatitis B surface antibody level LDL CHOLESTEROL [facility] Start: 01-19-2023 ANNUAL PCP TEAM CHRONIC DISEASE VISIT ANNUAL PCP TEAM CHRONIC DISEASE VISIT [facility] Start: 05-01-2022 DEPRESSION ASSESSMENT DEPRESSION ASSESSMENT [facility] Start: 04-19-2022 End: 06-19-2022 Comprehensive metabolic 2000 panel - Serum or Plasma COMP METABOLIC PANEL Lab Routine Hypertension, essential Expected: 04/19/2022, Expires: 06/19/2022 [facility] Work Phone: Immunizations Immunization Date Immunization Notes Care Provider Samuel peña 12-28-2004 tetanus and diphther ia toxoids, adsorbed, preservative free, for adult use (2 Lf of tetanus toxoid and 2 Lf of diphtheria toxoid) Gunner Mcbride MD Work Phone: [facility] Work Phone: Payers Date Payer Category Payer Unknown [id number] 2021 Unknown ANTHEM BLUE CARD PPO OOS [id number] 2021-Present [phone] [address] [place] [address] PPO [id number] Social History Date Type Detail Facility Start: 12-03-1977 End: 02-02-2022 Tobacco smoking status NHIS Smokes tobacco daily [facility] Work Phone: Start: 12-03-1977 History of tobacco use Cigarette Smo ker [facility] Work Phone: Start: 12-03-2018 End: 02-02-2022 Cigarettes smoked current (pack per day) - Reported 1 [facility] Start: 12-03-2018 End: 02-02-2022 Tobacco use and exposure Smokeless tobacco non-user [facility] Work Phone: Start: 02-25-2021 End: 05-18-2022 Alcohol intake Current non-drinker of alcohol (finding) [facility] Start: 12-03-2018 End: 02-02-2022 Tobacco Comment Relapsed on/after only a few weeks Chantix. TO 12/03/18. [facility] Start: 1960 Sex Assigned At Not on file [facility] Start: 01-23-2022 End: 02-02-2022 Exposure to SARS-CoV-2 (event) Unable to assess [facility] Work Phone: Start: 03-13-2022 End: 03-31-2022 Exposure to SARS-CoV-2 (event) Not sure [facility] Clinical Notes 01-17-2022 to 05-30-2022 Telephone Encounter [...] Radha Winkler LPN documented in this encounter [facility] 05-18-2022 Note HNO ID: [id number] Author: Scott Lott MD Service: ? 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 [facility] 05-06-2022 Miscellaneous Notes Patient's request for medication is as follows: Requested Prescriptions Pending Prescriptions Disp Refills carvedilol (COREG) 12.5 mg tablet [Pharmacy Med Name: CARVEDILOL 12.5 MG TABLET] 180 tablet 3 Sig: take 1 tablet by mouth twice a day Last seen 03/23/2022. Follow up scheduled for 06/15/2022. Prescription(s) as above. Please process accordingly. Radha Winkler LPN documented in this encounter [facility] 05-05-2022 Miscellaneous Notes Patient has been identified [...] advise. Kiersten Ross documented in this encounter [facility] 04-18-2022 Miscellaneous Notes Pt notified new letter faxed to Lizabeth. Mercdees Lopes RN Spoke with pt. 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 He [...] Rehab. Mercedes Lopes RN Letter faxed to [employer]. Fax confirmation received. Mercedes Lopes RN Have generated return to work letter with restrictions. Once he finishes a month of cardiac rehab and if theres no problems then I can give him a letter without restrictions. Scott Lott MD Patient's spouse Liz called [facility] to provide the fax number for his work [employer]. Fax number is [phone]. Kiersten Tyson LPN Pt calls to request he be allowed to return to work 04/18/22. He will call back with his employer's fax number. Mercedes Lopes RN Mrs Gustafson called and asked if Dr Lott would write a return to work letter after having heart cath. 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 He is not complaining of any symptoms. Mrs Gustafson will let us know where to fax letter to. Thank you, Anastasia Garcia LPN documented in this encounter [facility] 04-06-2022 Miscellaneous Notes Scheduled to start Cardiac Rehab 04/11/22. Patient to check ins coverage prior documented in this encounter [facility] 04-05-2022 Note HNO ID: [id number] Author: Nehemiah Jacob MD Service: ? Author Type: Physician Type: Progress Notes Filed: 04/05/2022 4:04 PM Note Text: Chief Complaint Patient presents with: Hospital F/U Transition Of Care HPI Gonzales Gustafson is a 61 year old male who presents here today for Hospital Discharge Follow up. Patient was admitted to [facility] on 03/31 for scheduled left heart catheterization. Hospital discharge summary and report do not appear to be complete at the time of this visit. States that he had 3 stents placed. Left AMA because he did not want to stay the night in the hospital. They recommended he follow up with cardiac rehab and wanted to go to [place]. Waiting to hear from them still. Since [...] TCM eligible thru 04/14/22 Pt discharged from [facility] on 03/31/22. Admitted for: unstable angina Pt identified by name and : YES, via phone Outreach Outcome/Action Spoke to patient or caregiver: Patient scheduled Did you use a PCP flex slot to schedule this appointment? No Reason for Outreach [facility] Payer: Payor: FLASH / Plan: BLUE CARD [...] for lesions, onel (more content not included)... [facility] 04-05-2022 History of Present illness Narrative Chief Complaint Patient presents with: Hospital F/U Transition Of Care HPI Gonzales Gustafson is a 61 year old male who presents here today for Hospital Discharge Follow up. Patient was admitted to [facility] on 03/31 for scheduled left heart catheterization. Hospital discharge summary and report do not appear to be complete at the time of this visit. States that he had 3 stents placed. Left AMA because he did not want to stay the night in the hospital. They recommended he follow up with cardiac rehab and wanted to go to [place]. Waiting to hear from them still. Since [...] TCM eligible thru 04/14/22 Pt discharged from [facility] on 03/31/22. Admitted for: unstable angina Pt identified by name and : YES, via phone Outreach Outcome/Action Spoke to patient or caregiver: Patient scheduled Did you use a PCP flex slot to schedule this appointment? No Reason for Outreach [facility] Payer: Payor: FLASH / Plan: BLUE CARD [...] Lymph 1.00 - 4.00 k/uL 1.91 1.83 [place]% % 6.3 10.0 Abs [place] <0.87 k/uL 0.55 0.86 Eosin% % 0.6 [...] (H) ASSESSMENT/PLAN: 1. 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 Apparently had 3 stents, but report is not complete so I cannot determine where. Symptoms are improving, but still has some intermittent chest pain and SOB. Encouraged him to stop smoking, continue current regimen, f/u with cardiology and call to schedule cardiac rehab in [place]. Red flags for re-assessment reviewed with patient [...] Nehemiah Jacob MD documented in this encounter [facility] 04-01-2022 Note Patient Outreach (AM BC) BURAKGONZALES Onesimo ([id number]) 1960 M Date Time Provider Department 04/01/22 [...] TCM thru 04/14/22 SUMMARY: Pt discharged from [facility] on 03/31/22. Admitted for: unstable angina Contact made with patient: Yes Hi my name is Radha Pinzon RN and I am calling from the [facility] on behalf of your PCP, Nehemiah Jacob [...] like to speak with a social work clinical team manager to help give you support for any [...] I will send your request to a process control tech who will contact and assist you with that appointment. This will give you an opportunity to ask any questions or address any concerns you may have with your PCP. Inform the patient that if they have any questions or concerns prior to that appointment, to call their PCP's office right away. ACTION TAKEN: Patient desires an appointment - Routed to [facility] [[id number]] for scheduling telehealth visit (telephonic, virtual visit, [...] Home Visit Referral Source of Stratification: TCM [facility] Admission Status: Discharged Readmission Risk Score: [...] follow up with (more content not included)... [facility] 04-01-2022 Miscellaneous Notes Received Cardiac Rehab referral. Spoke with patient, he is interested in location closer to home. Patient does not want [facility] as he wishes to stay within [facility]. Patient chooses [place] as preferred location. Referral sent to [place] to contact patient for scheduling. documented in this encounter [facility] 04-01-2022 Note HNO ID: [id number] Author: Keke Clifford MA Service: ? Author Type: Reaming Machine Operator Type: Progress Notes Filed: 04/01/2022 10:16 AM Note Text: POPULATION HEALTH NAVIGATION OUTREACH Action/FYI Spoke with pt. Pt scheduled for hospital follow up with PCP on 04/05/22. TCM eligible thru 04/14/22 Pt discharged from [facility] on 03/31/22. Admitted for: unstable angina Pt identified by name and : YES, via phone Outreach Outcome/Action Spoke to patient or caregiver: Patient scheduled Did you use a PCP flex slot to schedule this appointment? No Reason for Outreach [facility] Payer: Payor: FLASH / Plan: BLUE CARD [...] Clifford MA April 01, 2022 10:12 AM [facility] 04-01-2022 Note HNO ID: [id number] Author: Radha Pinzon RN Service: ? Author [...] TCM thru 04/14/22 SUMMARY: Pt discharged from [facility] on 03/31/22. Admitted for: unstable angina Contact made with patient: Yes Hi my name is Radha Pinzon RN and I am calling from the [facility] on behalf of your PCP, Nehemiah Jacob [...] like to speak with a social work clinical team manager to help give you support for any [...] I will send your request to a process control tech who will contact and assist you with that appointment. This will give you an opportunity to ask any questions or address any concerns you may have with your PCP. Inform the patient that if they have any questions or concerns prior to that appointment, to call their PCP's office right away. ACTION TAKEN: Patient desires an appointment - Routed to [facility] [[id number]] for scheduling telehealth visit (telephonic, virtual visit, [...] Pinzon RN April 01, 2022 10:06 AM [facility] 04-01-2022 Miscellaneous Notes Called PT about [...] Scott Lott MD documented in this encounter [facility] 04-01-2022 History of Present illness Narrative POPULATION HEALTH NAVIGATION OUTREACH Action/[place] Spoke with pt. Pt scheduled for hospital follow up with PCP on 04/05/22. TCM eligible thru 04/14/22 Pt discharged from [facility] on 03/31/22. Admitted for: unstable angina Pt [...] TCM thru 04/14/22 SUMMARY: Pt discharged from [facility] on 03/31/22. Admitted for: unstable angina Contact made with patient: Yes Hi my name is Radha Pinzon RN and I am calling from the [facility] on behalf of your PCP, Nehemiah Jacob [...] like to speak with a social work clinical team manager to help give you support for any [...] I will send your request to a process control tech who will contact and assist you with that appointment. This will give you an opportunity to ask any questions or address any concerns you may have with your PCP. Inform the patient that if they have any questions or concerns prior to that appointment, to call their PCP's office right away. ACTION TAKEN: Patient desires an appointment - Routed to [facility] [[id number]] for scheduling telehealth visit (telephonic, virtual visit, [...] TCM Home Visit Referral Source of Stratification: [facility] Admission Status: Discharged Readmission Risk Score: 8 CHRISTIANO Score: 1 Patient meets program referral criteria: No Patient does not qualify for High Risk TCM Home Visit program due to: Discharged home, does not meet program criteria Radha Pinzon RN April 01, 2022 10:06 AM documented in this encounter [facility] 03-29-2022 Miscellaneous Notes Letter mailed to pt home of results. Laurel Burch MA TC to patient. Mailbox is full, unable to leave message. Please try back later. Brooke Kebede LPN Please call patient and let him know his A1c is in good range Marcella Roberson APRN.PARACHUTE HARNESS RIGGER documented in this encounter [facility] 03-23-2022 Note HNO ID: [id number] Author: Scott Lott MD Service: ? Author Type: Physician Type: Progress Notes Filed: 03/23/2022 2:59 PM Note Text: Cardiology consultation at the request of Marcella Roberson DAMAGED FREIGHT INSPECTOR. A copy of this consultation note will [...] day at work. 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 [facility] 03-23-2022 History of Present illness Narrative [...] day at work. 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 ASSESSMENT/PLAN: 1. 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 Author Type: Nurse Practitioner Type: [...] MG CAPSULE 2. 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 [facility] 03-09-2022 History of Present illness Narrative [...] MG CAPSULE 2. 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 [...] which included preparing to see the patient, [id number] patient care, completing clinical documentation, obtaining and/or reviewing separately obtained history, performing a medically appropriate examination, counseling and educating the patient/family/caregiver, and ordering medications, tests, or procedures. documented in this encounter [facility] 03-03-2022 Note HNO ID: [id number] Author: Kiersten Robertson PA-C Service: ? Author Type: Physician Senior Consumer Insights Consultant Type: Progress Notes Filed: 03/03/2022 10:40 AM Note Text: Nocturnal Oximetry, RA, 02/21/2022. Recording interval: 4:52:12 High pulse: 77 Low pulse: 54 Highest spO2: 99% Lowest spO2: 90% Time with spO2 < 88%: 0 minutes Recommendation: Based on above results, patient does not require supplemental oxygen. I have received and reviewed the outside records noted above. Kiersten Robertson PA-C [facility] [place] [facility] 03-03-2022 History of Present illness Narrative Nocturnal Oximetry, RA, 02/21/2022. Recording interval: 4:52:12 High pulse: 77 Low pulse: 54 Highest spO2: 99% Lowest spO2: 90% Time with spO2 < 88%: 0 minutes Recommendation: Based on above results, patient does not require supplemental oxygen. I have received and reviewed the outside records noted above. Kiersten Robertson PA-C [facility] [place] documented in this encounter [facility] 03-02-2022 Miscellaneous Notes Pt notified. Appt scheduled. [...] needs to call them. This nurse phoned [facility] and spoke to Corina, Sony, who reports patient has refills on all his medications except amlodipine. Pended rx for amlodipine. Notified patient there are refills on all of his Rx's at [facility], and will send refill request to provider for amlodipine. documented in this encounter [facility] 02-22-2022 Miscellaneous Notes Patient returned call and went over results, notes from Marcella Roberson DAMAGED FREIGHT INSPECTOR with understanding. TC to patient with no [...] Marcella Roberson APRN.THOM documented in this encounter [facility] 02-22-2022 Miscellaneous Notes RX sent to [facility] by Bruna at last office visit. Li Isaac LPN Requested Prescriptions Pending Prescriptions Disp Refills tiotropium bromide (SPIRIVA RESPIMAT) 2.5 mcg/actuation inhaler 1 Each 5 Sig: Inhale 2 Puffs as instructed once daily. Pt came in for stress test today and states he is out of his inhaler. documented in this encounter [facility] 02-21-2022 Miscellaneous Notes Valid script at [facility] for Amlodipine, Losartan & Metoprolol. [facility] verified in [facility] Patient has been identified by name and [...] Kiersten Harry Pss documented in this encounter [facility] 02-17-2022 Miscellaneous Notes Call to pt to [...] Marcella Roberson APRN.THOM documented in this encounter [facility] 02-17-2022 Note HNO ID: [id number] Author: Mary Saavedra MD Service: ? Author Type: Physician Type: Progress Notes Filed: 02/17/2022 9:39 AM Note Text: . 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 [facility] 02-17-2022 Note HNO ID: [id number] Author: JEAN Ricks Service: ? Author Type: [...] DATE: February 17, 2022 TIME: 8:29 AM [facility] 02-17-2022 Note HNO ID: [id number] Author: JEAN Ricks Service: ? Author Type: Respiratory Therapist Type: Progress Notes Filed: 02/17/2022 8:29 AM Note Text: PULM FUNCTION SMARTBLOCK: Provider: Mary Saavedra MD Assisting Tech: JEAN Ricks Spirometry: 1 Exhaled Nitric Oxide: 1 [facility] 02-17-2022 History of Present illness Narrative Images from the original note were not included. . 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 documented in this encounter [facility] 02-09-2022 Miscellaneous Notes Reviewed. Marcella Roberson APRN.THOM [...] Marcella Roberson APRN.THOM documented in this encounter [facility] 02-04-2022 Miscellaneous Notes Pt called and is [...] Marcella Roberson APRN.THOM documented in this encounter [facility] 02-03-2022 Miscellaneous Notes Pt called and is [...] Rosalina Locke RN documented in this encounter [facility] 02-02-2022 Miscellaneous Notes Reviewed. Marcella Roberson APRN.CNP [...] update. Thank you. documented in this encounter [facility] 02-02-2022 Note HNO ID: [id number] Author: Brooke Kebede LPN Service: ? Author Type: LICENSED NURSE Type: Progress Notes Filed: 02/02/2022 9:48 AM Note Text: EVENT MONITOR DISPOSABLE PATCH INSTRUCTIONS Patient Name: Gonzales Echols [facility] Number: [id number] Skin prepped and cleansed with alcohol Patch secured to prepped area Monitor Activated Serial #: [id number] Patient Instructed: Prescribed order timeframe Bathing guidelines Usage of event button and diary documentation Return of monitor at the end of prescribed order Call with problems [phone] or [phone]. [phone] Patient expresses a good understanding of instructions Brooke Kebede LPN [facility] 02-02-2022 Note HNO ID: [id number] Author: Marcella Roberson APRN.[employer] Service: ? Author Type: Nurse Practitioner Type: [...] with readings 2. 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 [facility] 02-02-2022 Note HNO ID: [id number] Author: Carola White MD Service: Interventional Cardiology Author Type: Physician Type: Procedures Filed: 02/09/2022 1:07 PM Note Text: Patient Name: Gonzales Gustafson : 1960 Ordering Provider: Marcella Roberson Indication: R00.2 Palpitations Type of Monitor: Extended Monitoring-Zio Patch Enrollment Dates: 02/02/2022-02/03/2022 [facility] 02-02-2022 History of Present illness Narrative EVENT MONITOR DISPOSABLE PATCH INSTRUCTIONS Patient Name: Gonzales Echols [facility] Number: [id number] Skin prepped and cleansed with alcohol Patch secured to prepped area Monitor Activated Serial #: [id number] Patient Instructed: Prescribed order timeframe Bathing guidelines Usage of event button and diary documentation Return of monitor at the end of prescribed order Call with problems [phone] or [phone]. [phone] Patient expresses a good understanding of instructions [...] with readings 2. 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 documented in this encounter [facility] 01-19-2022 Note HNO ID: [id number] Author: Marcella Roberson APRN.CNP Service: ? Author Type: Nurse Practitioner Type: Progress Notes Filed: 01/19/2022 12:30 PM Note Text: 01/19/2022 Patient presents with: ED Follow-up: [facility] 01/17 for chest pain SUBJECTIVE: This is a 61 year old that is here today for Above Complaints. HOSPITAL/ER FOLLOW UP: Reason for visit: chest pain Which facility: [facility] Date of visit: 01/17/2022 Diagnosis: chest [...] with readings 2. 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 [facility] 01-19-2022 History of Present illness Narrative 01/19/2022 Patient presents with: ED Follow-up: [facility] 01/17 for chest pain SUBJECTIVE: This is a 61 year old that is here today for Above Complaints. HOSPITAL/ER FOLLOW UP: Reason for visit: chest pain Which facility: [facility] Date of visit: 01/17/2022 Diagnosis: chest [...] with readings 2. 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 Elevated hemoglobin (HCC) - ICD9: 282.7, ICD10: D58.2 - CBC + DIFF 4. SOB (shortness of breath) - ICD9: 786.05, ICD10: R06.02 - possible related to COPD vs cardiac as well - CONSULT TO CARDIOLOGY - [place] CARDIAC PERF STRESS/PHARM 5. Chest pain, unspecified type - ICD9: 786.50, ICD10: R07.9 - plan as in in #2 - CONSULT TO CARDIOLOGY - [place] CARDIAC PERF STRESS/PHARM 6. Encounter for screening [...] which included preparing to see the patient, [id number] patient care, completing clinical documentation, obtaining and/or reviewing separately obtained history, performing a medically appropriate examination, counseling and educating the patient/family/caregiver, and ordering medications, tests, or procedures. documented in this encounter [facility] 01-17-2022 Miscellaneous Notes Appointment scheduled for Mon [...] for ER f/u. 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, unspecified vessel or lesion type (HCC) [facility] Diagnosis SOB (shortness of breath) Shortness of breath [facility] Diagnosis SOB (shortness of breath)- Primary Shortness of breath Cigarette smoker Tobacco use disorder documented in this encounter [facility] note* Diagnosis Hypertension, essential Unspecified essential hypertension documented in this encounter [facility] note* Diagnosis Chest pain, unspecified type- Primary SOB (shortness of breath) Shortness of breath documented in this encounter [facility] note* Diagnosis Hypertension, essential Unspecified essential hypertension documented in this encounter [facility] note* Diagnosis Hypertension, essential- Primary Unspecified essential hypertension 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, unspecified vessel or lesion type (HCC) documented in this encounter [facility] note* Diagnosis Coronary artery disease involving nikolai coronary artery of nikolai heart with unstable angina pectoris (HCC)- Primary Primary hypertension Unspecified essential hypertension 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, unspecified vessel or lesion type (HCC) SOB (shortness of breath) Shortness of breath Chest pain, unspecified type Unstable angina (HCC) Intermediate coronary syndrome ACS (acute coronary syndrome) (HCC) Intermediate coronary syndrome documented in this encounter [facility] note* Diagnosis 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, unspecified vessel or lesion type (HCC) SOB (shortness of breath) Shortness of breath documented in this encounter [facility] note* Diagnosis Coronary artery disease involving nikolai coronary artery of nikolai heart with unstable angina pectoris (HCC)- Primary History of coronary artery stent placement Postsurgical percutaneous transluminal coronary angioplasty status documented in this encounter [facility] note* Diagnosis 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, unspecified vessel or lesion type (HCC)- Primary S/P angioplasty with stent Other postprocedural status Hypertension, essential Unspecified essential hypertension Tobacco use Tobacco use disorder Non-compliant patient Personal history of noncompliance with medical treatment, presenting hazards to health documented in this encounter [facility] note* Diagnosis Hypertension, essential Unspecified essential hypertension documented in this encounter [facility] for referral (narrative)* Outpatient Procedure (Routine) - Closed Specialty Diagnoses / Procedures Referred By Contac t Referred To Contact [facility] Diagnoses Palpitations Procedures ECG COMPLETE ECG ROUTINE ECG W/LEAST 12 LDS W/I&R Marcella Roberson APRN.[employer] [address] [place] [address] [facility] [place] [address] [place] [address] Referral ID Status Reason Start Date Expiration Date V isits Requested Visits Authorized [id number] Closed Auto-Generate d Referral 02/02/2022 04/30/2022 1 1 [facility] for referral (narrative)* Outpatient Procedure (Routine) - Closed Specialty Diagnoses / Procedures Referred By Contac t Referred To Contact [facility] Diagnoses SOB (shortness of breath) Procedures NITRIC OXIDE, EXHALED NITRIC OXIDE GAS DETERMINATION Mary Saavedra MD [address] [place] [address] [address] Referral ID Status Reason Start Date Expiration Date V isits Requested Visits Authorized [id number] Closed Auto-Generate d Referral 02/17/2022 04/30/2022 1 1 * Outpatient Procedure (Routine) - Closed Specialty Diagnoses / Procedures Referred By Contac t Referred To Contact [facility] Diagnoses SOB (shortness of breath) Procedures SPIROMETRY WITH DILATOR IF OBSTRUCTED BRNCDILAT RSPSE SPMTRY PRE&POST-BRNCDILAT ADMMary Feliciano MD [address] [place] [address] [address] Referral ID Status Reason Start Date Expiration Date V isits Requested Visits Authorized [id number] Closed Auto-Generate d Referral 02/17/2022 04/30/2022 1 1 [facility] for referral (narrative)* Outpatient Procedure (Routine) - Pending Review Specialty Diagnoses / Procedures Referred By Contac t Referred To Contact [facility] Diagnoses 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, unspecified vessel or lesion type (HCC) SOB (shortness of breath) Procedures ECHO ECHO TTHRC R-T 2D W/WOM-MODE COMPL SPEC&COLR D Scott Lott MD [address] [place] [address] [facility] [address] [address] Referral ID Status Reason Start Date Expiration Date Visits Requested Visits Authorized [id number] Pending Review Auto-Generat ed Referral 03/23/2023 1 1 * Outpatient Procedure (Routine) - Closed Specialty Diagnoses / Procedures Referred By Contac t Referred To Contact [facility] [place] Diagnoses 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, unspecified vessel or lesion type (HCC) Procedures ECG COMPLETE ECG ROUTINE ECG W/LEAST 12 LDS W/I&R Scott Lott MD [address] [place] [address] [facility] [place] [id number] [place] [id number] Referral ID Status Reason Start Date Expiration Date V isits Requested Visits Authorized [id number] Closed Auto-Generate d Referral 03/23/2022 03/23/2023 1 1 [facility] for referral (narrative)* Outpatient Procedure (Routine) - Closed Specialty Diagnoses / Procedures Referred By Contac t Referred To Contact [facility] Diagnoses 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, unspecified vessel or lesion type (HCC) SOB (shortness of breath) Procedures ECHO ECHO TTHRC R-T 2D W/WOM-MODE COMPL SPEC&COLR Scott Melara MD [address] [place] [address] [facility] [address] [address] Referral ID Status Reason Start Date Expiration Date V isits Requested Visits Authorized [id number] Closed Auto-Generate d Referral 03/30/2022 04/30/2022 1 1 [place] [facility] for visit Narrative* Outpatient Procedure (Routine) - Closed Specialty Diagnoses / Procedures Referred By Nathanael reynolds Referred To [facility] Diagnoses 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, unspecified vessel or lesion type (HCC) SOB (shortness of breath) Procedures ECHO ECHO TTHRC R-T 2D W/WOM-MODE COMPL SPEC&COLR D Scott Lott MD [address] [place] [address] [facility] [place] [address] [place] [address] Referral ID Status Reason Start Date Expiration Date V isits Requested Visits Authorized [id number] Closed Auto-Generate d Referral 03/30/2022 04/30/2022 1 1 [facility] Summary Purpose Family History No Family History [...] CONSULT LUNG CANCER SCREENING CLINIC Podlogar, Marcella, NIGHT WORKER.[employer]IGGER [address] [place] [address] Referral ID Status Reason Start Date Expiration Date Visits Requested Visits Authorized [id number] Ref Not Required PCP Requested Referral 01/19/2022 04/19/2022 1 1 Specialty Diagnoses / Procedures Referred By Nathanael reynolds Referred To Contact [facility] Diagnoses 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, unspecified vessel or lesion type (HCC) SOB (shortness of breath) Chest pain, unspecified type Procedures NM CARDIAC PERF STRESS/PHARM MYOCARDIAL SPECT MULTIPLE STUDIES PodlogarMarcella APRN.[employer]ESS [employer]IGGER [address] [place] [address] [facility] [address] [place] [address] Referral ID Status Reason Start Date Expiration Date Visits Requested Visits Authorized [id number] Pending Review Auto-Generat ed Referral 01/19/2022 02/18/2023 1 1 Specialty Diagnoses / Procedures Referred By Contac t Referred To Contact Cardiology Diagnoses 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, unspecified vessel or lesion type (HCC) SOB (shortness of breath) Chest pain, unspecified type Procedures CONSULT TO CARDIOLOGY OFFICE/OUTPATIENT [facility] HIGH MDM 60-74 MINUTES PodlogMarcella smallwood APRN.[employer]ESS [employer]IGGER [address] [place] [address] Referral ID Status Reason Start Date Expiration Date Visits Requested Visits Authorized [id number] Authorized PCP Requested Referral 01/19/2022 01/19/2023 1 [...] DATE CREATED AUTHOR AUTHOR'S ORGANIZ ATION 04/07/2022 [facility] DATE CREATED AUTHOR AUTHOR'S ORGANIZ ATION 04/22/2022 [facility] DATE CREATED AUTHOR AUTHOR'S ORGANIZ ATION 05/24/2022 [facility] Source Comments (unrecognize d section and content) In the event this informatio n is protected by the Federal Confidentiality of Alcohol and Drug Abuse Patient Records regulations: The Federal rules restrict any use of the information to criminally investigate or prosecute any alcohol or drug abuse patient.[facility] the event this information is protected by the Federal Confidentiality of Alcohol and Drug Abuse Patient Records regulations: The Federal rules restrict any use of the information to criminally investigate or prosecute any alcohol or drug abuse patient.[facility] the event this information is protected by the Federal Confidentiality of Alcohol and Drug Abuse Patient Records regulations: The Federal rules restrict any use of the information to criminally investigate or prosecute any alcohol or drug abuse patient.[facility] the event this information is protected by the Federal Confidentiality of Alcohol and Drug Abuse Patient Records regulations: The Federal rules restrict any use of the information to criminally investigate or prosecute any alcohol or drug abuse patient.[facility] the event this information is protected by the Federal Confidentiality of Alcohol and Drug Abuse Patient Records regulations: The Federal rules restrict any use of the information to criminally investigate or prosecute any alcohol or drug abuse patient.[facility] the event this information is protected by the Federal Confidentiality of Alcohol and Drug Abuse Patient Records regulations: The Federal rules restrict any use of the information to criminally investigate or prosecute any alcohol or drug abuse patient.[facility] the event this information is protected by the Federal Confidentiality of Alcohol and Drug Abuse Patient Records regulations: The Federal rules restrict any use of the information to criminally investigate or prosecute any alcohol or drug abuse patient.[facility] the event this information is protected by the Federal Confidentiality of Alcohol and Drug Abuse Patient Records regulations: The Federal rules restrict any use of the information to criminally investigate or prosecute any alcohol or drug abuse patient.[facility] Hospital[facility] the event this information is protected by [...] or prosecute any alcohol or drug abuse patient.[facility] the event this information is protected by the Federal Confidentiality of Alcohol and Drug Abuse Patient Records regulations: The Federal rules restrict any use of the information to criminally investigate or prosecute any alcohol or drug abuse patient.[facility] the event this information is protected by the Federal Confidentiality of Alcohol and Drug Abuse Patient Records regulations: The Federal rules restrict any use of the information to criminally investigate or prosecute any alcohol or drug abuse patient.[facility] Hospital[facility] the event this information is protected by the Federal Confidentiality of Alcohol and Drug Abuse Patient Records regulations: The Federal rules restrict any use of the information to criminally investigate or prosecute any alcohol or drug abuse patient.[facility] the event this information is protected by the Federal Confidentiality of Alcohol and Drug Abuse Patient Records regulations: The Federal rules restrict any use of the information to criminally investigate or prosecute any alcohol or drug abuse patient.[facility] the event this information is protected by the Federal Confidentiality of Alcohol and Drug Abuse Patient Records regulations: The Federal rules restrict any use of the information to criminally investigate or prosecute any alcohol or drug abuse patient.[facility] the event this information is protected by the Federal Confidentiality of Alcohol and Drug Abuse Patient Records regulations: The Federal rules restrict any use of the information to criminally investigate or prosecute any alcohol or drug abuse patient.[facility] Hospital[facility] the event this information is protected by the Federal Confidentiality of Alcohol and Drug Abuse Patient Records regulations: The Federal rules restrict any use of the information to criminally investigate or prosecute any alcohol or drug abuse patient.[facility] the event this information is protected by the Federal Confidentiality of Alcohol and Drug Abuse Patient Records regulations: The Federal rules restrict any use of the information to criminally investigate or prosecute any alcohol or drug abuse patient.[facility] Hospital[facility] the event this information is protected by the Federal Confidentiality of Alcohol and Drug Abuse Patient Records regulations: The Federal rules restrict any use of the information to criminally investigate or prosecute any alcohol or drug abuse patient.[facility] Hospital[facility] the event this information is protected by the Federal Confidentiality of Alcohol and Drug Abuse Patient Records regulations: The Federal rules restrict any use of the information to criminally investigate or prosecute any alcohol or drug abuse patient.[facility] HospitalIn the event this information is protected by the Federal Confidentiality of Alcohol and Drug Abuse Patient Records regulations: The Federal rules restrict any use of the information to criminally investigate or prosecute any alcohol or drug abuse patient.[facility] HospitalIn the event this information is protected by the Federal Confidentiality of Alcohol and Drug Abuse Patient Records regulations: The Federal rules restrict any use of the information to criminally investigate or prosecute any alcohol or drug abuse patient.[facility] HospitalIn the event this information is protected by the Federal Confidentiality of Alcohol and Drug Abuse Patient Records regulations: The Federal rules restrict any use of the information to criminally investigate or prosecute any alcohol or drug abuse patient.[facility] Hospital[facility] the event this information is protected by the Federal Confidentiality of Alcohol and Drug Abuse Patient Records regulations: The Federal rules restrict any use of the information to criminally investigate or prosecute any alcohol or drug abuse patient.[facility] Hospital[facility] the event this information is protected by the Federal Confidentiality of Alcohol and Drug Abuse Patient Records regulations: The Federal rules restrict any use of the information to criminally investigate or prosecute any alcohol or drug abuse patient.[facility] Hospital[facility] the event this information is protected by the Federal Confidentiality of Alcohol and Drug Abuse Patient Records regulations: The Federal rules restrict any use of the information to criminally investigate or prosecute any alcohol or drug abuse patient.[facility] the event this information is protected by the Federal Confidentiality of Alcohol and Drug Abuse Patient Records regulations: The Federal rules restrict any use of the information to criminally investigate or prosecute any alcohol or drug abuse patient.[facility] HospitalIn the event this information is protected by the Federal Confidentiality of Alcohol and Drug Abuse Patient Records regulations: The Federal rules restrict any use of the information to criminally investigate or prosecute any alcohol or drug abuse patient.[facility] Hospital[facility] the event this information is protected by the Federal Confidentiality of Alcohol and Drug Abuse Patient Records regulations: The Federal rules restrict any use of the information to criminally investigate or prosecute any alcohol or drug abuse patient.[facility] Hospital[facility] the event this information is protected by the Federal Confidentiality of Alcohol and Drug Abuse Patient Records regulations: The Federal rules restrict any use of the information to criminally investigate or prosecute any alcohol or drug abuse patient.[facility] the event this information is protected by the Federal Confidentiality of Alcohol and Drug Abuse Patient Records regulations: The Federal rules restrict any use of the information to criminally investigate or prosecute any alcohol or drug abuse patient.[facility] Reason for Visit (unrecogniz ed section and content) Reason Comments ED Follow-up [facility] 01/17 for chest p ain Reason Comments Blood Pressure 2 week follow up Reason Comments Patient Request Reason Comments Results Medication Update Reason Comments Spirometry Specialty Diagnoses / Procedures Referred By Contac t Referred To Contact [facility] Diagnoses SOB (shortness of breath) Procedures NITRIC OXIDE, EXHALED NITRIC OXIDE GAS DETERMINATION Mary Saavedra MD [address] [place] [address] Res[facility] [address] [place] [address] Referral ID Status Reason Start Date Expiration Date V isits Requested Visits Authorized [id number] Closed Auto-Generate d Referral 02/17/2022 04/30/2022 1 [...] Contact Cardiology Diagnoses 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, unspecified vessel or lesion type (HCC) SOB (shortness of breath) Chest pain, unspecified type Procedures CONSULT TO CARDIOLOGY OFFICE/OUTPATIENT NEW HIGH MDM 60-74 MINUTES Marcella Roberson APRN.[facility] [address] [place] [address] Referral ID Status Reason Start Date Expiration Date V isits Requested Visits Authorized [id number] Closed PCP Requested Referral 01/19/2022 01/19/2023 1 1 Reason Comments L[facility]isher - Hospital Follow Up Reason Onset Date Comments Transition Of Care 04/01/2022 TCM initial o utreach-dc'd from [facility] 03/31/22-left AMA Reason Comments Cardiac Rehab Referral Reason Comments Hospital F/U Transition Of Care Reason Comments Cardiac Rehab Reason Comments Return To Work Letter Reason Comments Refill Request Care Teams (unrecognized sec tion and content) Manager Regional Relationship Specialty Start Date End Date Nehemiah Jacob MD [address] [place], [place] [id number] PCP - General Family Medicine 05/16/16 Manager Regional Relationship Specialty Start Date End Date Nehemiah Jacob MD [address] [place], [place] [id number] PCP - General Family Medicine 05/16/16 Manager Regional Relationship Specialty Start Date End Date Nehemiah Jacob MD [address] [place], [place] [id number] PCP - General Family Medicine 05/16/16 Manager Regional Relationship Specialty Start Date End Date Nehemiah Jacob MD [address] [place] [address] PCP - General Family Medicine 05/16/16 Manager Regional Relationship Specialty Start Date End Date Nehemiah Jacob MD [address] [place] [address] PCP - General Family Medicine 05/16/16 Manager Regional Relationship Specialty Start Date End Date Nehemiah Jacob MD [address] [facility] [place] [address] PCP - General Family Medicine 05/16/16 Manager Regional Relationship Specialty Start Date End Date Nehemiah Jacob MD [address] [facility] [place] [address] PCP - General Family Medicine 05/16/16 Manager Regional Relationship Specialty Start Date End Date Nehemiah Jacob MD [address] [facility] [place] [address] PCP - General Family Medicine 05/16/16 Manager Regional Relationship Specialty Start Date End Date Nehemiah Jacob MD [address] [facility] [place] [address] PCP - General Family Medicine 05/16/16 Manager Regional Relationship Specialty Start Date End Date Nehemiah Jacob MD [address] [facility] [place] [address] PCP - General Family Medicine 05/16/16 Manager Regional Relationship Specialty Start Date End Date Nehemiah Jacob MD [address] [facility] [place] [address] PCP - General Family Medicine 05/16/16 Manager Regional Relationship Specialty Start Date End Date Nehemiah Jacob MD [address] [facility] [place] [address] PCP - General Family Medicine 05/16/16 Manager Regional Relationship Specialty Start Date End Date Nehemiah Jacob MD [address] [facility] [place] [address] PCP - General Family Medicine 05/16/16 Manager Regional Relationship Specialty Start Date End Date Nehemiah Jacob MD [address] [facility] [place] [address] PCP - General Family Medicine 05/16/16 Manager Regional Relationship Specialty Start Date End Date Nehemiah Jacob MD [address] [facility] [place] [address] PCP - General Family Medicine 05/16/16 Manager Regional Relationship Specialty Start Date End Date Nehemiah Jacob MD [address] [facility] [place] [address] PCP - General Family Medicine 05/16/16 Manager Regional Relationship Specialty Start Date End Date Nehemiah Jacob MD [address] [facility] [place] [address] PCP - General Family Medicine 05/16/16 Manager Regional Relationship Specialty Start Date End Date Nehemiah Jacob MD [address] [facility] [place] [address] PCP - General Family Medicine 05/16/16 Manager Regional Relationship Specialty Start Date End Date Nehemiah Jacob MD [address] [facility] [place] [address] PCP - General Family Medicine 05/16/16 Manager Regional Relationship Specialty Start Date End Date Nehemiah Jacob MD [address] [facility] [place] [address] PCP - General Family Medicine 05/16/16 Manager Regional Relationship Specialty Start Date End Date Nehemiah Jacob MD [address] [place] [address] PCP - General Family Medicine 05/16/16 FOR [...] BE BASED ON THE PRIMARY CLINICAL RECORDS. [employer] provides no warranty or guarantee of the accuracy or completeness of information in this document.
--- OUTSIDE RECORDS SUMMARY | 2023-07-13 01:50 | XMS RPT_ITS | CCD ---
Author Name Unknown Address [address] [place] [address] Organization [facility] Care Team Providers Care Progressive Care Manager Name Role Phone ELIGIO SEPULVEDA Unavailable Unavailable [...] sources) varenicline; Translations: [VARENICLINE] Drug Allergy 05-16-2016 [facility] Repository Medications Current Medications Medication [...] mg tablet Indications: Coronary artery disease involving [place] heart with angina pectoris, unspecified vessel or [...] Coronary arteriosclerosis; Translations: [Atherosclerotic heart disease of [place] coronary artery without angina pectoris] Onset: 05-16-2016 [...] 68 mm[Hg] Nehemiah Jacob MD Work Phone: [facility] 04-05-2022 15:44-0500 Systolic blood pressure 162 mm[Hg] Nehemiah Jacob MD Work Phone: [facility] 04-05-2022 15:14-0500 Body weight 108.14 kg Nehemiah Jacob MD Work Phone: [facility] 04-05-2022 15:14-0500 Heart rate 68 /min Nehemiah Jacob MD Work Phone: [facility] 04-05-2022 15:14-0500 Respiratory rate 18 /min Nehemiah Jacob MD Work Phone: [facility] 04-05-2022 15:14-0500 SaO2% (BldA) [Mass fraction] 96 % Nehemiah Jacob MD Work Phone: [facility] 03-23-2022 13:57-0500 Body height 190.5 cm Scott Lott MD Work Phone: [facility] 03-23-2022 13:57-0500 Body weight 109.32 kg Scott Lott MD Work Phone: [facility] 03-23-2022 13:57-0500 Diastolic blood pressure 76 mm[Hg] Scott Lott MD Work Phone: [facility] 03-23-2022 13:57-0500 Heart rate 66 /min Scott Lott MD Work Phone: [facility] 03-23-2022 13:57-0500 SaO2% (BldA) [Mass fraction] 99 % Scott Lott MD Work Phone: [facility] 03-23-2022 13:57-0500 Systolic blood pressure 177 mm[Hg] Scott Lott MD Work Phone: [facility] 03-09-2022 17:13-0500 Diastolic blood pressure 87 mm[Hg] Marcella Podlogar INFORMATION OFFICER.CREATIVE ASSISTANT Work Phone: [facility] 03-09-2022 17:13-0500 Systolic blood pressure 200 mm[Hg] Marcella Podlogar INFORMATION OFFICER.CREATIVE ASSISTANT Work Phone: [facility] 03-09-2022 16:43-0500 Body weight 111.13 kg Marcella Podlogar INFORMATION OFFICER.CREATIVE ASSISTANT Work Phone: [facility] 03-09-2022 16:43-0500 Heart rate 71 /min Marcella Podlogar INFORMATION OFFICER.CREATIVE ASSISTANT Work Phone: [facility] 03-09-2022 16:43-0500 SaO2% (BldA) [Mass fraction] 99 % Marcella Podlogar INFORMATION OFFICER.CREATIVE ASSISTANT Work Phone: [facility] 02-17-2022 08:31-0400 Body height 190.5 cm Mary Saavedra MD Work Phone: [facility] 02-17-2022 08:31-0400 Body weight 104.78 kg Mary Saavedra MD Work Phone: [facility] 02-17-2022 08:31-0400 Heart rate 65 /min Mary Saavedra MD Work Phone: [facility] 02-17-2022 08:31-0400 Respiratory rate 16 /min Mary Saavedra MD Work Phone: [facility] 02-17-2022 08:31-0400 SaO2% (BldA) [Mass fraction] 100 % Mary Saavedra MD Work Phone: [facility] 02-02-2022 08:24-0400 Diastolic blood pressure 98 mm[Hg] Marcella Podlogar INFORMATION OFFICER.CREATIVE ASSISTANT Work Phone: [facility] 02-02-2022 08:24-0400 Heart rate 62 /min Marcella Podlogar INFORMATION OFFICER.CREATIVE ASSISTANT Work Phone: [facility] 02-02-2022 08:24-0400 Systolic blood pressure 213 mm[Hg] Marcella Podlogar INFORMATION OFFICER.CREATIVE ASSISTANT Work Phone: [facility] 02-02-2022 07:47-0400 Body weight 108.95 kg Marcella Podlogar INFORMATION OFFICER.CREATIVE ASSISTANT Work Phone: [facility] 02-02-2022 07:47-0400 Respiratory rate 18 /min Marcella Podlogar INFORMATION OFFICER.CREATIVE ASSISTANT Work Phone: [facility] 02-02-2022 07:47-0400 SaO2% (BldA) [Mass fraction] 100 % Marcella Podlogar INFORMATION OFFICER.CREATIVE ASSISTANT Work Phone: [facility] 01-19-2022 08:56-0400 Diastolic blood pressure 92 mm[Hg] Marcella Podlogar INFORMATION OFFICER.CREATIVE ASSISTANT Work Phone: [facility] 01-19-2022 08:56-0400 Heart rate 58 /min Marcella Podlogar INFORMATION OFFICER.CREATIVE ASSISTANT Work Phone: [facility] 01-19-2022 08:56-0400 Systolic blood pressure 166 mm[Hg] Marcella Podlogar INFORMATION OFFICER.CREATIVE ASSISTANT Work Phone: [facility] 01-19-2022 08:04-0400 Body weight 109.32 kg Marcella Podlogar INFORMATION OFFICER.CREATIVE ASSISTANT Work Phone: [facility] 01-19-2022 08:04-0400 Respiratory rate 18 /min Marcella Podlogar INFORMATION OFFICER.CREATIVE ASSISTANT Work Phone: [facility] 01-19-2022 08:04-0400 SaO2% (BldA) [Mass fraction] 99 % Marcella Podlogar INFORMATION OFFICER.CREATIVE ASSISTANT Work Phone: [facility] Encounters Encounter Date Encounter Type Care [...] Author Start: 02-02-2027 LIPID SCREEN LIPID SCREEN [facility] Start: 03-31-2025 DIABETES SCREEN DIABETES SCREEN [facility] Start: 03-25-2025 DIABETES SCREEN DIABETES SCREEN [facility] Start: 02-02-2025 DIABETES SCREEN DIABETES SCREEN [facility] Start: 04-05-2023 ANNUAL PCP TEAM CHRONIC DISEASE VISIT ANNUAL PCP TEAM CHRONIC DISEASE VISIT [facility] Start: 03-09-2023 ANNUAL PCP TEAM CHRONIC DISEASE VISIT ANNUAL PCP TEAM CHRONIC DISEASE VISIT [facility] Start: 02-02-2023 ANNUAL PCP TEAM CHRONIC DISEASE VISIT ANNUAL PCP TEAM CHRONIC DISEASE VISIT [facility] Start: 02-02-2023 Hepatitis B surface antibody level LDL CHOLESTEROL [facility] Start: 01-19-2023 ANNUAL PCP TEAM CHRONIC DISEASE VISIT ANNUAL PCP TEAM CHRONIC DISEASE VISIT [facility] Start: 05-01-2022 DEPRESSION ASSESSMENT DEPRESSION ASSESSMENT [facility] Start: 04-19-2022 End: 06-19-2022 Comprehensive metabolic 2000 panel - Serum or Plasma COMP METABOLIC PANEL Lab Routine Hypertension, essential Expected: 04/19/2022, Expires: 06/19/2022 [facility] Work Phone: Immunizations Immunization Date Immunization Notes Care Provider Samuel peña 12-28-2004 tetanus and diphther ia toxoids, adsorbed, preservative free, for adult use (2 Lf of tetanus toxoid and 2 Lf of diphtheria toxoid) Gunner Mcbride MD Work Phone: [facility] Work Phone: Payers Date Payer Category Payer Unknown [id number] 2021 Unknown ANTHEM BLUE CARD PPO OOS [id number] 2021-Present [phone] [address] [place] [address] PPO [id number] Social History Date Type Detail Facility Start: 12-03-1977 End: 02-02-2022 Tobacco smoking status NHIS Smokes tobacco daily [facility] Work Phone: Start: [birth year]-03-1977 History of tobacco use Cigarette Smo ker [facility] Work Phone: Start: 12-03-2018 End: 02-02-2022 Cigarettes smoked current (pack per day) - Reported 1 [facility] Start: 12-03-2018 End: 02-02-2022 Tobacco use and exposure Smokeless tobacco non-user [facility] Work Phone: Start: 02-25-2021 End: 05-18-2022 Alcohol intake Current non-drinker of alcohol (finding) [facility] Start: 12-03-2018 End: 02-02-2022 Tobacco Comment Relapsed on/after only a few weeks Chantix. TO 12/03/18. [facility] Start: 1960 Sex Assigned At Not on file [facility] Start: 01-23-2022 End: 02-02-2022 Exposure to SARS-CoV-2 (event) Unable to assess [facility] Work Phone: Start: 03-13-2022 End: 03-31-2022 Exposure to SARS-CoV-2 (event) Not sure [facility] Clinical Notes 01-17-2022 to 05-30-2022 Telephone [...] Radha Winkler LPN documented in this encounter [facility] 05-18-2022 Note HNO ID: [id number] Author: Scott Lott MD Service: ? Author Type: Physician Type: Progress Notes Filed: 05/18/2022 2:41 PM Note Text: Chief Complaint: Patient presents with: Follow Up: Coronary artery disease involving [place] coronary artery of [place] heart with unstable angina pectoris (HCC History [...] day at work. 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 [facility] 05-06-2022 Miscellaneous Notes Patient's request for medication is as follows: Requested Prescriptions Pending Prescriptions Disp Refills carvedilol (COREG) 12.5 mg tablet [Pharmacy Med Name: CARVEDILOL 12.5 MG TABLET] 180 tablet 3 Sig: take 1 tablet by mouth twice a day Last seen 03/23/2022. Follow up scheduled for 06/15/2022. Prescription(s) as above. Please process accordingly. Radha Winkler LPN documented in this encounter [facility] 05-05-2022 Miscellaneous Notes Patient has been [...] advise. Kiersten Ross documented in this encounter [facility] 04-18-2022 Miscellaneous Notes Pt notified new letter faxed to [place]. Mercedes Lopes RN Spoke with pt. 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 He [...] Rehab. Mercedes Lopes RN Letter faxed to [place]. Fax confirmation received. Mercedes Lopes RN Have generated return to work letter with restrictions. Once he finishes a month of cardiac rehab and if theres no problems then I can give him a letter without restrictions. Scott Lott MD Patient's spouse Liz called [facility] to provide the fax number for his work [email or web address]. Fax number is [phone]. Kiersten Tyson LPN Pt calls to request he be allowed to return to work 04/18/22. He will call back with his employer's fax number. Mercedes Lopes RN Mrs Gustafson called and asked if Dr Lott would write a return to work letter after having heart cath. 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 He is not complaining of any symptoms. Mrs Gustafson will let us know where to fax letter to. Thank you, Anastasia Garcia LPN documented in this encounter [facility] 04-06-2022 Miscellaneous Notes Scheduled to start Cardiac Rehab 04/11/22. Patient to check ins coverage prior documented in this encounter [facility] 04-05-2022 Note HNO ID: [id number] Author: Nehemiah Jacob MD Service: ? Author Type: Physician Type: Progress Notes Filed: 04/05/2022 4:04 PM Note Text: Chief Complaint Patient presents with: Hospital F/U Transition Of Care HPI Gonzales Gustafson is a 61 year old male who presents here today for Hospital Discharge Follow up. Patient was admitted to [facility] on 03/31 for scheduled left heart catheterization. Hospital discharge summary and report do not appear to be complete at the time of this visit. States that he had 3 stents placed. Left AMA because he did not want to stay the night in the hospital. They recommended he follow up with cardiac rehab and wanted to go to [place]. Waiting to hear from them still. Since [...] TCM eligible thru 04/14/22 Pt discharged from [facility] on 03/31/22. Admitted for: unstable angina Pt [...] for lesions, onel (more content not included)... [facility] 04-05-2022 History of Present illness Narrative Chief Complaint Patient presents with: Hospital F/U Transition Of Care HPI Gonzales Gustafson is a 61 year old male who presents here today for Hospital Discharge Follow up. Patient was admitted to [facility] on 03/31 for scheduled left heart catheterization. Hospital discharge summary and report do not appear to be complete at the time of this visit. States that he had 3 stents placed. Left AMA because he did not want to stay the night in the hospital. They recommended he follow up with cardiac rehab and wanted to go to [place]. Waiting to hear from them still. Since [...] TCM eligible thru 04/14/22 Pt discharged from [facility] on 03/31/22. Admitted for: unstable angina Pt [...] Lymph 1.00 - 4.00 k/uL 1.91 1.83 [place]% % 6.3 10.0 Abs [place] <0.87 k/uL 0.55 0.86 Eosin% % 0.6 [...] (H) ASSESSMENT/PLAN: 1. Coronary artery disease involving [place] heart with angina pectoris, unspecified vessel or lesion type (HCC) - ICD9: 414.01, 413.9, ICD10: I25.119 (primary diagnosis) Patient with recent heart cath who left [place] same day. Apparently had 3 stents, but report is not complete so I cannot determine where. Symptoms are improving, but still has some intermittent chest pain and SOB. Encouraged him to stop smoking, continue current regimen, f/u with cardiology and call to schedule cardiac rehab in [place]. Red flags for re-assessment reviewed with patient [...] Nehemiah Jacob MD documented in this encounter [facility] 04-01-2022 Note Patient Outreach (AM BC) BURAKGONZALES Onesimo ([id number]) 1960 M Date Time Provider Department 04/01/22 [...] TCM thru 04/14/22 SUMMARY: Pt discharged from [facility] on 03/31/22. Admitted for: unstable angina Contact made with patient: Yes Hi my name is Radha Pinzon RN and I am calling from the [facility] on behalf of your PCP, Nehemiah [...] like to speak with a social work customer solutions teammate to help give you support for any [...] I will send your request to a landscape designer who will contact and assist you with that appointment. This will give you an opportunity to ask any questions or address any concerns you may have with your PCP. Inform the patient that if they have any questions or concerns prior to that appointment, to call their PCP's office right away. ACTION TAKEN: Patient desires an appointment - Routed to [facility] [[id number]] for scheduling telehealth visit (telephonic, virtual visit, [...] Home Visit Referral Source of Stratification: TCM [facility] Admission Status: Discharged Readmission Risk Score: [...] follow up with (more content not included)... [facility] 04-01-2022 Miscellaneous Notes Received Cardiac Rehab referral. Spoke with patient, he is interested in location closer to home. Patient does not want [facility] as he wishes to stay within [facility]. Patient chooses [place] as preferred location. Referral sent to [place] to contact patient for scheduling. documented in this encounter [facility] 04-01-2022 Note HNO ID: [id number] Author: Keke Clifford MA Service: ? Author Type: Telesales Advisor Type: Progress Notes Filed: 04/01/2022 10:16 AM Note Text: POPULATION HEALTH NAVIGATION OUTREACH Action/FYI Spoke with pt. Pt scheduled for hospital follow up with PCP on 04/05/22. TCM eligible thru 04/14/22 Pt discharged from [facility] on 03/31/22. Admitted for: unstable angina Pt identified by name and : YES, via phone Outreach Outcome/Action Spoke to patient or caregiver: Patient scheduled Did you use a PCP flex slot to schedule this appointment? No Reason for Outreach [facility] [place] Payer: Payor: FLASH / Plan: BLUE CARD [...] Clifford MA April 01, 2022 10:12 AM [facility] 04-01-2022 Note HNO ID: [id number] Author: Radha Pinzon RN Service: ? Author [...] TCM thru 04/14/22 SUMMARY: Pt discharged from [facility] on 03/31/22. Admitted for: unstable angina Contact made with patient: Yes Hi my name is Radha Pinzon RN and I am calling from the [facility] on behalf of your PCP, Nehemiah [...] like to speak with a social work customer solutions teammate to help give you support for any [...] I will send your request to a landscape designer who will contact and assist you with that appointment. This will give you an opportunity to ask any questions or address any concerns you may have with your PCP. Inform the patient that if they have any questions or concerns prior to that appointment, to call their PCP's office right away. ACTION TAKEN: Patient desires an appointment - Routed to [facility] [[id number]] for scheduling telehealth visit (telephonic, virtual visit, [...] Pinzon RN April 01, 2022 10:06 AM [facility] 04-01-2022 Miscellaneous Notes Called PT about echocardiogram [...] Scott Lott MD documented in this encounter [facility] 04-01-2022 History of Present illness Narrative POPULATION HEALTH NAVIGATION OUTREACH Action/[place] Spoke with pt. Pt scheduled for hospital follow up with PCP on 04/05/22. TCM eligible thru 04/14/22 Pt discharged from [facility] on 03/31/22. Admitted for: unstable angina Pt [...] TCM thru 04/14/22 SUMMARY: Pt discharged from [facility] on 03/31/22. Admitted for: unstable angina Contact made with patient: Yes Hi my name is Radha Pinzon RN and I am calling from the [facility] on behalf of your PCP, Nehemiah [...] like to speak with a social work customer solutions teammate to help give you support for any [...] I will send your request to a landscape designer who will contact and assist you with that appointment. This will give you an opportunity to ask any questions or address any concerns you may have with your PCP. Inform the patient that if they have any questions or concerns prior to that appointment, to call their PCP's office right away. ACTION TAKEN: Patient desires an appointment - Routed to [facility] [[id number]] for scheduling telehealth visit (telephonic, virtual visit, [...] TCM Home Visit Referral Source of Stratification: [facility] Hospital Admission Status: Discharged Readmission Risk Score: 8 CHRISTIANO Score: 1 Patient meets program referral criteria: No Patient does not qualify for High Risk TCM Home Visit program due to: Discharged home, does not meet program criteria Radha Pinzon RN April 01, 2022 10:06 AM documented in this encounter [facility] 03-29-2022 Miscellaneous Notes Letter mailed to pt home of results. Laurel Burch MA TC to patient. Mailbox is full, unable to leave message. Please try back later. Brooke Kebede LPN Please call patient and let him know his A1c is in good range Marcella Roberson APRN.CREATIVE ASSISTANT documented in this encounter [facility] 03-23-2022 Note HNO ID: [id number] Author: Scott Lott MD Service: ? Author Type: Physician Type: Progress Notes Filed: 03/23/2022 2:59 PM Note Text: Cardiology consultation at the request of Marcella Roberson AIR CONDITIONING MECHANIC. A copy of this consultation note will [...] day at work. 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 [facility] 03-23-2022 History of Present illness Narrative Cardiology [...] day at work. 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 ASSESSMENT/PLAN: 1. Coronary artery disease involving [place] heart with angina pectoris, unspecified vessel or [...] Scott Lott MD documented in this encounter [facility] 03-09-2022 Note HNO ID: [id number] Author: Marcella Roberson APRN.CREATIVE ASSISTANT Service: ? Author Type: Nurse Practitioner Type: [...] MG CAPSULE 2. Coronary artery disease involving [place] heart with angina pectoris, unspecified vessel or [...] in March, verbal (more content not included)... [facility] 03-09-2022 History of Present illness Narrative 03/09/2022 [...] MG CAPSULE 2. Coronary artery disease involving [place] heart with angina pectoris, unspecified vessel or [...] NITROGLYCERIN 0.4 MG SUBLINGUAL TABLET Marcella Roberson APRN.CREATIVE ASSISTANT Prescription instructions reviewed with patient as applicable. [...] which included preparing to see the patient, [id number] patient care, completing clinical documentation, obtaining and/or reviewing separately obtained history, performing a medically appropriate examination, counseling and educating the patient/family/caregiver, and ordering medications, tests, or procedures. documented in this encounter [facility] 03-03-2022 Note HNO ID: [id number] Author: Kiersten Robertson PA-C Service: ? Author Type: Physician Wage Hand Type: Progress Notes Filed: 03/03/2022 10:40 AM Note Text: Nocturnal Oximetry, RA, 02/21/2022. Recording interval: 4:52:12 High pulse: 77 Low pulse: 54 Highest spO2: 99% Lowest spO2: 90% Time with spO2 < 88%: 0 minutes Recommendation: Based on above results, patient does not require supplemental oxygen. I have received and reviewed the outside records noted above. Kiersten Robertson PA-C [facility] 03-03-2022 History of Present illness Narrative Nocturnal Oximetry, RA, 02/21/2022. Recording interval: 4:52:12 High pulse: 77 Low pulse: 54 Highest spO2: 99% Lowest spO2: 90% Time with spO2 < 88%: 0 minutes Recommendation: Based on above results, patient does not require supplemental oxygen. I have received and reviewed the outside records noted above. Kiersten Robertson PA-C [facility] documented in this encounter [facility] 03-02-2022 Miscellaneous Notes Pt notified. Appt [...] needs to call them. This nurse phoned [facility] and spoke to Corina, Sony, who reports patient has refills on all his medications except amlodipine. Pended rx for amlodipine. Notified patient there are refills on all of his Rx's at [facility], and will send refill request to provider for amlodipine. documented in this encounter [facility] 02-22-2022 Miscellaneous Notes Patient returned call and went over results, notes from Marcella Roberson AIR CONDITIONING MECHANIC with understanding. TC to patient with no [...] Marcella Roberson APRN.THOM documented in this encounter [facility] 02-22-2022 Miscellaneous Notes RX sent to [facility] by Bruna at last office visit. Li Isaac LPN Requested Prescriptions Pending Prescriptions Disp Refills tiotropium bromide (SPIRIVA RESPIMAT) 2.5 mcg/actuation inhaler 1 Each 5 Sig: Inhale 2 Puffs as instructed once daily. Pt came in for stress test today and states he is out of his inhaler. documented in this encounter [facility] 02-21-2022 Miscellaneous Notes Valid script at [facility] for Amlodipine, Losartan & Metoprolol. Daily [facility] verified in [facility] Patient has been identified by name and [...] Kiersten Harry Pss documented in this encounter [facility] 02-17-2022 Miscellaneous Notes Call to pt [...] Marcella Roberson APRN.THOM documented in this encounter [facility] 02-17-2022 Note HNO ID: [id number] Author: Mary Saavedra MD Service: ? Author Type: Physician Type: Progress Notes Filed: 02/17/2022 9:39 AM Note Text: . [facility] [place] Note Patient name: Gonzales Gustafson PCP: Nehemiah [...] Abs Lymph 1.00 - 4.00 k/uL 1.91 [place]% % 6.3 Abs [place] <0.87 k/uL 0.55 Eosin% % 0.6 Abs Eosin <0.46 k/uL 0.05 Baso% % 1.0 Abs Baso <0.11 k/uL 0.09 Immature Gran % % 0.3 Abs Immature Gran <0.10 k/uL 0.03 NRBC /100 WBC 0.0 Absolute nRBC <0.01 k/uL <0.01 Diff Type Auto Diff Type Imaging / Diagnostic Studies: CXR [facility] 01/17/22: Reviewed and shows no abnormalities PAST MEDICAL HISTORY Diagnosis Date Coronary artery disease Seeing rTe previously Hypertension Non-compliant patient Right bundle branch [...] Topics Alcohol use: No 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 [facility] 02-17-2022 Note HNO ID: [id number] Author: JEAN Ricks Service: ? Author Type: [...] DATE: February 17, 2022 TIME: 8:29 AM [facility] 02-17-2022 Note HNO ID: [id number] Author: JEAN Ricks Service: ? Author Type: Respiratory Therapist Type: Progress Notes Filed: 02/17/2022 8:29 AM Note Text: PULM FUNCTION SMARTBLOCK: Provider: Mary Saavedra MD Assisting Tech: JEAN Ricks Spirometry: 1 Exhaled Nitric Oxide: 1 [facility] 02-17-2022 History of Present illness Narrative Images from the original note were not included. . 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 documented in this encounter [facility] 02-09-2022 Miscellaneous Notes Reviewed. Marcella Roberson [...] Marcella Roberson APRN.THOM documented in this encounter [facility] 02-04-2022 Miscellaneous Notes Pt called and is notified of providers message and instructions. Pt voices understanding. Snoam Rodriguez RN Rx sent for Lipitor 40 [...] Marcella Roberson APRN.THOM documented in this encounter [facility] 02-03-2022 Miscellaneous Notes Pt called and [...] Rosalina Locke RN documented in this encounter [facility] 02-02-2022 Miscellaneous Notes Reviewed. Marcella Roberson [...] update. Thank you. documented in this encounter [facility] 02-02-2022 Note HNO ID: [id number] Author: Brooke Kebede LPN Service: ? Author Type: LICENSED NURSE Type: Progress Notes Filed: 02/02/2022 9:48 AM Note Text: EVENT MONITOR DISPOSABLE PATCH INSTRUCTIONS Patient Name: Gonzales Echols [facility] Number: [id number] Skin prepped and cleansed with alcohol Patch secured to prepped area Monitor Activated Serial #: [id number] Patient Instructed: Prescribed order timeframe Bathing guidelines Usage of event button and diary documentation Return of monitor at the end of prescribed order Call with problems [phone] or [phone]. [phone] Patient expresses a good understanding of instructions Brooke Kebede LPN [facility] 02-02-2022 Note HNO ID: [id number] Author: Marcella Roberson APRN.CREATIVE ASSISTANT Service: ? Author Type: Nurse Practitioner Type: [...] with readings 2. Coronary artery disease involving [place] heart with angina pectoris, unspecified vessel or [...] Normal axis I (more content not included)... [facility] 02-02-2022 Note HNO ID: [id number] Author: Carola White MD Service: Interventional Cardiology Author Type: Physician Type: Procedures Filed: 02/09/2022 1:07 PM Note Text: Patient Name: Gonzales Gustafson : 1960 Ordering Provider: Marcella Roberson Indication: R00.2 Palpitations Type of Monitor: Extended Monitoring-Zio Patch Enrollment Dates: 02/02/2022-02/03/2022 [facility] 02-02-2022 History of Present illness Narrative EVENT MONITOR DISPOSABLE PATCH INSTRUCTIONS Patient Name: Gonzales Echols [facility] Number: [id number] Skin prepped and cleansed with alcohol Patch secured to prepped area Monitor Activated Serial #: [id number] Patient Instructed: Prescribed order timeframe Bathing guidelines Usage of event button and diary documentation Return of monitor at the end of prescribed order Call with problems [phone] or [phone]. [phone] Patient expresses a good understanding of instructions [...] with readings 2. 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 documented in this encounter [facility] 01-19-2022 Note HNO ID: [id number] Author: Marcella Roberson APRN.CNP Service: ? Author Type: Nurse Practitioner Type: Progress Notes Filed: 01/19/2022 12:30 PM Note Text: 01/19/2022 Patient presents with: ED Follow-up: [facility] 01/17 for chest pain SUBJECTIVE: This is a 61 year old that is here today for Above Complaints. HOSPITAL/ER FOLLOW UP: Reason for visit: chest pain Which facility: [facility] Date of visit: 01/17/2022 Diagnosis: chest [...] with readings 2. Coronary artery disease involving [place] heart with angina pectoris, unspecified vessel or [...] stroke, heart attack (more content not included)... [facility] 01-19-2022 History of Present illness Narrative 01/19/2022 Patient presents with: ED Follow-up: [facility] 01/17 for chest pain SUBJECTIVE: This is a 61 year old that is here today for Above Complaints. HOSPITAL/ER FOLLOW UP: Reason for visit: chest pain Which facility: [facility] Date of visit: 01/17/2022 Diagnosis: chest [...] with readings 2. 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 Elevated hemoglobin (HCC) - ICD9: 282.7, ICD10: D58.2 - CBC + DIFF 4. SOB (shortness of breath) - ICD9: 786.05, ICD10: R06.02 - possible related to COPD vs cardiac as well - CONSULT TO CARDIOLOGY - MA CARDIAC PERF STRESS/PHARM 5. Chest pain, unspecified type - ICD9: 786.50, ICD10: R07.9 - plan as in in #2 - CONSULT TO CARDIOLOGY - MA CARDIAC PERF STRESS/PHARM 6. Encounter for screening [...] which included preparing to see the patient, [id number] patient care, completing clinical documentation, obtaining and/or reviewing separately obtained history, performing a medically appropriate examination, counseling and educating the patient/family/caregiver, and ordering medications, tests, or procedures. documented in this encounter [facility] 01-17-2022 Miscellaneous Notes Appointment scheduled for [...] for ER f/u. documented in this [facility] Diagnosis Hypertension, essential- Primary Unspecified essential hypertension Coronary artery disease involving [place] heart with angina pectoris, unspecified vessel or lesion type (HCC) Palpitations [facility] Diagnosis Elevated fasting glucose- Primary Impaired fasting glucose Coronary artery disease involving [place] heart with angina pectoris, unspecified vessel or lesion type (HCC) [facility] Diagnosis SOB (shortness of breath) Shortness of breath [facility] Diagnosis SOB (shortness of breath)- Primary Shortness of breath Cigarette smoker Tobacco use disorder documented in this encounter [facility] note* Diagnosis Hypertension, essential Unspecified essential hypertension documented in this encounter [facility] note* Diagnosis Chest pain, unspecified type- Primary SOB (shortness of breath) Shortness of breath documented in this encounter [facility] note* Diagnosis Hypertension, essential Unspecified essential hypertension documented in this encounter [facility] note* Diagnosis Hypertension, essential- Primary Unspecified essential hypertension Coronary artery disease involving [place] heart with angina pectoris, unspecified vessel or lesion type (HCC) documented in this encounter [facility] note* Diagnosis Coronary artery disease involving [place] coronary artery of [place] heart with unstable angina pectoris (HCC)- Primary Primary hypertension Unspecified essential hypertension Coronary artery disease involving [place] heart with angina pectoris, unspecified vessel or lesion type (HCC) SOB (shortness of breath) Shortness of breath Chest pain, unspecified type Unstable angina (HCC) Intermediate coronary syndrome ACS (acute coronary syndrome) (HCC) Intermediate coronary syndrome documented in this encounter [facility] note* Diagnosis Coronary artery disease involving [place] heart with angina pectoris, unspecified vessel or lesion type (HCC) SOB (shortness of breath) Shortness of breath documented in this encounter [facility] note* Diagnosis Coronary artery disease involving [place] coronary artery of [place] heart with unstable angina pectoris (HCC)- Primary History of coronary artery stent placement Postsurgical percutaneous transluminal coronary angioplasty status documented in this encounter [facility] note* Diagnosis Coronary artery disease involving [place] heart with angina pectoris, unspecified vessel or lesion type (HCC)- Primary S/P angioplasty with stent Other postprocedural status Hypertension, essential Unspecified essential hypertension Tobacco use Tobacco use disorder Non-compliant patient Personal history of noncompliance with medical treatment, presenting hazards to health documented in this encounter [facility] note* Diagnosis Hypertension, essential Unspecified essential hypertension documented in this encounter [facility] for referral (narrative)* Outpatient Procedure (Routine) - Closed Specialty Diagnoses / Procedures Referred By Contac t Referred To Contact [facility] Diagnoses Palpitations Procedures ECG COMPLETE ECG ROUTINE ECG W/LEAST 12 LDS W/I&R Marcella Roberson APRN.CREATIVE ASSISTANT [address] [place] [address] [facility] [place] [address] [place] [address] Referral ID Status Reason Start Date Expiration Date V isits Requested Visits Authorized [id number] Closed Auto-Generate d Referral 02/02/2022 04/30/2022 1 1 [facility] for referral (narrative)* Outpatient Procedure (Routine) - Closed Specialty Diagnoses / Procedures Referred By Contac t Referred To Contact [facility] Diagnoses SOB (shortness of breath) Procedures NITRIC OXIDE, EXHALED NITRIC OXIDE GAS DETERMINATION Mary Saavedra MD [address] [place] [address] [address] Referral ID Status Reason Start Date Expiration Date V isits Requested Visits Authorized [id number] Closed Auto-Generate d Referral 02/17/2022 04/30/2022 1 1 * Outpatient Procedure (Routine) - Closed Specialty Diagnoses / Procedures Referred By Contac t Referred To Contact [facility] Diagnoses SOB (shortness of breath) Procedures SPIROMETRY WITH DILATOR IF OBSTRUCTED BRNCDILAT RSPSE SPMTRY PRE&POST-BRNCDILAT ADMMary Feliciano MD [address] [place] [address] [address] Referral ID Status Reason Start Date Expiration Date V isits Requested Visits Authorized [id number] Closed Auto-Generate d Referral 02/17/2022 04/30/2022 1 1 [facility] for referral (narrative)* Outpatient Procedure (Routine) - Pending Review Specialty Diagnoses / Procedures Referred By Contac t Referred To Contact [facility] Diagnoses Coronary artery disease involving [place] heart with angina pectoris, unspecified vessel or lesion type (HCC) SOB (shortness of breath) Procedures ECHO ECHO TTHRC R-T 2D W/WOM-MODE COMPL SPEC&COLR D Scott Lott MD [address] [place] [address] [facility] [address] [address] Referral ID Status Reason Start Date Expiration Date Visits Requested Visits Authorized [id number] Pending Review Auto-Generat ed Referral 03/23/2023 1 1 * Outpatient Procedure (Routine) - Closed Specialty Diagnoses / Procedures Referred By Contac t Referred To Contact [facility] [place] Diagnoses Coronary artery disease involving [place] heart with angina pectoris, unspecified vessel or lesion type (HCC) Procedures ECG COMPLETE ECG ROUTINE ECG W/LEAST 12 LDS W/I&R Scott Lott MD [address] [place] [address] [facility] [place] [address] [place] [id number] Referral ID Status Reason Start Date Expiration Date V isits Requested Visits Authorized [id number] Closed Auto-Generate d Referral 03/23/2022 03/23/2023 1 1 [facility] for referral (narrative)* Outpatient Procedure (Routine) - Closed Specialty Diagnoses / Procedures Referred By Contac t Referred To Contact [facility] Diagnoses Coronary artery disease involving [place] heart with angina pectoris, unspecified vessel or lesion type (HCC) SOB (shortness of breath) Procedures ECHO ECHO TTHRC R-T 2D W/WOM-MODE COMPL SPEC&COLR Scott Melara MD [address] [place] [address] [facility] [address] [address] Referral ID Status Reason Start Date Expiration Date V isits Requested Visits Authorized [id number] Closed Auto-Generate d Referral 03/30/2022 04/30/2022 1 1 ENCIA [facility] for visit Narrative* Outpatient Procedure (Routine) - Closed Specialty Diagnoses / Procedures Referred By Nathanael reynolds Referred To Contact [facility] Diagnoses Coronary artery disease involving [place] heart with angina pectoris, unspecified vessel or lesion type (HCC) SOB (shortness of breath) Procedures ECHO ECHO TTHRC R-T 2D W/WOM-MODE COMPL SPEC&COLR D Scott Lott MD [address] [place] [address] [facility] [place] [address] [place] [address] Referral ID Status Reason Start Date Expiration Date V isits Requested Visits Authorized [id number] Closed Auto-Generate d Referral 03/30/2022 04/30/2022 1 1 [facility] Summary Purpose Family History No Family [...] CONSULT LUNG CANCER SCREENING CLINIC Podlogar, Marcella, INFORMATION OFFICER.CREATIVE ASSISTANT [address] [place] [address] Referral ID Status Reason Start Date Expiration Date Visits Requested Visits Authorized [id number] Ref Not Required PCP Requested Referral 01/19/2022 04/19/2022 1 1 Specialty Diagnoses / Procedures Referred By Nathanael reynolds Referred To Contact [facility] Diagnoses Coronary artery disease involving [place] heart with angina pectoris, unspecified vessel or lesion type (HCC) SOB (shortness of breath) Chest pain, unspecified type Procedures NM CARDIAC PERF STRESS/PHARM MYOCARDIAL SPECT MULTIPLE STUDIES PodlogarMarcella APRN.CREATIVE ASSISTANT [address] [place] [address] [facility] [address] [place] [address] Referral ID Status Reason Start Date Expiration Date Visits Requested Visits Authorized [id number] Pending Review Auto-Generat ed Referral 01/19/2022 02/18/2023 1 1 Specialty Diagnoses / Procedures Referred By Contac t Referred To Contact Cardiology Diagnoses Coronary artery disease involving [place] heart with angina pectoris, unspecified vessel or lesion type (HCC) SOB (shortness of breath) Chest pain, unspecified type Procedures CONSULT TO CARDIOLOGY OFFICE/OUTPATIENT [facility] HIGH MDM 60-74 MINUTES PodlogMarcella smallwood APRN.CREATIVE ASSISTANT [address] [place] [address] Referral ID Status Reason Start Date Expiration Date Visits Requested Visits Authorized [id number] Authorized PCP Requested Referral 01/19/2022 01/19/2023 1 [...] DATE CREATED AUTHOR AUTHOR'S ORGANIZ ATION 04/07/2022 [facility] DATE CREATED AUTHOR AUTHOR'S ORGANIZ ATION 04/22/2022 [facility] DATE CREATED AUTHOR AUTHOR'S ORGANIZ ATION 05/24/2022 [facility] Source Comments (unrecognize d section and content) In the event this informatio n is protected by the Federal Confidentiality of Alcohol and Drug Abuse Patient Records regulations: The Federal rules restrict any use of the information to criminally investigate or prosecute any alcohol or drug abuse patient.[facility] Hospital[facility] the event this information is protected by the Federal Confidentiality of Alcohol and Drug Abuse Patient Records regulations: The Federal rules restrict any use of the information to criminally investigate or prosecute any alcohol or drug abuse patient.[facility] HospitalIn the event this information is protected by the Federal Confidentiality of Alcohol and Drug Abuse Patient Records regulations: The Federal rules restrict any use of the information to criminally investigate or prosecute any alcohol or drug abuse patient.[facility] HospitalIn the event this information is protected by the Federal Confidentiality of Alcohol and Drug Abuse Patient Records regulations: The Federal rules restrict any use of the information to criminally investigate or prosecute any alcohol or drug abuse patient.[facility] HospitalIn the event this information is protected by the Federal Confidentiality of Alcohol and Drug Abuse Patient Records regulations: The Federal rules restrict any use of the information to criminally investigate or prosecute any alcohol or drug abuse patient.[facility] HospitalIn the event this information is protected by the Federal Confidentiality of Alcohol and Drug Abuse Patient Records regulations: The Federal rules restrict any use of the information to criminally investigate or prosecute any alcohol or drug abuse patient.[facility] HospitalIn the event this information is protected by the Federal Confidentiality of Alcohol and Drug Abuse Patient Records regulations: The Federal rules restrict any use of the information to criminally investigate or prosecute any alcohol or drug abuse patient.[facility] HospitalIn the event this information is protected by the Federal Confidentiality of Alcohol and Drug Abuse Patient Records regulations: The Federal rules restrict any use of the information to criminally investigate or prosecute any alcohol or drug abuse patient.[facility] HospitalIn the event this information is protected [...] or prosecute any alcohol or drug abuse patient.[facility] HospitalIn the event this information is protected by the Federal Confidentiality of Alcohol and Drug Abuse Patient Records regulations: The Federal rules restrict any use of the information to criminally investigate or prosecute any alcohol or drug abuse patient.[facility] HospitalIn the event this information is protected by the Federal Confidentiality of Alcohol and Drug Abuse Patient Records regulations: The Federal rules restrict any use of the information to criminally investigate or prosecute any alcohol or drug abuse patient.[facility] HospitalIn the event this information is protected by the Federal Confidentiality of Alcohol and Drug Abuse Patient Records regulations: The Federal rules restrict any use of the information to criminally investigate or prosecute any alcohol or drug abuse patient.[facility] HospitalIn the event this information is protected by the Federal Confidentiality of Alcohol and Drug Abuse Patient Records regulations: The Federal rules restrict any use of the information to criminally investigate or prosecute any alcohol or drug abuse patient.[facility] HospitalIn the event this information is protected by the Federal Confidentiality of Alcohol and Drug Abuse Patient Records regulations: The Federal rules restrict any use of the information to criminally investigate or prosecute any alcohol or drug abuse patient.[facility] HospitalIn the event this information is protected by the Federal Confidentiality of Alcohol and Drug Abuse Patient Records regulations: The Federal rules restrict any use of the information to criminally investigate or prosecute any alcohol or drug abuse patient.[facility] HospitalIn the event this information is protected by the Federal Confidentiality of Alcohol and Drug Abuse Patient Records regulations: The Federal rules restrict any use of the information to criminally investigate or prosecute any alcohol or drug abuse patient.[facility] HospitalIn the event this information is protected by the Federal Confidentiality of Alcohol and Drug Abuse Patient Records regulations: The Federal rules restrict any use of the information to criminally investigate or prosecute any alcohol or drug abuse patient.[facility] HospitalIn the event this information is protected by the Federal Confidentiality of Alcohol and Drug Abuse Patient Records regulations: The Federal rules restrict any use of the information to criminally investigate or prosecute any alcohol or drug abuse patient.[facility] HospitalIn the event this information is protected by the Federal Confidentiality of Alcohol and Drug Abuse Patient Records regulations: The Federal rules restrict any use of the information to criminally investigate or prosecute any alcohol or drug abuse patient.[facility] HospitalIn the event this information is protected by the Federal Confidentiality of Alcohol and Drug Abuse Patient Records regulations: The Federal rules restrict any use of the information to criminally investigate or prosecute any alcohol or drug abuse patient.[facility] HospitalIn the event this information is protected by the Federal Confidentiality of Alcohol and Drug Abuse Patient Records regulations: The Federal rules restrict any use of the information to criminally investigate or prosecute any alcohol or drug abuse patient.[facility] HospitalIn the event this information is protected by the Federal Confidentiality of Alcohol and Drug Abuse Patient Records regulations: The Federal rules restrict any use of the information to criminally investigate or prosecute any alcohol or drug abuse patient.[facility] HospitalIn the event this information is protected by the Federal Confidentiality of Alcohol and Drug Abuse Patient Records regulations: The Federal rules restrict any use of the information to criminally investigate or prosecute any alcohol or drug abuse patient.[facility] HospitalIn the event this information is protected by the Federal Confidentiality of Alcohol and Drug Abuse Patient Records regulations: The Federal rules restrict any use of the information to criminally investigate or prosecute any alcohol or drug abuse patient.[facility] HospitalIn the event this information is protected by the Federal Confidentiality of Alcohol and Drug Abuse Patient Records regulations: The Federal rules restrict any use of the information to criminally investigate or prosecute any alcohol or drug abuse patient.[facility] HospitalIn the event this information is protected by the Federal Confidentiality of Alcohol and Drug Abuse Patient Records regulations: The Federal rules restrict any use of the information to criminally investigate or prosecute any alcohol or drug abuse patient.[facility] HospitalIn the event this information is protected by the Federal Confidentiality of Alcohol and Drug Abuse Patient Records regulations: The Federal rules restrict any use of the information to criminally investigate or prosecute any alcohol or drug abuse patient.[facility] HospitalIn the event this information is protected by the Federal Confidentiality of Alcohol and Drug Abuse Patient Records regulations: The Federal rules restrict any use of the information to criminally investigate or prosecute any alcohol or drug abuse patient.[facility] HospitalIn the event this information is protected by the Federal Confidentiality of Alcohol and Drug Abuse Patient Records regulations: The Federal rules restrict any use of the information to criminally investigate or prosecute any alcohol or drug abuse patient.[facility] HospitalIn the event this information is protected by the Federal Confidentiality of Alcohol and Drug Abuse Patient Records regulations: The Federal rules restrict any use of the information to criminally investigate or prosecute any alcohol or drug abuse patient.[facility] Reason for Visit (unrecogniz ed section and content) Reason Comments ED Follow-up [facility] 01/17 for chest p ain Reason Comments Blood Pressure 2 week follow up Reason Comments Patient Request Reason Comments Results Medication Update Reason Comments Spirometry Specialty Diagnoses / Procedures Referred By Contac t Referred To Contact [facility] Diagnoses SOB (shortness of breath) Procedures NITRIC OXIDE, EXHALED NITRIC OXIDE GAS DETERMINATION Mary Saavedra MD [address] [place] [address] Respiratory [place] [address] [place] [address] Referral ID Status Reason Start Date Expiration Date V isits Requested Visits Authorized [id number] Closed Auto-Generate d Referral 02/17/2022 04/30/2022 1 [...] Contact Cardiology Diagnoses Coronary artery disease involving [place] heart with angina pectoris, unspecified vessel or lesion type (HCC) SOB (shortness of breath) Chest pain, unspecified type Procedures CONSULT TO CARDIOLOGY OFFICE/OUTPATIENT NEW HIGH MDM 60-74 MINUTES Marcella Roberson APRN.THOM [address] [place] [address] Referral ID Status Reason Start Date Expiration Date V isits Requested Visits Authorized [id number] Closed PCP Requested Referral 01/19/2022 01/19/2023 1 1 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 Reason Onset Date Comments Transition Of Care 04/01/2022 TCM initial o utreach-dc'd from [facility] 03/31/22-left AMA Reason Comments Cardiac Rehab Referral Reason Comments Hospital F/U Transition Of Care Reason Comments Cardiac Rehab Reason Comments Return To Work Letter Reason Comments Refill Request Care Teams (unrecognized sec tion and content) Progressive Care Manager Relationship Specialty Start Date End Date Nehemiah Jacob MD [address] [place], [place] [phone] PCP - General Family Medicine 05/16/16 Progressive Care Manager Relationship Specialty Start Date End Date Nehemiah Jacob MD [address] [place], [place] [id number] PCP - General Family Medicine 05/16/16 Progressive Care Manager Relationship Specialty Start Date End Date Nehemiah Jacob MD [address] [place], [place] [phone] PCP - General Family Medicine 05/16/16 Progressive Care Manager Relationship Specialty Start Date End Date Nehemiah Jacob MD [address] [place] [address] PCP - General Family Medicine 05/16/16 Progressive Care Manager Relationship Specialty Start Date End Date Nehemiah Jacob MD [address] [facility] [address] PCP - General Family Medicine 05/16/16 Progressive Care Manager Relationship Specialty Start Date End Date Nehemiah Jacob MD [address] [facility] [place] [address] PCP - General Family Medicine 05/16/16 Progressive Care Manager Relationship Specialty Start Date End Date Nehemiah Jacob MD [address] [facility] [place] [address] PCP - General Family Medicine 05/16/16 Progressive Care Manager Relationship Specialty Start Date End Date Nehemiah Jacob MD [address] [facility] [place] [address] PCP - General Family Medicine 05/16/16 Progressive Care Manager Relationship Specialty Start Date End Date Nehemiah Jacob MD [address] [facility] [place] [address] PCP - General Family Medicine 05/16/16 Progressive Care Manager Relationship Specialty Start Date End Date Nehemiah Jacob MD [address] [facility] [place] [address] PCP - General Family Medicine 05/16/16 Progressive Care Manager Relationship Specialty Start Date End Date Nehemiah Jacob MD [address] [facility] [place] [address] PCP - General Family Medicine 05/16/16 Progressive Care Manager Relationship Specialty Start Date End Date Nehemiah Jacob MD [address] [facility] [place] [address] PCP - General Family Medicine 05/16/16 Progressive Care Manager Relationship Specialty Start Date End Date Nehemiah Jacob MD [address] [facility] [place] [address] PCP - General Family Medicine 05/16/16 Progressive Care Manager Relationship Specialty Start Date End Date Nehemiah Jacob MD [address] [facility] [place] [address] PCP - General Family Medicine 05/16/16 Progressive Care Manager Relationship Specialty Start Date End Date Nehemiah Jacob MD [address] [facility] [place] [address] PCP - General Family Medicine 05/16/16 Progressive Care Manager Relationship Specialty Start Date End Date Nehemiah Jacob MD [address] [facility] [place] [address] PCP - General Family Medicine 05/16/16 Progressive Care Manager Relationship Specialty Start Date End Date Nehemiah Jacob MD [address] [facility] [place] [address] PCP - General Family Medicine 05/16/16 Progressive Care Manager Relationship Specialty Start Date End Date Nehemiah Jacob MD [address] [facility] [place] [address] PCP - General Family Medicine 05/16/16 Progressive Care Manager Relationship Specialty Start Date End Date Nehemiah Jacob MD [address] [facility] [place] [address] PCP - General Family Medicine 05/16/16 Progressive Care Manager Relationship Specialty Start Date End Date Nehemiah Jacob MD [address] [facility] [place] [address] PCP - General Family Medicine 05/16/16 Progressive Care Manager Relationship Specialty Start Date End Date Nehemiah Jacob MD [address] [place] [address] PCP - General Family Medicine 05/16/16 FOR [...] BE BASED ON THE PRIMARY CLINICAL RECORDS. [employer] provides no warranty or guarantee of the accuracy or completeness of information in this document.
--- NOTE | 2023-07-13 02:54 | EKG12_ITS ---
Test Reason : CP Blood Pressure : / mmHG Vent. Rate : 072 BPM Atrial Rate : 072 BPM P-R Int : 150 ms QRS Dur : 116 ms QT Int : 400 ms P-R-T Axes : 054 078 178 degrees QTc Int : 438 ms Normal sinus rhythm Left ventricular hypertrophy with QRS widening and repolarization abnormality ( [place] product ) Possible Inferior infarct , age undetermined Abnormal ECG When compared with ECG of 12-JUL-2023 21:45, MANUAL COMPARISON REQUIRED, DATA IS UNCONFIRMED Confirmed by Jarod Chu ([id number]), industrial editor KANU POLLARD ([id number]) on 07/14/2023 10:22:30 AM Referred By: Confirmed By:Jarod Chu
--- NOTE | 2023-07-13 02:54 | ECHOD_ITS ---
Reason For Study: NSTEMI Procedure This was a 2D Doppler, Color Flow transthoracic echocardiogram. Exam performed portable in patient room. Left Ventricle Normal LV size. Severe concentric left ventricular hypertrophy. Left ventricular systolic function is normal. The left ventricular ejection fraction is 60 %. Stage 2 diastolic dysfunction. No regional wall motion abnormalities noted. Right Ventricle Normal RV size. Normal systolic function. Atria Normal left atrium. Normal right atrium. Mitral Valve Normal mitral valve. Tricuspid Valve Normal tricuspid valve. Aortic Valve Trisinus/trileaflet aortic valve. Trivial aortic valve insufficiency. Pulmonic Valve Normal pulmonic valve. Great Vessels Normal aortic root. The pulmonary artery is normal size. Inferior vena cava collapse with respiration. Pericardium/Pleural No pericardial effusion. MMode/2D Measurements & Calculations LVIDd: 4.8 cm IVSd: 1.7 cm LAV(MOD-bp): 45.2 ml LVIDs: 3.0 cm LVPWd: 1.4 cm LAV(MOD-bp) Indexed: 18.7 ml/m2 RVDd: 3.3 cm FS: 38.2 % LAV(MOD-sp2): 39.8 ml LAV(MOD-sp4): 47.3 ml SV(MOD-sp4): 62.3 ml SV(sp4-el): 65.0 ml LVAd ap4: 32.7 cm2 LVLd ap4: 8.2 cm EDV(MOD-sp4): 106.8 ml EDV(sp4-el): 110.1 ml LVAs ap4: 19.6 cm2 LVLs ap4: 7.2 cm ESV(MOD-sp4): 44.5 ml ESV(sp4-el): 45.1 ml EF(MOD-sp4): 58.3 % EF(sp4-el): 59.0 % LA A4 area: 17.7 cm2 RA A4 area: 16.0 cm2 TAPSE: 1.6 cm Time Measurements MV dec time: 0.19 sec Doppler Measurements & Calculations MV E max pernell: 78.1 cm/sec Lat Peak E' Pernell: 4.9 cm/sec Med Peak E' Pernell: 5.7 cm/sec MV A max pernell: 55.9 cm/sec E/E' lat: 16.1 E/E' med: 13.7 MV E/A: 1.4 Ao V2 max: 113.6 cm/sec AI max pernell: 383.7 cm/sec LV V1 max: 80.6 cm/sec Ao max P.2 mmHg AI max P.9 mmHg LV V1 max P.6 mmHg AI dec slope: 176.3 cm/sec2 AI P1/2t: 637.4 msec PA V2 max: 66.8 cm/sec ECHO/Echo Complete Interpretation Summary Normal LV size. Severe concentric left ventricular hypertrophy. The left ventricular ejection fraction is 60 %. Left ventricular systolic function is normal. Stage 2 diastolic dysfunction. The global longitudinal strain is severely abnormal. The global longitudinal st rain = -10.9% (abnormal). Ordering Physician: Brock Russo Performed By: Breanna Lazaro RDCS
[2023-07-13] MEDS: Acetaminophen 325 MG Tablet 650 MG PO (03:37)
[2023-07-13 04:18] LABS: Hematocrit 44.4 % (40-54); Hemoglobin 15.7 g/dL (13.0-16.5); Mean Corp Hgb Conc 35.4 g/dL (32-36); Mean Corpuscular Hgb 30.1 pg (27.0-32.0); Mean Corpuscular Volume 85.2 fL (80-94); Mean Platelet Vol. 9.2 fl (6.2-12.0); Platelet Count 180 K/mm3 (150-450); RBC Distribution Width CV 13.7 % (11.6-14.6); RBC Distribution Width SD 41.9 fl (35.1-43.9); Red Blood Count 5.21 M/mm3 (4.6-6.2); White Blood Count 9.4 K/mm3 (4.4-11.0)
[2023-07-13 04:33] LABS: D-Dimer Quantitative (DVT/PE) 0.37 FEU/ug/m (0.27-0.49)
[2023-07-13 04:45] LABS: Troponin-I HS 850 pg/mL (3.0-78.0)
--- NOTE | 2023-07-13 04:45 | NURSING ---
pts primary rn aware of troponin of 850 at this time.
[2023-07-13 04:58] LABS: ALB/GLOB Ratio 0.9 RATIO (0.9-2.4); AST(SGOT) 22 U/L (15-37); Alanine Aminotransfer ALT/SGPT 30 U/L (16-61); Albumin, Serum 3.3 g/dL (3.2-5.0); Alkaline Phosphatase 86 U/L (45-117); Anion Gap 8 (5-15); BUN 18 mg/dL (7-18); BUN/Creat Ratio 16.8 RATIO (10-20); Calcium,Total 8.3 mg/dL (8.5-10.1); Chloride 106 mmol/L (98-107); Cholesterol 144 mg/dL (200); Creatinine, Serum 1.07 mg/dL (0.70-1.30); EST Glomerular Filtration Rate 75 mL/min (>60); Est Glom Filt Rate - Afr Amer 90 mL/min (>60); Estimated Creatinine Clearance 100.07 ml/min; Globulin 3.7 g/dL (2.2-4.2); Glucose 147 mg/dL (74-106); High Density Lipoprotein 24 mg/dL; Potassium 3.9 mmol/L (3.5-5.1); Sodium Level 140 mmol/L (136-145); Thyroid Stim Hormone (TSH) 2.21 uIU/mL (0.358-3.74); Triglycerides 288 mg/dL; Very Low Density Lipoprotein 58 mg/dL (5-40)
[2023-07-13] MEDS: Morphine 2 MG/ML Syringe IV (05:09)
[2023-07-13] MEDS: 0.9% Saline Lock 10 ML Syringe IV ×2 (05:09→08:23)
--- NOTE | 2023-07-13 07:25 | CON.PCM.CA_ITS ---
Assessment & Plan Assessment/Plan (1) NSTEMI, initial episode of care: PLAN: He presents with chest discomfort and is noted to have a non-ST elevation myocardial infarction. At this point in time I would recommend that we treat him with aspirin, and schedule him for a left heart catheterization today. The risk benefits alternatives have been discussed with him he understands and agrees to proceed. I have also suggested that he see a social service consult to help him be able to manage his medications. Smoking cessation has also been emphasized. Cardiac catheterization today demonstrated the following: Distal left main with 90% stenosis Ostial LAD with 90% stenosis Ostial left circumflex artery with high-grade stenosis and mild disease Dominant right coronary artery previously stented in the midsegment with mild in-stent stenosis in the posterolateral vessel with mild to moderate in-stent stenosis Preserved left ventricular ejection fraction by echocardiogram Based on the above angiographic findings I would recommend that we transfer the patient to a tertiary care facility for coronary bypass surgery. (2) Hypertensive emergency: PLAN: His blood pressure is elevated at this time. Will recommend him going back on the losartan, beta-joey, and add a calcium channel joey. An echocardiogram should be performed to assess his ventricular function and depending on the findings further recommendations will be made. (3) Hyperlipidemia: PLAN: He does have a history of hyperlipidemia and he will continue with aggressive risk factor modification with high intensity statin. HPI Consult Data Date of Consult: 07/13/23 HPI Narrative HPI Narrative: GONZALES SUMNER, is a 62 M who presents for evaluation of chest discomfort. He has a history of hypertension, hyperlipidemia, tobacco abuse, coronary artery disease status post previous stenting. He has not had any compliance with his medical therapy including antiplatelet medications for over 3 months after losing his job. He presented to the emergency room with chest discomfort which he said started a day prior to admission, it was substernal, pressure-like, se piero and nonradiating. On presentation to the emergency room he was noted to have a blood pressure of 235/135 mmHg. He denied any associated fever chills nausea vomiting or diaphoresis. In the emergency room his EKG demonstrated sinus tachycardia with nonspecific changes and his initial troponin was elevated to over 400. Cardiology was called for an evaluation and help with management. He is currently pain-free. However his troponin is still elevated. [facility] Medical History Arthritis Atherosclerotic heart disease [place] coronary artery w/angina pectoris Cellulitis of left elbow COPD (chronic obstructive pulmonary disease) Essential (primary) hypertension Heart disease Right bundle branch block SOB (shortness of breath) Stomach ulcer Uncontrolled hypertension Vision loss of right eye Home Medications aspirin 81 mg tablet,delayed release 81 mg PO DAILY #30 tabs 01/17/22 [Rx Last Taken Unknown] losartan 100 mg tablet (Cozaar) 100 mg PO DAILY #30 tabs 01/17/22 [Rx Last Taken Unknown] metoprolol succinate 50 mg tablet,extended release 24 hr 50 mg PO DAILY #30 tabs 01/17/22 [Rx Last Taken Unknown] Allergy/AdvReac Type Severity Reaction Status Date / Time No Known Allergies Allergy Verified 01/17/22 09:35 Family History Mother Cancer Father Hypertension Diabetes Brother Hypertension COPD (chronic obstructive pulmonary disease) CAD (coronary artery disease) Surgical History History of left heart catheterization Social History Smoking Status: Current every day smoker tobacco type: cigarettes alcohol intake: never substance use type: does not use ROS Constitutional Constitutional: Denies fever(s) or weight loss Eyes Eyes: Reports systems reviewed and no addt'l complaints, except as documented ENT HEENT: Reports systems reviewed and no addt'l complaints, except as documented Cardiovascular Cardiovascular: Reports chest pain at rest and chest pain with activity; Denies dyspnea at rest, dyspnea on exertion, edema, palpitations or paroxysmal nocturnal dyspnea Respiratory/Chest Respiratory/Chest: Denies dyspnea on exertion, productive cough, shortness of b reath at rest or shortness of breath with exertion Gastrointestinal Gastrointestinal: Denies change in bowel habits, nausea, vomiting or weight changes Genitourinary Genitourinary: Denies difficulty urinating Musculoskeletal Musculoskeletal: Denies joint stiffness or muscle weakness Integumentary Integumentary: Denies lesions Neurologic Neurologic: Denies dizziness or syncope Psychiatric Psychiatric: Denies anxiety Endocrine Endocrinology: Denies excessive sweating or fatigue Hematologic/Lymphatic Hematologic/Lymphatic: Denies anemia Allergic/Immunologic Allergic/Immunologic: Denies seasonal rhinorrhea Physical Exam Const alert, oriented x3 and no apparent distress General Appearance: cooperative HEENT hearing grossly normal bilaterally Head and Scalp: atraumatic Eyes EOMs intact bilaterally Neck General: normal visual inspection Chest inspection of chest normal and palpation of chest normal Resp normal respiratory effort Auscultation: clear to auscultation bilaterally Cardio regular rate, regular rhythm, S1 normal heart sound and S2 normal heart sound Jugular Venous Distention: JVD GI normal to inspection, nondistended, normoactive bowel sounds Extremity normal capillary refill and no pedal edema Peripheral Pulses: Yes pulses 2+ throughout and femoral pulses present Skin no rashes or lesions noted Neuro oriented x3 and CN's II-XII intact bilaterally Psych Appearance: grossly normal and appropriate Risk Stratification Risk Stratification Applicable: Yes Age >/= 65: No >/= 3 CAD Risk Factors (HTN, HLD, DM, family hx of CAD, or current smoker): Yes Aspirin Use in the Past 7 Days: No Severe Angina (>/= episodes in 24 hours): Yes EKG ST Changes >/= 0.5mm: No Positive Cardiac Marker: Yes ALIA Risk Stratification Score: 3 ALIA % Risk: 13% Risk Objective Data Vital Signs: Vital Signs Temp Pulse Resp BP Pulse Ox O2 Del Method 97.7 F L 64 16 150/80 H 98 Room Air 07/13/23 03:00 07/13/23 03:00 07/13/23 03:00 07/13/23 03:00 07/13/23 03:00 07/13/23 03:00 Oxygen Delivery Method Room Air Weight: 244 lb 1.6 oz Body Mass Index (BMI) 29.7 Intake & Output: Intake and Output for Last 24 Hours 07/11/23 07/12/23 07/13/23 23:59 23:59 23:59 Intake Total 0 / 0 Output Total 0 / 0 Balance 0 / 0 Lab / Micro Data 07/13/23 04:03 07/13/23 04:03 Labs: Laboratory Results - last 24 hr 07/12/23 22:10: WBC 8.9, RBC 5.66, Hgb 16.9 H, Hct 47.2, MCV 83.4, MCH 29.9, MCHC 35.8, RDW Std Deviation 40.4, RDW Coeff of Juan José 13.5, Plt Count 192, MPV 9.0, Immature Gran % (Auto) 0.600, Neut % (Auto) 61.7, Lymph % (Auto) 26.6, [place] % (Auto) 7.1, Eos % (Auto) 2.5, Baso % (Auto) 1.5 H, Absolute Neuts (auto) 5.5, Absolute Lymphs (auto) 2.36, Nucleated RBC % 0, PT 13.6, INR 1.0, APTT 30.7, D- Dimer Quant (PE/DVT) 0.42, Sodium 139, Potassium 3.5, Chloride 107, Carbon Dioxide 25.0, Anion Gap 7, BUN 17, Creatinine 1.18, Estim Creat Clear Calc 91.03, Est GFR (MDRD) Af Amer 81, Est GFR (MDRD) Non-Af 67, BUN/Creatinine Ratio 14.4, Glucose 195 H, Calcium 8.6, Magnesium 2.1, Troponin I High Sens 458 H* 07/13/23 00:25: Troponin I High Sens 723 H* 07/13/23 04:03: WBC 9.4, RBC 5.21, Hgb 15.7, Hct 44.4, MCV 85.2, MCH 30.1, MCHC 35.4, RDW Std Deviation 41.9, RDW Coeff of Juan José 13.7, Plt Count 180, MPV 9.2, D- Dimer Quant (PE/DVT) 0.37, Sodium 140, Potassium 3.9, Chloride 106, Carbon Dioxide 26.0, Anion Gap 8, BUN 18, Creatinine 1.07, Estim Creat Clear Calc 100.07, Est GFR (MDRD) Af Amer 90, Est GFR (MDRD) Non-Af 75, BUN/Creatinine Ratio 16.8, Glucose 147 H, Calcium 8.3 L, Total Bilirubin 0.60, AST 22, ALT 30, Alkaline Phosphatase 86, Troponin I High Sens 850 H*, Total Protein 7.0, Albumin 3.3, Globulin 3.7, Albumin/Globulin Ratio 0.9, Triglycerides 288 H, Cholesterol 144, LDL Cholesterol 62, VLDL Cholesterol 58 H, HDL Cholesterol 24 L, TSH 2.21 Cardiology Labs/Tests 07/12/23 22:10: WBC 8.9, RBC 5.66, Hgb 16.9 H, Hct 47.2, MCV 83.4, MCH 29.9, MCHC 35.8, Plt Count 192, MPV 9.0, Immature Gran % (Auto) 0.600, Neut % (Auto) 61.7, Lymph % (Auto) 26.6, [place] % (Auto) 7.1, Eos % (Auto) 2.5, Baso % (Auto) 1.5 H, Absolute Neuts (auto) 5.5, Nucleated RBC % 0, PT 13.6, INR 1.0, APTT 30.7, D-Dimer Quant (PE/DVT) 0.42, Sodium 139, Potassium 3.5, Chloride 107, Carbon Dioxide 25.0, Anion Gap 7, BUN 17, Creatinine 1.18, Est GFR (MDRD) Af Amer 81, Est GFR (MDRD) Non-Af 67, BUN/Creatinine Ratio 14.4, Glucose 195 H, Calcium 8.6, Magnesium 2.1 07/13/23 04:03: WBC 9.4, RBC 5.21, Hgb 15.7, Hct 44.4, MCV 85.2, MCH 30.1, MCHC 35.4, Plt Count 180, MPV 9.2, D-Dimer Quant (PE/DVT) 0.37, Sodium 140, Potassium 3.9, Chloride 106, Carbon Dioxide 26.0, Anion Gap 8, BUN 18, Creatinine 1.07, Est GFR (MDRD) Af Amer 90, Est GFR (MDRD) Non-Af 75, BUN/Creatinine Ratio 16.8, Glucose 147 H, Calcium 8.3 L, Total Bilirubin 0.60, Triglycerides 288 H, Cholesterol 144, LDL Cholesterol 62, VLDL Cholesterol 58 H, HDL Cholesterol 24 L Rhythm: EKG: ECHO: Stress Test: Cardiac Cath: PCI: CT Surgery: Holter monitor: EPS: PPM: CXR: Chest CT Scan: Radiography Diagnostic Testing: Radiology Impression Chest X-Ray 07/12/23 22:12 IMPRESSION: No radiographic evidence of acute cardiopulmonary disease. Electronically Signed: Kelley More MD at 23:31 EDT ,
--- NOTE | 2023-07-13 08:21 | PN.HOSP_ITS ---
Reason for Visit Reason for Visit: Diagnoses Essential (primary) hypertension (07/13/23) Non-ST elevation (NSTEMI) myocardial infarction (07/13/23) Tobacco use (07/13/23) Patient's noncompliance with other medical treatment and regimen due to unspecified reason (07/13/23) Subjective Subjective No chest pain. Is having a right-sided headache. Objective Data Objective Data Vital Signs: Vital Signs Temp Pulse Resp BP Pulse Ox O2 Del Method 36.4 C L 53 L 16 122/76 H 96 Room Air 07/13/23 08:19 07/13/23 08:19 07/13/23 08:19 07/13/23 08:19 07/13/23 08:19 07/13/23 08:19 Oxygen Delivery Method Room Air Weight: 110.722 kg Body Mass Index (BMI) 29.7 Intake & Output: Intake and Output for Last 24 Hours 07/11/23 07/12/23 07/13/23 23:59 23:59 23:59 Intake Total 0 / 0 Output Total 0 / 0 Balance 0 / 0 Lab / Micro Data 07/13/23 04:03 07/13/23 04:03 Labs: Laboratory Results - last 24 hr 07/12/23 22:10: WBC 8.9, RBC 5.66, Hgb 16.9 H, Hct 47.2, MCV 83.4, MCH 29.9, MCHC 35.8, RDW Std Deviation 40.4, RDW Coeff of Juan [place] 13.5, Plt Count 192, MPV 9.0, Immature Gran % (Auto) 0.600, Neut % (Auto) 61.7, Lymph % (Auto) 26.6, [place] % (Auto) 7.1, Eos % (Auto) 2.5, Baso % (Auto) 1.5 H, Absolute Neuts (auto) 5.5, Absolute Lymphs (auto) 2.36, Nucleated RBC % 0, PT 13.6, INR 1.0, APTT 30.7, D- Dimer Quant (PE/DVT) 0.42, Sodium 139, Potassium 3.5, Chloride 107, Carbon Dioxide 25.0, Anion Gap 7, BUN 17, Creatinine 1.18, Estim Creat Clear Calc 91.03, Est GFR (MDRD) Af Amer 81, Est GFR (MDRD) Non-Af 67, BUN/Creatinine Ratio 14.4, Glucose 195 H, Calcium 8.6, Magnesium 2.1, Troponin I High Sens 458 H* 07/13/23 00:25: Troponin I High Sens 723 H* 07/13/23 04:03: WBC 9.4, RBC 5.21, Hgb 15.7, Hct 44.4, MCV 85.2, MCH 30.1, MCHC 35.4, RDW Std Deviation 41.9, RDW Coeff of Juan [place] 13.7, Plt Count 180, MPV 9.2, D- Dimer Quant (PE/DVT) 0.37, Sodium 140, Potassium 3.9, Chloride 106, Carbon Dioxide 26.0, Anion Gap 8, BUN 18, Creatinine 1.07, Estim Creat Clear Calc 100.07, Est GFR (MDRD) Af Amer 90, Est GFR (MDRD) Non-Af 75, BUN/Creatinine Ratio 16.8, Glucose 147 H, Calcium 8.3 L, Total Bilirubin 0.60, AST 22, ALT 30, Alkaline Phosphatase 86, Troponin I High Sens 850 H*, Total Protein 7.0, Albumin 3.3, Globulin 3.7, Albumin/Globulin Ratio 0.9, Triglycerides 288 H, Cholesterol 144, LDL Cholesterol 62, VLDL Cholesterol 58 H, HDL Cholesterol 24 L, TSH 2.21 Radiography Diagnostic Testing: Radiology Impression Chest X-Ray 07/12/23 22:12 IMPRESSION: No radiographic evidence of acute cardiopulmonary disease. Electronically Signed: Kelley More MD at 23:31 EDT Reading Location ID and State: [facility] / [place] Tel , Service support , Physical Exam Const alert and no apparent distress HEENT head/scalp atraumatic Psych affect normal Assessment & Plan Assessment/Plan (1) NSTEMI, initial episode of care: (2) Uncontrolled hypertension: PLAN: Plan NSTEMI * Initial troponin of 458 pg/mL present on admission with second troponin trending upward to 723 pg/mL in the setting of a known history of CAD; s/p stent * ASA, Plavix, statin and full-dose Lovenox plus prn SL NTG. * Left heart cath had distal left main disease. Dr. Gautam reached out to [facility] and pt has been accepted by Dr. Claire. Uncontrolled Hypertension * Improved. Likely 2/2 Medical Noncompliance likely precipitating #1 - Restart home regimen plus give prn IV Hydralazine for systolic blood pressure > 160 mm Hg. Chronic conditions: * Ongoing Tobacco Abuse; with COPD complicating #1 & #2 - No evidence of acute flare at this time. Tobacco cessation was very strongly encouraged. * Hyperlipidemia - Restart statin and check Lipid Profile this admission in light * Chronic RBBB * History of blindness in the right eye - Stable. DVT prophylaxis not indicated.
[2023-07-13] MEDS: Aspirin E.C. 81 MG Tablet PO (08:22)
--- NOTE | 2023-07-13 09:06 | NURSING ---
Report called to [employer].
--- NOTE | 2023-07-13 09:25 | CASEMGMT ---
RN CM NOTE: Pt has KRISTY and can transfer to any tertiary hospital of choice, if transfer is recommended. Bushra LINON RN CM
--- NOTE | 2023-07-13 11:40 | DS.PCM_ITS ---
Providers Date of Admission: 07/13/23 Primary Care Physician: Janee Primary Care Phys Consultations 07/13/23 02:54 Consult: Cardiology Routine Consulting Provider: Ryley Gautam Reason for Consult: Chest Pain EMERGENT Consult: No MD Notified: Yes Date Notified: 07/13/23 Time Notified: 06:45 Method of Notification: Text Method of Consult:: In-Person Reason For Visit: NSTEMI AND UNCONTROLLED HYPERTENSION Diagnosis Discharge Diagnosis (1) NSTEMI, initial episode of care: Status: Acute Code(s): I21.4 - Non-ST elevation (NSTEMI) myocardial infarction (2) Uncontrolled hypertension: Status: Acute Code(s): I10 - Essential (primary) hypertension Plan NSTEMI * Initial troponin of 458 pg/mL present on admission with second troponin trending upward to 723 pg/mL in the setting of a known history of CAD; s/p stent * ASA, Plavix, statin and full-dose Lovenox plus prn SL NTG. * Left heart cath had distal left main disease. Dr. Gautam reached out to [facility] and pt has been accepted by Dr. Claire. Uncontrolled Hypertension * Improved. Likely 2/2 Medical Noncompliance likely precipitating #1 - Restart home regimen plus give prn IV Hydralazine for systolic blood pressure > 160 mm Hg. Chronic conditions: * Ongoing Tobacco Abuse; with COPD complicating #1 & #2 - No evidence of acute flare at this time. Tobacco cessation was very strongly encouraged. * Hyperlipidemia - Restart statin and check Lipid Profile this admission in light * Chronic RBBB * History of blindness in the right eye - Stable. DVT prophylaxis not indicated. Medications at Discharge Home Medications aspirin 81 mg tablet,delayed release 81 mg PO DAILY #30 tabs 01/17/22 losartan 100 mg tablet (Cozaar) 100 mg PO DAILY #30 tabs 01/17/22 metoprolol succinate 50 mg tablet,extended release 24 hr 50 mg PO DAILY #30 tabs 01/17/22 Hospital Course Procedures Cardiac catheterization Summary of Care Provided Minutes Spent on Discharge: 32 Weight / BMI Weight Weight: 110.722 kg Body Mass Index (BMI) 29.7 ABG / Lab / Microbiology Data 07/13/23 04:03 07/13/23 04:03 Laboratory: Laboratory Results - last 24 hr 07/12/23 22:10: WBC 8.9, RBC 5.66, Hgb 16.9 H, Hct 47.2, MCV 83.4, MCH 29.9, MCHC 35.8, RDW Std Deviation 40.4, RDW Coeff of Juan José 13.5, Plt Count 192, MPV 9.0, Immature Gran % (Auto) 0.600, Neut % (Auto) 61.7, Lymph % (Auto) 26.6, [place] % (Auto) 7.1, Eos % (Auto) 2.5, Baso % (Auto) 1.5 H, Absolute Neuts (auto) 5.5, Absolute Lymphs (auto) 2.36, Nucleated RBC % 0, PT 13.6, INR 1.0, APTT 30.7, D- Dimer Quant (PE/DVT) 0.42, Sodium 139, Potassium 3.5, Chloride 107, Carbon Dioxide 25.0, Anion Gap 7, BUN 17, Creatinine 1.18, Estim Creat Clear Calc 91.03, Est GFR (MDRD) Af Amer 81, Est GFR (MDRD) Non-Af 67, BUN/Creatinine Ratio 14.4, Glucose 195 H, Calcium 8.6, Magnesium 2.1, Troponin I High Sens 458 H* 07/13/23 00:25: Troponin I High Sens 723 H* 07/13/23 04:03: WBC 9.4, RBC 5.21, Hgb 15.7, Hct 44.4, MCV 85.2, MCH 30.1, MCHC 35.4, RDW Std Deviation 41.9, RDW Coeff of [place] 13.7, Plt Count 180, MPV 9.2, D- Dimer Quant (PE/DVT) 0.37, Sodium 140, Potassium 3.9, Chloride 106, Carbon Dioxide 26.0, Anion Gap 8, BUN 18, Creatinine 1.07, Estim Creat Clear Calc 100.07, Est GFR (MDRD) Af Amer 90, Est GFR (MDRD) Non-Af 75, BUN/Creatinine Ratio 16.8, Glucose 147 H, Calcium 8.3 L, Total Bilirubin 0.60, AST 22, ALT 30, Alkaline Phosphatase 86, Troponin I High Sens 850 H*, Total Protein 7.0, Albumin 3.3, Globulin 3.7, Albumin/Globulin Ratio 0.9, Triglycerides 288 H, Cholesterol 144, LDL Cholesterol 62, VLDL Cholesterol 58 H, HDL Cholesterol 24 L, TSH 2.21 Radiography Diagnostic Testing: Radiology Impression Chest X-Ray 07/12/23 22:12 IMPRESSION: No radiographic evidence of acute cardiopulmonary disease. Electronically Signed: Kelley More MD at 23:31 EDT Reading Location ID and State: [facility] / [place] Tel , Service support , Echocardiogram 07/13/23 02:54 Interpretation Summary Normal LV size. Severe concentric left ventricular hypertrophy. The left ventricular ejection fraction is 60 %. Left ventricular systolic function is normal. Stage 2 diastolic dysfunction. The global longitudinal strain is severely abnormal. The global longitudinal strain = -10.9% (abnormal). Ordering Physician: Brock Russo Performed By: Breanna Lazaro RDCS D/C Instructions Discharge Diet: Low fat / Low cholesterol Meaningful Use Info Meaningful Use Diagnoses (Choose all that apply): AMI AMI/Post PCI/Angioplasty Aspirin given w/in 24hrs of arrival?: Yes ASA at discharge?: Yes Antiplatelet Therapy at Discharge:: Yes Statins at discharge?: Yes Anderson/ARB at discharge?: Yes Beta Pasquale at discharge?: Yes Done w/ Acute AK measure.: Yes Documented LVEF (%): 60 Discharge Plan Admission Admit Date/Time: 07/13/23 01:13 Primary Reason for Your Visit: Myocardial infarction. Attending Provider: Suhail Acevedo Primary Care Provider: Care Physician,No Primary Consulting Providers: Brock Russo; Ryley Gautam Discharge Orders/Prescriptions Prescriptions: No Action losartan [Cozaar] 100 mg tablet 100 mg PO DAILY Qty: 30 0RF metoprolol succinate 50 mg tablet extended release 24 hr 50 mg PO DAILY Qty: 30 0RF aspirin 81 mg tablet,delayed release (DR/EC) 81 mg PO DAILY Qty: 30 0RF Referrals / Follow Up: Care Physician,No Primary [Primary Care Provider] - NOT,DEFINED [Non-Staff] - Disposition Disposition (needs filled in before D/C Order can be placed): Acute Care Hospital Charges/Coding Visit Charges Inpatient E&M: 21495 Disch Hosp >30min
--- NOTE | 2023-07-13 12:05 | NURSING ---
Report called RN Nichol at [facility] HLU/T1. Spouse aware patient being transferred, spouse given pt's room number, time patient to be picked up, and phone number to nurses station at [facility]. Pt leaving with PIV x1 and all belongings.
--- NOTE | 2023-07-18 14:26 | CL.D_ITS ---
Patient Name: GONZALES SUMNER Study Date: 07/13/2023 Performing: Ryley Gautam MD Ht: 76 inches 193.04 cm : 1960 Wt: 244.4 lbs 110.72 kg Age: 62 Gender: male BSA: 2.41 PROCEDURE(S) PERFORMED [id number])C/COR CLINICAL PROFILE AND INDICATIONS Indications: Suspected CAD Heart Failure: None Stress/Imaging Stress/Image Study Performed: No CAD Presentations: Non-STEMI. Symptom onset Date/Time: 07/12/23 Time Not Available CONCLUSIONS Severe distal left main disease, proximal LAD disease and ostial circumflex artery disease. Preserved ejection fraction. RECOMMENDATIONS Surgery consult for coronary revascularization DESCRIPTION OF PROCEDURE The patient arrived to the procedure lab. The risks and benefits of the procedure as well as a full description of our services here and current unavailability of surgical backup were fully explained to the patient and/or their significant other prior to the catheterization. The Timeout was completed, verifying the correct patient and procedure. The patient's procedural site was prepped and draped in the usual fashion. Local anesthetic was given subcutaneously to right radial region with Lidocaine 2%. Using a modified Seldinger technique, arterial access was obtained via the right radial artery, a 6Fr sheath was inserted. Right Coronary Artery selective angiography was then performed in multiple views using a 5 Fr. 4.0 [place] catheter. Left Coronary Artery selective angiography was performed in multiple views using a 5 Fr. 4.0 [place] catheter.The arterial sheath was pulled and a TR Band was applied for hemostasis 10 ML OF AIR CORONARY ANGIOGRAPHY DOMINANCE: Right Dominant LEFT HEART ASSESSMENT Left Ventricular Ejection Fraction: by Echo 70 % Normal LV wall motion Normal Left Ventricular systolic function LEFT MAIN: Distal left main with 95% stenosis bifurcating to the left anterior descending artery and left circumflex artery. LEFT ANTERIOR DESCENDING ARTERY: Ostial LAD with 90% stenosis and previously placed stent in the proximal LAD with mild in-stent stenosis and mild diffuse distal disease CIRCUMFLEX ARTERY: Ostial circumflex artery with 90% stenosis and mild diffuse distal disease RIGHT CORONARY ARTERY: Dominant right coronary artery previously stented in the midsegment with patent stent with 20% in-stent stenosis and stent in the posterolateral vessel with 30% in-stent stenosis. Mild distal diffuse disease. COMPLICATIONS No Complications PROCEDURE MEDICATIONS Fentanyl 50 mcg IV Versed 1 mg IV Oxygen: 2 L/min via nasal cannula Heparin given IA 07/13/2023 09:32:04 Verapamil 2.5mg, Ntg 100mcgs, 3000 units of Heparin given IA 07/13/2023 09:32:04 SUMMARY OF HEMODYNAMIC DATA Time AIR REST ECG 09:19:16 Art 130/65 (85) 09:37:07 AO 135/79 (103) SA 09:47:38 Signed By Ryley Gautam MD On 07/13/2023 10:13:31 Ryley Gautam MD
== END 2023-07-13 12:05 | disposition short-term general hospital (02) | DRG 190 ==
LOC: ED 22:32 → PCU 07-13 01:47
PROVIDERS: Admitting Provider Internal Medicine; Emergency Provider Emergency Medicine
DX: I21.4 Non-ST elevation (NSTEMI) myocardial infarction (principal); E66.3 Overweight; I45.10 Unspecified right bundle-branch block; J44.9 Chronic obstructive pulmonary disease, unspecified; I16.1 Hypertensive emergency; I25.10 Atherosclerotic heart disease of native coronary artery without angina pectoris; E78.5 Hyperlipidemia, unspecified; F17.210 Nicotine dependence, cigarettes, uncomplicated; Z79.82 Long term (current) use of aspirin; Z91.199 Patient's noncompliance with other medical treatment and regimen due to unspecified reason; R00.0 Tachycardia, unspecified; Z95.5 Presence of coronary angioplasty implant and graft; Z68.29 Body mass index [BMI] 29.0-29.9, adult; Z82.49 Family history of ischemic heart disease and other diseases of the circulatory system
CPT/HCPCS: 36415; 71045; 80048; 80053; 80061; 83735; 84443; 84484; 85025; 85027; 85379; 85610; 85730; 93005; 93306; 93454; 99152; 99153; 99285; J7040; Q9967; A4216; C1769; C1894; J2405

== ENCOUNTER → 2023-09-14 | Outpatient (CLI) | payer MEDICAID, SELFPAY ==
[2023-09-14 09:53] LABS: Bacteria 0 SEEN /hpf (None Seen); Mucous, Urine 0 SEEN /hpf (<or=2+); Squamous Epithelial Cells - UA 0 SEEN /hpf (0-5); White Blood Cells 0 SEEN /hpf (0-5)
[2023-09-14 12:14] LABS: Color, Urine Yellow (Yellow); Glucose, Dipstick Normal (Normal); Ketone-Dipstick 5 mg/dl (Negative); Leukocyte Esterase-Dipstick 25 /ul (Negative); Nitrite-Dipstick Negative (Negative); Occult Blood-Urine 10 /ul (Negative); Protein-Dipstick 30 mg/dl (Negative); Specific Gravity, Urine 1.025 (1.002-1.030); Urine Clarity Clear (Clear); Urine Urobilinogen 1 mg/dl (Normal)
[2023-09-14 12:15] LABS: Urine Bilirubin Dipstick 1 mg/dL (Negative)
[2023-09-14 12:24] LABS: Red Blood Cells-Urine 0-5 SEEN /hpf (0-5)
[2023-09-14 12:25] LABS: Absolute Neutrophil Count 5.6 X10^3/uL (2.0-7.7); Basophil# 0.09 X10^3/uL; Eosinophil# 0.17 X10^3/uL; Hematocrit 45.3 % (40-54); Hemoglobin 15.6 g/dL (13.0-16.5); Lymphocyte % 24.2 % (19-41); Mean Corp Hgb Conc 34.4 g/dL (32-36); Mean Corpuscular Hgb 29.3 pg (27.0-32.0); Mean Corpuscular Volume 85.2 fL (80-94); Mean Platelet Vol. 8.8 fl (6.2-12.0); Monocyte# 0.68 X10^3/uL; Monocyte% 7.8 % (0-10); NRBC Flagged by Analyzer 0 % (0-5); Neutrophil # 5.62 X10^3/uL (2.7-7.7); Neutrophil % 64.8 % (47-70); Platelet Count 220 K/mm3 (150-450); RBC Distribution Width CV 14.8 % (11.6-14.6); Red Blood Count 5.32 M/mm3 (4.6-6.2); White Blood Count 8.7 K/mm3 (4.4-11.0)
[2023-09-14 12:32] LABS: ALB/GLOB Ratio 0.8 RATIO (0.9-2.4); AST(SGOT) 22 U/L (15-37); Alanine Aminotransfer ALT/SGPT 38 U/L (16-61); Albumin, Serum 3.6 g/dL (3.2-5.0); Alkaline Phosphatase 112 U/L (45-117); Anion Gap 2 (5-15); BUN 18 mg/dL (7-18); BUN/Creat Ratio 14.8 RATIO (10-20); Calcium,Total 9.2 mg/dL (8.5-10.1); Chloride 107 mmol/L (98-107); Creatinine, Serum 1.22 mg/dL (0.70-1.30); EST Glomerular Filtration Rate 64 mL/min (>60); Est Glom Filt Rate - Afr Amer 78 mL/min (>60); Globulin 4.3 g/dL (2.2-4.2); Glucose 128 mg/dL (74-106); PSA,Total- Diagnostic 0.72 ng/mL (0.0-4.0); Protein, Total 7.9 g/dL (6.4-8.2); Sodium Level 138 mmol/L (136-145)
== END | disposition home or self-care (01) ==
LOC: BIMLAB 09:46
PROVIDERS: PCP Internal Medicine; Visit Provider Internal Medicine
DX: R35.0 Frequency of micturition (principal)
CPT/HCPCS: 36415; 80053; 81001; 84153; 85025; 87086

== ENCOUNTER → 2023-09-28 | Outpatient (CLI) | payer MEDICAID, SELFPAY ==
--- NOTE | 2023-09-28 19:02 | CT_ITS ---
STUDY: LOW DOSE CT LUNG CANCER SCREENING REASON FOR EXAM: Male, 62 years old. Screening. Patient smoked 3 packs per day for 40 years. RADIATION DOSAGE (If Supplied By Facility): CTDIvol = ( 4.02 ) mGy, DLP = ( 148.98 ) mGycm TECHNIQUE: No contrast was administered. Low dose technique was utilized (average mAS-38 and kVp 120). 1.25 mm axial source images with a slice interval of 1.25-mm were reconstructed in lung windows. 2.5 mm axial source images with a slice interval of 2.5-mm were reconstructed in lung windows. 5.0 mm axial source images with a slice interval of 5.0-mm were reconstructed in soft tissue windows. COMPARISON: None. NODULES: There is a 6.8 mm calcified granuloma in the lateral aspect of the left upper lobe. Emphysema: No significant emphysematous changes seen. Findings suggestive of postoperative scarring along the anterior medial aspect of the lingular segment of the left upper lobe. Endobronchial lesion: None Aorta: Mild atherosclerotic calcification of the aortic arch. CORONARY ARTERIES: Coronary artery calcification is seen. Heart: Prior CABG. Pulmonary artery: Unremarkable Mediastinal nodes: Unremarkable Other chest and abdominal findings: CT/Low Dose CT Lung Screening IMPRESSION: Lung-RADS category 2 - Continue annual screening with LDCT in 12 months. IMPORTANT NOTES FOR USE: ACR Lung-RADS Version 1.1 Assessment Categories Release Date: 2018 Category: Coded 0-4 bases on nodule(s) with highest degree of suspicion. Negative screen is defined as categories 1 and 2; a positive screen is defined as categories 3 and 4. Category 3 and 4A nodules that are unchanged on interval CT should be coded as category 2, and individuals returned to screening in 12 months. Category 4X: Category 3 or 4 nodules with additional imaging findings that increase the suspicion of lung cancer, such as spiculation, GGN that doubles in size in 1 year, enlarged lymph notes, etc. Category Modifiers: S (significant finding unrelated to lung cancer) Electronically Signed: Eleazar Clarke MD at 10:16 EDT ,
== END | disposition home or self-care (01) ==
LOC: CT 18:51
PROVIDERS: PCP Internal Medicine; Referring Provider Internal Medicine; Visit Provider Internal Medicine
DX: Z12.2 Encounter for screening for malignant neoplasm of respiratory organs (principal)
CPT/HCPCS: 71271

== ENCOUNTER → 2023-10-09 | Outpatient (CLI) | payer MEDICAID, SELFPAY ==
[2023-10-09 12:30] LABS: ALB/GLOB Ratio 0.9 RATIO (0.9-2.4); AST(SGOT) 21 U/L (15-37); Alanine Aminotransfer ALT/SGPT 31 U/L (16-61); Albumin, Serum 3.6 g/dL (3.2-5.0); Alkaline Phosphatase 97 U/L (45-117); Anion Gap 3 (5-15); BUN 27 mg/dL (7-18); BUN/Creat Ratio 19.7 RATIO (10-20); Calcium,Total 9.1 mg/dL (8.5-10.1); Chloride 103 mmol/L (98-107); Cholesterol 96 mg/dL (200); Creatinine, Serum 1.37 mg/dL (0.70-1.30); EST Glomerular Filtration Rate 56 mL/min (>60); Est Glom Filt Rate - Afr Amer 68 mL/min (>60); Globulin 4.2 g/dL (2.2-4.2); Glucose 124 mg/dL (74-106); High Density Lipoprotein 26 mg/dL; Potassium 4.2 mmol/L (3.5-5.1); Protein, Total 7.8 g/dL (6.4-8.2); Sodium Level 135 mmol/L (136-145); Triglycerides 374 mg/dL; Very Low Density Lipoprotein 75 mg/dL (5-40)
== END | disposition home or self-care (01) ==
LOC: LAB 10:39
PROVIDERS: PCP Internal Medicine; Referring Provider Internal Medicine Cardiovascular Disease; Visit Provider Internal Medicine Cardiovascular Disease
DX: E78.5 Hyperlipidemia, unspecified (principal)
CPT/HCPCS: 36415; 80053; 80061